=== PATIENT | male | born 1940 | race Caucasian/White ===

== ENCOUNTER 2017-03-11 12:57 | Inpatient (IN) | payer OTHER, MEDICARE ==
[~2017-03-11] VITALS: Ht 152.4 cm; Wt 77.6 kg
[~2017-03-11 12:57] MED LIST: ACET-2619 PO; AMLO-27 PO; AMLO10TA PO; ATOR20TA40 PO; BISA10SU27 PR; CALC1TAB75 PO; CIPR500T4 PO; CLON0.1T79 PO; FERR325E14 PO; FLUT0.057 NS; FLUT1DSK2 IH; GLU1I SUBQ; INSU100S22 SUBQ; LORA-476 PO; METO-460 PO; MIRABULK PO; MULT-1469 PO; ONDA4ODT1 PO; PANT40PD1 PO; POTA20TE62 PO; PRON INH; SERT50TA PO; SIME80CT70 PO; SLIDE SUBQ; SODI650T2 PO; SYN.1 PO; TRAM50TA94 PO; ZINC220C12 PO; [UNRECOGNIZED DRUG - CODE] PO; [UNRECOGNIZED DRUG - CODE] SUBQ
--- NOTE | 2017-03-11 12:57 | NUR ---
PT BIBA TO BED 6.
[2017-03-11 13:01] VITALS: BP 143/71
--- NOTE | 2017-03-11 13:05 | NUR ---
77M BIBA FROM [facility] C/O INCREASED CONFUSION FROM CHRONIC UTI; PT A&OX1 AT THIS TIME, VERBALLY RESPONSIVE; PERRLA; BL LUNG SOUNDS CLEAR, RR EVEN/UNLABORED AT THIS TIME; PT DENIES PAIN, N/V/D AT THIS TIME; PT NOTED W/ 16FR HORTON FROM [facility], SHUNT TO LEFT UPPER ARM, DIALYSIS SATURDAY, SATURDAY, SATURDAY; HX: UNSPECIFIED DEMENTIA, MAJOR DEPRESSION, ANXIETY DISORDER, HTN, GERD, OSTEOMYELITIS, ESRD, UTI, MRSA; PT NOTED W/ PRESSURE ULCER TO SACRAL REGION, PURPLE/RED DISCOLORATION TO LEFT ARM, RT HEEL DIABETIC ULCER; PT PLACED ON MONITOR, RESTING IN BED W/ HOB ELEVATED AND IN LOWEST POSITION; POSITIONED FOR COMFORT; ER MD MADE AWARE OF STATUS. WILL CONTINUE TO MONITOR.
--- NOTE | 2017-03-11 13:05 | NUR ---
Note undone in EDM - 03/11/17 at 1739 by MEDSS 77M ALINE FROM [facility] C/O INCREASED CONFUSION FROM CHRONIC UTI; PT A&OX1 AT THIS TIME, VERBALLY RESPONSIVE; PERRLA; BL LUNG SOUNDS CLEAR, RR EVEN/UNLABORED AT THIS TIME; PT DENIES PAIN, N/V/D AT THIS TIME; PT NOTED W/ 16FR HORTON FROM [facility], SHUNT TO LEFT UPPER ARM, DIALYSIS SATURDAY, SATURDAY, SATURDAY; HX: UNSPECIFIED DEMENTIA, MAJOR DEPRESSION, ANXIETY DISORDER, HTN, GERD, OSTEOMYELITIS, ESRD, UTI, MRSA; PT NOTED W/ PRESSURE ULCER TO SACRAL REGION (STAGE 4), PURPLE/RED DISCOLORATION TO LEFT ARM, RT HEEL DIABETIC ULCER; PT PLACED ON MONITOR, RESTING IN BED W/ HOB ELEVATED AND IN LOWEST POSITION; POSITIONED FOR COMFORT; ER MD MADE AWARE OF STATUS. WILL CONTINUE TO MONITOR.
[2017-03-11] MEDS ORDERED: NACL 0.9% 1,000 ML IV ONE (13:09)
[2017-03-11] MEDS ORDERED: [UNRECOGNIZED DRUG - CODE] IJ (13:24)
--- NOTE | 2017-03-11 13:45 | NUR ---
PT TAKEN TO CT VIA [facility]UR[facility]I ACCOMPANIED BY [facility] AT THIS TIME.
[2017-03-11 13:47] LABS: BASOPHILS # (AUTO) 0.1 K/uL (0.00-0.22); BASOPHILS % (AUTO) 1.2 % (0.0-2.0); EOSINOPHILS # (AUTO) 0.7 K/uL (0-0.4); EOSINOPHILS % (AUTO) 8.3 % (0.0-4.0); HEMATOCRIT 36.3 % (36-52); LYMPHOCYTES # (AUTO) 1.7 K/uL (2.0-11.5); LYMPHOCYTES % (AUTO) 21.1 % (20.5-51.1); MEAN CORPUSCULAR HEMOGLOBIN 33 pg (27-31); MEAN CORPUSCULAR HGB CONC 33 g/dL (33-37); MEAN CORPUSCULAR VOLUME 98 fL (80-94); MONOCYTES # (AUTO) 0.7 K/uL (0.8-1.0); MONOCYTES % (AUTO) 8.5 % (1.7-9.3); NEUTROPHILS % (AUTO) 60.9 % (42.2-75.2); PLATELET COUNT (AUTO) 259 K/uL (140-450); RED BLOOD CELL COUNT(AUTO) 3.69 MIL/uL (4.20-6.10); RED CELL DISTRIBUTION WIDTH 16.1 % (11.6-13.7); WHITE BLOOD COUNT (AUTO) 8.2 K/uL (4.8-10.8)
[2017-03-11 14:00] LABS: ANION GAP 11.9 (8-16); CALCIUM 8.9 mg/dL (8.5-10.1); CARBON DIOXIDE 31.3 mmol/L (21-32); CHLORIDE 108 mmol/L (98-107); CREATININE 3.5 mg/dL (0.6-1.3); GLUCOSE 91 mg/dL (74-106); POTASSIUM 3.2 mmol/L (3.5-5.1); SODIUM SERUM 148 mmol/L (136-145); UREA NITROGEN, BLOOD 44 mg/dL (7-18)
[2017-03-11 14:06] LABS: ALANINE AMINOTRANSFERASE 35 U/L (12-78); ALCOHOL, BLOOD < 3 mg/dL (<3); ALKALINE PHOSPHATASE 108 U/L (46-116); ASPARTATE AMINOTRANSFERASE 33 U/L (15-37); BILIRUBIN,DIRECT 0.1 mg/dL (0.0-0.3); TOTAL BILIRUBIN 0.5 mg/dL (0.0-1.0); TOTAL PROTEIN, SERUM 7.3 g/dL (6.4-8.2)
[2017-03-11 14:11] LABS: INR 1.1 (0.8-1.2); PARTIAL THROMBOPLASTIN TIME 27.9 secs (22-35.6); PROTHROMBIN TIME 10.7 secs (10.8-13.4)
[2017-03-11 14:24] LABS: LACTIC ACID 0.6 mmol/L (0.4-2.0)
--- NOTE | 2017-03-11 14:40 | NUR ---
PT APPEARS TO BE SLEEPING COMFORTABLY IN BED; RR EVEN/UNLABORED; NO ACUTE DISTRESS NOTED AT THIS TIME; WILL CONTINUE TO MONITOR.
[2017-03-11 15:26] LABS: APPEARANCE,URINE HAZY (CLEAR); BILIRUBIN,URINE NEGATIVE (NEGATIVE); BLOOD, URINE 3+ (NEGATIVE); COLOR,URINE YELLOW (YELLOW); LEUKOCYTE ESTERASE ,URINE 2+ (NEGATIVE); NITRITE, URINE NEGATIVE (NEGATIVE); PH,URINE 8.5 (5.0-9.0); PROTEIN,URINE 2+ (NEGATIVE); UGLUCOSE NEGATIVE (NEGATIVE); UROBILINOGEN,URINE 0.2 EU/dL (0.2 - 1)
[2017-03-11 15:35] LABS: AMPHETAMINE, URINE NEG. ng/ml (NEG <=1000); BARBITURATE, URINE NEG. ng/ml (NEG <=200); BENZODIAZEPINE, URINE NEG. ng/mL (NEG <=200); CANNABINOID, URINE NEG. ng/mL (NEG <=50); COCAINE, URINE NEG. ng/mL (NEG <=300); OPIATE, URINE NEG. ng/mL (NEG <=2000); PHENCYCLIDINE SCREEN,URINE NEG. ng/mL (NEG <=25)
[2017-03-11 16:00] LABS: BACTERIA,URINE 3+ /HPF (None Seen); RBC,URINE 11-20 (MOD) /HPF (0-5); SQUAMOUS EPITHELIAL CELL,UR 0-3 (FEW) /LPF (0-3 (FEW)); WBC,URINE 80-100 /HPF (0-5)
[2017-03-11] MEDS ORDERED: cefTRIAXone 2,000 MG in DEXTROSE 5% 100 ML IV ONE (16:45)
--- NOTE | 2017-03-11 16:45 | NUR ---
PT APPEARS TO BE RESTING COMFORTABLY IN BED; RR EVEN/UNLABORED; NO ACUTE DISTRESS NOTED AT THIS TIME; WILL CONTINUE TO MONITOR.
[2017-03-11] MEDS ORDERED: cefTRIAXone 2,000 MG VIAL ONE (16:53)
[2017-03-11] MEDS ORDERED: ALBUTEROL 0.083% 2.5 MG/3 ML NEBU INH PRN (17:05)
[2017-03-11] MEDS ORDERED: ONDANSETRON 4 MG ODT PO PRN (17:05)
[2017-03-11] MEDS ORDERED: GLUCAGON 1 MG VIAL SUBQ PRN (17:05)
[2017-03-11] MEDS ORDERED: BISACODYL 10 MG SUPP RC PRN (17:05)
[2017-03-11] MEDS ORDERED: LORazepam 2 MG/ML VIAL IVP PRN (17:15)
--- NOTE | 2017-03-11 17:43 | NUR ---
Gita jeffery in [facility] - 03/11/17 at 1743 by NALLELY REPORT GIVEN TO COSME CHAHAL.
--- NOTE | 2017-03-11 17:43 | NUR ---
REPORT GIVEN TO FELA RN; ASKED TO BRING PT TO FLOOR IN 15 MINUTES ROOM IS NOT READY; WILL CONTINUE TO MONITOR.
--- NOTE | 2017-03-11 18:07 | NUR ---
Patient will be admitted to care of DR. SOTO. Admited to TELEMETRY. Will go to room 114. Belongings list completed. Report to COSME CHAHAL.
--- NOTE | 2017-03-11 18:25 | NUR ---
PT BROUGHT IN FROM ER IN [facility], PT SLEEPING WITH EYES CLOSED, OPENS EYES TO VOICE, RESP EVEN UNLABORED ON ROOM AIR, 20G PIV TO RIGHT AC, SL'D, SUPRAPUBIC CATH IN PLACE, DRAINING CLOUDY, VITALS HR 86, BP 160/77, RR 18, O2SAT 97% ON ROOM AIR, CALL OBANDO WITHIN REACH, SIDE RAILS UP, BED LOCKED IN LOW POSITION, WILL CONTINUE TO MONITOR.
--- NOTE | 2017-03-11 19:11 | NUR ---
REPORT GIVEN TO TRAINING PROGRAM MANAGER NURSE, PT IN STABLE CONDITION.
--- NOTE | 2017-03-11 19:30 | NUR ---
RECEIVED REPORT FROM DAY RN AT BEDSIDE, PATIENT IS AAOX2 RESTING IN BED, PATIENT IS LETHARGIC, ON ROOM AIR, NO SOB OR SIGN OF DISTRESS, IV TO RIGHT AC PATENT AND INTACT, SKIN NON INTACT WITH SACRAL ULCERED, RIGHT HEEL ULCER AND BRUISING TO EXTREMITIES. NOTED SUPRAPUBIC CATHETER DRAINING TO GRAVITY, DISCUSSED PLAN OF CARE WITH PATIENT, PATIENT NEEDS REINFORCEMENT, SAFETY MEASURES CHECKED, CALL LIGHT WITHIN REACH, WILL CONTINUE TO MONITOR
[2017-03-11 20:00] VITALS: BP 160/72
--- NOTE | 2017-03-11 20:15 | NUR ---
FAMILY AT BEDSIDE, PATIENT STATED HE WAS HUNGRY, FAMILY FED PATIENT SANDWICH, PATIENT TOLERATED WELL.
[2017-03-11] MEDS: traMADol 50 MG TAB PO SCH (20:36)
[2017-03-11] MEDS: ATORVASTATIN 20 MG TAB PO SCH (20:36)
[2017-03-11] MEDS: BLOOD GLUCOSE MONITORING 1 DEV DEV FS SCH (20:36)
[2017-03-11] MEDS: FLUTICASONE NASAL 50 MCG/ACTUATION 16 GM BTL NS SCH (20:37)
--- NOTE | 2017-03-11 20:38 | NUR ---
PM MEDS ADMINISTERED, PATIENT TOLERATED WELL, CALL LIGHT WITHIN REACH. WILL CONTINUE TO MONITOR
[2017-03-11] MEDS ORDERED: NON-FORMULARY ITEM (Insulin Glargine,Hum.rec.anlog (Lantus Solostar) 10 UNIT) SUBQ SCH (21:00)
[2017-03-11] MEDS ORDERED: VITAMIN D3 PO SCH (21:00)
[2017-03-11] MEDS ORDERED: NON-FORMULARY ITEM (Clonidine Hydrochloride (Clonidine) 0.1 MG) PO SCH (21:00)
[2017-03-11] MEDS ORDERED: FERROUS SULFATE PO SCH (21:00)
[2017-03-11] MEDS ORDERED: CALCIUM CARBONATE PO SCH (21:00)
[2017-03-11] MEDS ORDERED: NON-FORMULARY ITEM (Fluticasone/Salmeterol* (Advair 250-50 Diskus*) 1 DSK) IH SCH (21:00)
--- NOTE | 2017-03-11 22:30 | NUR ---
PATIENT SLEEPING, NO SIGN OF DISTRESS, CALL LIGHT WITHIN REACH. WILL CONTINUE TO MONITOR.
[2017-03-12] VITALS: BP 160/72
--- NOTE | 2017-03-12 00:15 | NUR ---
VITAL SIGNS STABLE, NO SOB OR SIGN OF DISTRESS, CALL LIGHT WITHIN REACH. WILL CONTINUE TO MONITOR.
--- NOTE | 2017-03-12 02:30 | NUR ---
PATIENT SLEEPING, NO SIGN OF DISTRESS, CALL LIGHT WITHIN REACH. WILL CONTINUE TO MONITOR.
--- NOTE | 2017-03-12 04:00 | NUR ---
PATIENT SLEEPING, NO SIGN OF DISTRESS, CALL LIGHT WITHIN REACH, WILL CONTINUE TO MONITOR
[2017-03-12 06:13] LABS: BASOPHILS # (AUTO) 0.1 K/uL (0.00-0.22); BASOPHILS % (AUTO) 1.3 % (0.0-2.0); EOSINOPHILS # (AUTO) 0.8 K/uL (0-0.4); EOSINOPHILS % (AUTO) 9.4 % (0.0-4.0); HEMATOCRIT 35.4 % (36-52); HEMOGLOBIN 11.2 g/dL (12.0-18.0); LYMPHOCYTES # (AUTO) 1.7 K/uL (2.0-11.5); LYMPHOCYTES % (AUTO) 19.7 % (20.5-51.1); MEAN CORPUSCULAR HEMOGLOBIN 32 pg (27-31); MEAN CORPUSCULAR HGB CONC 32 g/dL (33-37); MEAN CORPUSCULAR VOLUME 100 fL (80-94); MONOCYTES # (AUTO) 0.8 K/uL (0.8-1.0); MONOCYTES % (AUTO) 9.6 % (1.7-9.3); NEUTROPHILS # (AUTO) 5.1 K/uL (1.8-7.7); PLATELET COUNT (AUTO) 260 K/uL (140-450); RED BLOOD CELL COUNT(AUTO) 3.56 MIL/uL (4.20-6.10); RED CELL DISTRIBUTION WIDTH 15.9 % (11.6-13.7); WHITE BLOOD COUNT (AUTO) 8.5 K/uL (4.8-10.8)
[2017-03-12 06:24] LABS: ANION GAP 15.1 (8-16); CALCIUM 8.5 mg/dL (8.5-10.1); CARBON DIOXIDE 26.7 mmol/L (21-32); CHLORIDE 109 mmol/L (98-107); GLUCOSE 89 mg/dL (74-106); SODIUM SERUM 148 mmol/L (136-145); UREA NITROGEN, BLOOD 48 mg/dL (7-18)
[2017-03-12 06:29] LABS: MAGNESIUM 1.9 mg/dL (1.8-2.4); PHOSPHORUS 3.1 mg/dL (2.5-4.9)
[2017-03-12 06:35] LABS: POTASSIUM 2.8 mmol/L (3.5-5.1)
--- NOTE | 2017-03-12 06:58 | NUR ---
RECEIVED CRITICAL K+ 2.8, PAGED Checo LOPEZ. RECEIVED ORDERS FOR K RIDER [id number], WILL FOLLOW UP WITH ORDERS.
[2017-03-12] MEDS: BLOOD GLUCOSE MONITORING 1 DEV DEV FS SCH ×4 (07:30→21:21)
--- NOTE | 2017-03-12 07:30 | NUR ---
RECEIVED PT REPORT AT BEDSIDE FROM NIGHT NURSE. PT IS SLEEPING AND SHOWS NO S/S OF DISTRESS NOTED ON ROOM AIR. NOTED IV ON THE RIGHT HAND INTACT AND PATENT. NOTED DRESSING ON THE RIGHT HEEL CLEAN DRY AND INTACT. PT HAS A SUPRAPUBIC CATHETER DRAINING CLOUDY STRAW URINE. PT BED IS LOWERED WITH HOB AT 45 DEGREES AND CALL LIGHT WITHIN REACH.
--- NOTE | 2017-03-12 07:30 | NUR ---
ENDORSED PATIENT TO DAY RN AT BEDSIDE, PATIENT IN STABLE CONDITION
[2017-03-12 08:00] VITALS: BP 172/89
[2017-03-12] MEDS ORDERED: KCL 20 MEQ/WATER INJ PREMIX 200 ML IV SCH (08:00)
--- NOTE | 2017-03-12 08:00 | NUR ---
PT BP 172/89. DR SOTO WAS PAGED TO NOTIFY NO BP MEDICATIONS LISTED FOR PT.
--- NOTE | 2017-03-12 08:15 | NUR ---
PT HAS BP MEDICATIONS ON EMAR WILL ADMINISTER SCHEDULED MEDICATIONS.
[2017-03-12] MEDS: FLUTICASONE NASAL 50 MCG/ACTUATION 16 GM BTL NS SCH ×2 (09:00→21:35)
--- NOTE | 2017-03-12 09:02 | NUR ---
PATIENT HAS BEEN SCREENED AND CATEGORIZED HIGH NUTRITION RISK. PATIENT WILL BE SEEN WITHIN 1-2 DAYS OF ADMISSION. 03/12/17-03/13/[address]
[2017-03-12] MEDS: FERROUS SULFATE 325 MG TABEC PO SCH ×2 (09:30→17:00)
[2017-03-12] MEDS: PANTOPRAZOLE 40 MG TABEC PO SCH (09:30)
[2017-03-12] MEDS: VIT-B COMP/VIT-C/FOLIC ACID 1 TAB PO SCH (09:30)
[2017-03-12] MEDS: ZINC SULF 220 MG CAP PO SCH (09:30)
[2017-03-12] MEDS: amLODIPine 5 MG TAB PO SCH (09:31)
--- NOTE | 2017-03-12 09:34 | NUR ---
ADMINISTERING SCHEDULED MEDICATIONS. PT IS AAOX1 AND SHOWS NO S/S OF DISTRESS NOTED ON ROOM AIR.
[2017-03-12] MEDS: cloNIDine 0.1 MG TAB PO SCH ×2 (09:36→21:36)
[2017-03-12] MEDS: CALCIUM CARB/VIT-D 500 MG/200 IU 1 TAB PO SCH ×2 (09:36→21:36)
[2017-03-12] MEDS: LEVOTHYROXINE 0.1 MG TAB PO SCH (09:37)
[2017-03-12] MEDS: POTASSIUM CHLORIDE 10 MEQ TABER PO SCH ×2 (09:37→17:00)
[2017-03-12] MEDS: ASCORBIC ACID 500 MG TAB PO SCH (09:37)
[2017-03-12] MEDS: SIMETHICONE 80 MG TAB.CHEW PO SCH ×3 (09:37→17:00)
[2017-03-12] MEDS: traMADol 50 MG TAB PO SCH ×2 (09:37→21:37)
--- NOTE | 2017-03-12 09:48 | NUR ---
PHARMACY MADE ME AWARE OF MEDICATIONS THAT NEED TO BE CLARIFIED BY DR. WILL NOTIFY DR SORENSON WHEN HE ARRIVES ON UNIT.
--- NOTE | 2017-03-12 10:26 | NUR ---
CALLED DR SORENSON TO CONFIRM HE WOULD COME IN TODAY TO SEE PT.
--- NOTE | 2017-03-12 10:30 | NUR ---
DR FRAGOSO CONFIRMED HE WOULD COME SEE PT LATER TODAY.
--- NOTE | 2017-03-12 11:30 | NUR ---
PT IS RESTING COMFORTABLY IN BED WITH AT BEDSIDE. PT SHOWS NO S/S OF DISTRESS NOTED ON ROOM AIR.
--- NOTE | 2017-03-12 11:45 | NUR ---
PT BEING SEEM BY DR FRAGOSO.
--- NOTE | 2017-03-12 12:00 | NUR ---
DR FRAGOSO WAS MADE AWARE OF CLARIFICATION OF MEDICATIONS FOR PT. PLACED IN ORDERS.
--- NOTE | 2017-03-12 12:30 | NUR ---
PT VOMITTED SOME OF HIS LUNCH. WILL ADMINISTER PRN MEDICATION FOR NAUSEA AND VOMITING.
[2017-03-12] MEDS: ONDANSETRON 4 MG/2 ML VIAL IVP PRN (13:23)
--- NOTE | 2017-03-12 13:50 | NUR ---
DR FRAGOSO NOTIFIED NURSE OF HD ORDERS. WILL CALL [facility] HD NURSE FOR HD LATER TODAY.
--- NOTE | 2017-03-12 14:00 | NUR ---
CALLED L[facility]ON LEE ABOUT PT ORDERS OF HD. LEVON LEE CONFIRMED NURSE WILL BE ON SITE AT 1600.
[2017-03-12 16:00] VITALS: BP 117/55
--- NOTE | 2017-03-12 16:00 | NUR ---
PT WAS CALLED FOR CONSENT FOR PT TO GET HD. CONSENT WAS VERIFIED BETWEEN TWO RNS (MARTHA RN AND VERNON RN). PT AGREED TO HD FOR PT. WILL CONTINUE WITH CARE.
--- NOTE | 2017-03-12 16:15 | NUR ---
PT HAD LARGE LOOSE BM. PT WAS GIVEN PERINEAL CARE, URINARY CATHETER CARE, CHANGED LINENS, AND REPOSITIONED. PT TOLERATED ACTIVITY WELL. PT STATES NO PAIN AT THIS TIME. PT HAS RHEUMATOLOGY NURSE SACRAL WOUND (PLEASE SEE WOUND ASSESSMENT). PT SHOWS NO S/S OF DISTRESS ON ROOM AIR. [facility] HD NURSE IS AT BEDSIDE. WILL CONTINUE TO MONITOR.
--- NOTE | 2017-03-12 16:26 | NUR ---
03/12/17 RD INITIAL ASSESSMENT COMPLETED PLEASE REFER TO NUTRITION ASSESSMENT UNDER CARE ACTIVITY FOR ESTIMATED NUTRITIONAL NEEDS. 1. CONTINUE 60 G CONSISTENT CARBOHYDRATE, CARDIAC DIET 2. ADD NOVASOURCE RENAL 1 CAN BID 3. CONTINUE NEPHRO-SHANTEL 1X/DAILY 4. CONTINUE ZINC 1X/DAILY 5. RD TO FOLLOW-UP 2-3 DAYS; HIGH RISK DICK TAPIA, RD
--- NOTE | 2017-03-12 17:30 | NUR ---
PT IS IN BED RESTING WHILE GETTING HD FROM [facility] NURSE. PT IS TOLERATING PROCEDURE WELL. PT SHOWS NO S/S OF DISTRESS ON ROOM AIR.
[2017-03-12] MEDS: INSULIN LISPRO SLIDING SCALE 100 UNITS/ML VIAL SUBQ PRN (17:42)
--- NOTE | 2017-03-12 19:30 | NUR ---
[facility] HD NURSE LET ME KNOW OF OUTPUT OF 2L AND BP STABLE AT 133/64. PT SHOWS NO S/S OF DISTRESS ON ROOM AIR. PT IN BED RESTING COMFORTABLY.
--- NOTE | 2017-03-12 20:00 | NUR ---
CANDLE MOLDER ALERT,VERBALLY RESPONSIVE. AFEBRILE, NOT IN ACUTE DISTRESS. NO PAIN OR DISCOMFORT NOTED. PT.HAD HEMODIALYSIS. WITH LEFT UPPER ARM AV SHUNT INTACT,(+) BRUIT. SUPRAPUBIC CATHETER DRAINING CLOUDY YELLOW URINE. VS STABLE, WILL CONTINUE TO MONITOR. NEEDS ATTENDED.
[2017-03-12] MEDS: INSULIN DETEMIR 100 UNITS/ML 10 ML VIAL SUBQ SCH (21:00)
--- NOTE | 2017-03-12 21:21 | NUR ---
ACCUCHECK=39. WILL GIVE D50 IVP.
[2017-03-12] MEDS: DEXTROSE 50% 50 ML SYR IVP PRN (21:25)
--- NOTE | 2017-03-12 21:25 | NUR ---
1 AMPULE D50 1 AMP GIVEN. WILL RECHECK BS.
--- NOTE | 2017-03-12 21:30 | NUR ---
DINNER GIVEN BY [employer] F[employer]ER.
[2017-03-12] MEDS: ATORVASTATIN 20 MG TAB PO SCH (21:36)
--- NOTE | 2017-03-12 21:36 | NUR ---
DUE MEDICATIONS GIVEN.
--- NOTE | 2017-03-12 23:03 | NUR ---
BS [id number].
[2017-03-13] VITALS: BP 121/56
--- NOTE | 2017-03-13 | NUR ---
ASLEEP,NOT IN ANY KIND OF DISTRESS. NO PAIN OR DISCOMFORT NOTED. SIDE RAILS UP,CALL LIGHT WITHIN REACH. KEPT WARM AND COMFORTABLE. VS REMAIN STABLE.
--- NOTE | 2017-03-13 04:00 | NUR ---
ASLEEP,NOT IN ANY KIND OF DISTRESS. NO PAIN OR DISCOMFORT NOTED. NO SIGNIFICANT CHANGE IN CONDITION. WILL CONTINUE TO MONITOR.
[2017-03-13] MEDS: BLOOD GLUCOSE MONITORING 1 DEV DEV FS SCH ×4 (06:03→20:54)
--- NOTE | 2017-03-13 06:03 | NUR ---
[id number]. NO INSULIN COVERAGE NEEDED.
[2017-03-13 06:17] LABS: BASOPHILS # (AUTO) 0.1 K/uL (0.00-0.22); BASOPHILS % (AUTO) 1.1 % (0.0-2.0); EOSINOPHILS # (AUTO) 0.6 K/uL (0-0.4); EOSINOPHILS % (AUTO) 8.8 % (0.0-4.0); HEMATOCRIT 32.8 % (36-52); HEMOGLOBIN 10.8 g/dL (12.0-18.0); LYMPHOCYTES # (AUTO) 1.9 K/uL (2.0-11.5); LYMPHOCYTES % (AUTO) 27.3 % (20.5-51.1); MEAN CORPUSCULAR HEMOGLOBIN 32 pg (27-31); MEAN CORPUSCULAR HGB CONC 33 g/dL (33-37); MEAN CORPUSCULAR VOLUME 98 fL (80-94); MONOCYTES # (AUTO) 0.7 K/uL (0.8-1.0); MONOCYTES % (AUTO) 9.6 % (1.7-9.3); NEUTROPHILS # (AUTO) 3.6 K/uL (1.8-7.7); NEUTROPHILS % (AUTO) 53.2 % (42.2-75.2); PLATELET COUNT (AUTO) 210 K/uL (140-450); RED BLOOD CELL COUNT(AUTO) 3.34 MIL/uL (4.20-6.10); RED CELL DISTRIBUTION WIDTH 15.6 % (11.6-13.7); WHITE BLOOD COUNT (AUTO) 6.9 K/uL (4.8-10.8)
[2017-03-13 06:39] LABS: ANION GAP 9.3 (8-16); CALCIUM 8.3 mg/dL (8.5-10.1); CARBON DIOXIDE 31.5 mmol/L (21-32); CHLORIDE 102 mmol/L (98-107); CREATININE 2.7 mg/dL (0.6-1.3); GLUCOSE 112 mg/dL (74-106); POTASSIUM 3.8 mmol/L (3.5-5.1); SODIUM SERUM 139 mmol/L (136-145); UREA NITROGEN, BLOOD 24 mg/dL (7-18)
[2017-03-13 06:55] LABS: MAGNESIUM 1.5 mg/dL (1.8-2.4); PHOSPHORUS 2.6 mg/dL (2.5-4.9)
--- NOTE | 2017-03-13 07:10 | NUR ---
ENDORSED CARE TO MARTHA AGUIAR.
--- NOTE | 2017-03-13 07:12 | NUR ---
RECEIVED REPORT FROM NIGHT NURSE AT BEDSIDE. PT IS SLEEPING COMFORTABLY IN BED AND SHOWS NO S/S OF DISTRESS NOTED. PT HAS NOTED DRESSING ON THE RIGHT HEEL. PT FEET ARE ELEVATED WITH PILLOWS. PT HAS SUPRAPUBIC CATHETER WITH MINIMAL CLOUDY YELLOW URINE. PT BED IS LOWERED WITH CALL LIGHT WITHIN REACH.
[2017-03-13 08:00] VITALS: BP 135/69
[2017-03-13] MEDS: FERROUS SULFATE 325 MG TABEC PO SCH ×2 (08:00→17:56)
[2017-03-13] MEDS ORDERED: [UNRECOGNIZED DRUG - OTHER] SCH (09:00)
[2017-03-13] MEDS ORDERED: DARBEPOETIN ALFA SCH (09:00)
--- NOTE | 2017-03-13 09:09 | NUR ---
RECEIVED CALL FROM LAB PT POSITIVE FROM MRSA OF [facility]. WILL NOTIFY
--- NOTE | 2017-03-13 09:15 | NUR ---
PAGED DR Checo SOTO WILL WAIT FOR CALL BACK.
[2017-03-13] MEDS: ASCORBIC ACID 500 MG TAB PO SCH (09:30)
[2017-03-13] MEDS: cloNIDine 0.1 MG TAB PO SCH ×2 (09:30→20:53)
[2017-03-13] MEDS: VIT-B COMP/VIT-C/FOLIC ACID 1 TAB PO SCH (09:30)
[2017-03-13] MEDS: traMADol 50 MG TAB PO SCH ×2 (09:30→20:53)
[2017-03-13] MEDS: CALCIUM CARB/VIT-D 500 MG/200 IU 1 TAB PO SCH ×2 (09:30→20:52)
[2017-03-13] MEDS: LEVOTHYROXINE 0.1 MG TAB PO SCH (09:30)
[2017-03-13] MEDS: SIMETHICONE 80 MG TAB.CHEW PO SCH ×3 (09:31→17:56)
[2017-03-13] MEDS: amLODIPine 5 MG TAB PO SCH (09:31)
[2017-03-13] MEDS: POTASSIUM CHLORIDE 10 MEQ TABER PO SCH ×2 (09:31→17:56)
[2017-03-13] MEDS: PANTOPRAZOLE 40 MG TABEC PO SCH (09:31)
[2017-03-13] MEDS: ZINC SULF 220 MG CAP PO SCH (09:31)
--- NOTE | 2017-03-13 09:46 | NUR ---
ADMINISTERED SCHEDULED MEDICATIONS. PT THEN STATED HE WANTED TO VOMIT. PROVIDED EMESIS BASIN. PT VOMITED 50CC. WILL NOTIFY
[2017-03-13] MEDS ORDERED: BACITRACIN OINT 15000 UNITS/30 GM TUBE TP SCH (10:00)
--- NOTE | 2017-03-13 11:25 | NUR ---
RECEIVED URINE CULTURE POSITIVE FOR ECOLI WILL NOTIFY
--- NOTE | 2017-03-13 12:30 | NUR ---
PT IS AT BEDSIDE AND STATED PT DOES NOT FEEL LIKE EATING. PT STATED HIS STOMACH DOES NOT FEEL WELL. WILL ADMINISTER SCHEDULED MEDICATION MYLICON 40MG.
[2017-03-13] MEDS: FLUTICASONE NASAL 50 MCG/ACTUATION 16 GM BTL NS SCH ×2 (12:34→20:52)
[2017-03-13] MEDS: MUPIROCIN 2% OINT 22 GM TUBE TP SCH (12:35)
[2017-03-13] MEDS: CHLORHEXADINE GLUC 2% CLOTH TP SCH (12:35)
[2017-03-13] MEDS: INSULIN LISPRO SLIDING SCALE 100 UNITS/ML VIAL SUBQ PRN (12:59)
--- NOTE | 2017-03-13 13:00 | NUR ---
PER GLOBAL PROCESS OWNER PT ATE A FEW BITES AND HALF WAY THROUGH VOMITED. VOMIT WAS YELLOW IN COLOR PER GLOBAL PROCESS OWNER.
--- NOTE | 2017-03-13 14:16 | NUR ---
RECEIVED CALL FROM LAB POSITIVE BLOOD CULTURE OF GRAM POSITIVE CLUSTER. WILL NOTIFY
--- NOTE | 2017-03-13 14:30 | NUR ---
DR FRAGOSO IS AWARE OF POSITIVE LAB RESULTS. WILL CONTINUE TO MONITOR.
--- NOTE | 2017-03-13 15:00 | NUR ---
DR FRAGOSO AWARE OF MAGNESIUM 1.5. ORDERS RECEIVED.
[2017-03-13] MEDS ORDERED: MAG SULF 2000 MG/WATER PREMIX 50 ML IV SCH (15:30)
[2017-03-13 16:00] VITALS: BP 142/74
--- NOTE | 2017-03-13 18:00 | NUR ---
ADMINISTERED SCHEDULED MEDICATION PT STATES HE DOES NOT FEEL NAUSEAS. PT SWALLOWED MEDICATIONS.
--- NOTE | 2017-03-13 18:05 | NUR ---
STOOD BY TO MAKE SURE PT DID NOT VOMIT AFTER. PT HAD VOMITING AFTER. WILL GIVE ZOFRAN AND CONTINUE TO MONITOR PT. PT IS NOW RESTING IN BED WITH NO S/S OF DISTRESS NOTED ON ROOM AIR. PT HAS CALL LIGHT WITHIN REACH. WILL DO FREQUENT ROUNDING.
--- NOTE | 2017-03-13 18:30 | NUR ---
NOTIFIED DR SOTO OF PT STATING HE DOES NOT FEEL NAUSEAS/VOMIT HOWEVER AFTER ADMINISTERING MEDICATIONS AND PROVIDING PT WITH FOOD PT THEN VOMITS CONTENTS. DR SOTO ORDERED FOR GI CONSULT DR SCALES.
--- NOTE | 2017-03-13 18:45 | NUR ---
DR SCALES [facility]. DR SCALES STATED HE WILL BE IN 03/14/17.
--- NOTE | 2017-03-13 19:20 | NUR ---
PT IN BED SLEEPING AND SHOWS NO S/S OF DISTRESS. GAVE REPORT TO NIGHT NURSE AT BEDSIDE. PT ENDORSED IN STABLE CONDITION.
--- NOTE | 2017-03-13 19:30 | NUR ---
RECEIVED REPORT FROM AM NURSE. PT RESTING IN BED, AOX2, ABLE TO VERBALIZE NEEDS. PT DENIES NAUSEA/VOMITING. PT DENIES CHEST PAIN, SOB OR S/S OF ACUTE DISTRESS. LEFT AV SHUNT NOTED, ASYMPTOMATIC, WILL FOLLOW LIMB PRECAUTIONS AND RESTRICTIONS. RIGHT HAND AND ARM EDEMA NOTED. MULTIPLE SKIN DISCOLORATIONS NOTED ON BUE. RIGHT HEEL DRESSING CLEAN DRY AND INTACT. SUPRAPUBIC CATH, DRAINING MINIMAL CLOUDY YELLOW URINE. IV ACCESS ASYMPTOMATIC, PATENT AND INTACT. SALINE LOCKED. DISCUSSED AND REVIEWED PLAN OF CARE WITH PT. WILL CONTINUE TO REINFORCE. SAFETY MEASURES ENSURED. CALL LIGHT WITHIN REACH. WILL CONTINUE TO MONITOR.
[2017-03-13] MEDS ORDERED: VANCOMYCIN PER PHARMACY MC PRN (19:35)
[2017-03-13 20:00] VITALS: BP 134/65
[2017-03-13] MEDS ORDERED: VANCOMYCIN 1GM/DEXT 5% PREMIX 200 ML IV SCH (20:00)
[2017-03-13] MEDS ORDERED: MEROPENEM 500 MG VIAL IV ONE (20:45)
[2017-03-13] MEDS: INSULIN DETEMIR 100 UNITS/ML 10 ML VIAL SUBQ SCH (20:51)
[2017-03-13] MEDS: ATORVASTATIN 20 MG TAB PO SCH (20:53)
[2017-03-13] MEDS: MEROPENEM 500 MG in NACL 0.9% 50 ML IV SCH (20:54)
--- NOTE | 2017-03-13 21:00 | NUR ---
MEDICATIONS ADMINISTERED WITH EDUCATION. PT VERBALIZES UNDERSTANDING AND TOLERATED MEDS WELL. ALL NEEDS MET. SAFETY MEASURES ENSURED. CALL LIGHT WITHIN REACH. WILL CONTINUE TO MONITOR.
[2017-03-13] MEDS ORDERED: VANCOMYCIN 1,000 MG VIAL ONE (21:04)
[2017-03-14] VITALS: BP 134/65
--- NOTE | 2017-03-14 | NUR ---
CONDITION STABLE. ALL NEEDS MET. SAFETY MEASURES ENSURED. CALL LIGHT WITHIN REACH.
[2017-03-14] MEDS: LORazepam 1 MG TAB PO PRN ×2 (03:25→20:28)
--- NOTE | 2017-03-14 03:25 | NUR ---
PT HEARD YELLING FROM HALLWAY. PT YELLING, PT STATING HE WANTS TO GET OUT. PT CONFUSED AND SLIGHTLY AGITATED. ADMINISTERED ATIVAN PO WITH EDUCATION. PT AGREED, PT TOLERATED MED WELL. SAFETY MEASURES ENSURED. CALL LIGHT WITHIN REACH. WILL CONTINUE TO MONITOR.
--- NOTE | 2017-03-14 06:15 | NUR ---
ATTEMPTED TO ADMINISTER D50, UNABLE TO PUSH THROUGH SMALL BORE IV CATH. PT ASYMPTOMATIC, CONDITION STABLE. WILL RECHECK BLOOD SUGAR. Addendum: 03/14/17 at 0755 by Kiel Hernandez RN WRONG TIME CORRECT TIME: 0645
--- NOTE | 2017-03-14 06:30 | NUR ---
BLOOD SUGAR 48, PT ASYMPTOMATIC, ABLE TO TALK AND VERBALIZE NEEDS. GAVE 2 CUPS OF JUICE. WILL RECHECK BLOOD SUGAR.
[2017-03-14] MEDS: BLOOD GLUCOSE MONITORING 1 DEV DEV FS SCH ×4 (06:38→20:19)
[2017-03-14] MEDS: DEXTROSE 50% 50 ML SYR IVP PRN (06:39)
--- NOTE | 2017-03-14 06:45 | NUR ---
ATTEMPTED TO ADMINISTER D50, UNABLE TO PUSH THROUGH SMALL BORE IV CATH. PT ASYMPTOMATIC, CONDITION STABLE. WILL RECHECK BLOOD SUGAR.
--- NOTE | 2017-03-14 07:00 | NUR ---
RECHECKED BLOOD SUGAR 92. PT ASYMPTOMATIC. CONDITION STABLE. SNACKS GIVEN. WILL ENDORSE TO AM NURSE.
--- NOTE | 2017-03-14 07:41 | NUR ---
CONDITION STABLE. ENDORSED PLAN OF CARE TO AM NURSE.
--- NOTE | 2017-03-14 07:42 | NUR ---
PT ALERT AND ORIENTED X2 WITH PERIODS OF CONFUSION, TELUGU SPEAKING. BREATHING EVENLY AND UNLABORED, NO SIGNS OF ACUTE DISTRESS. SKIN IS WARM AND DRY. OFFLOAD TO PRESSURE AREAS. NO SIGNS OF ANY BOWEL/BLADDER DISCOMFORT. SUPRAPUBIC CATHETER INTACT, NO OUTPUT NOTED AT THIS TIME. NOTED RIGHT ARM SWOLLEN, ELEVATED ON PILLOWS. LEFT ARM AV SHUNT WITH POSITIVE BRUIT AND THRILL. NO C/O ANY PAIN OR DISCOMFORT AT THIS TIME, ALL NEEDS ATTENDED, SAFETY PRECAUTIONS MAINTAINED. CALL LIGHT WITHIN REACH.
[2017-03-14 08:00] VITALS: BP 149/68
[2017-03-14] MEDS: POTASSIUM CHLORIDE 10 MEQ TABER PO SCH ×2 (08:00→16:40)
[2017-03-14] MEDS: PANTOPRAZOLE 40 MG TABEC PO SCH (08:00)
[2017-03-14] MEDS: FERROUS SULFATE 325 MG TABEC PO SCH ×2 (08:00→16:41)
[2017-03-14] MEDS: FLUTICASONE NASAL 50 MCG/ACTUATION 16 GM BTL NS SCH ×2 (09:00→20:22)
[2017-03-14] MEDS: SIMETHICONE 80 MG TAB.CHEW PO SCH ×3 (09:00→16:40)
[2017-03-14] MEDS: cloNIDine 0.1 MG TAB PO SCH ×2 (09:00→20:23)
[2017-03-14] MEDS: ZINC SULF 220 MG CAP PO SCH (09:00)
[2017-03-14] MEDS: amLODIPine 5 MG TAB PO SCH (09:00)
[2017-03-14] MEDS: LEVOTHYROXINE 0.1 MG TAB PO SCH (09:00)
[2017-03-14] MEDS: CALCIUM CARB/VIT-D 500 MG/200 IU 1 TAB PO SCH ×2 (09:00→20:22)
[2017-03-14] MEDS: traMADol 50 MG TAB PO SCH ×2 (09:00→20:22)
[2017-03-14] MEDS: VIT-B COMP/VIT-C/FOLIC ACID 1 TAB PO SCH (09:00)
[2017-03-14] MEDS: MEROPENEM 500 MG in NACL 0.9% 50 ML IV SCH ×2 (09:00→20:21)
[2017-03-14] MEDS: ASCORBIC ACID 500 MG TAB PO SCH (09:00)
--- NOTE | 2017-03-14 09:15 | NUR ---
SPOKE WITH [facility], AWARE OF HD APPOINTMENT TODAY.
--- NOTE | 2017-03-14 10:19 | NUR ---
WAS SEEN BY DR. BAIRD, RECEIVED NEW PR ORDER FOR RIGHT HEEL WOUND. NOTED AND CARRIED OUT.
[2017-03-14] MEDS: CHLORHEXADINE GLUC 2% CLOTH TP SCH (11:33)
[2017-03-14] MEDS: MUPIROCIN 2% OINT 22 GM TUBE TP SCH (11:34)
--- NOTE | 2017-03-14 13:00 | NUR ---
HD NURSE MARILY ON FLOOR. REPORT GIVEN, WILL DO HD TODAY. CONTINUE TO MONITOR.
--- NOTE | 2017-03-14 13:14 | NUR ---
SPOKE WITH VIET VALDES, CONSENT OBTAINED FOR RIGHT HEEL TRI PHASE BONE SCAN. SPOKE WITH [facility]. UNABLE TO PERFORM BONE SCAN AT THIS TIME D/T HD TODAY. WILL DO PROCEDURE TOMORROW.
--- NOTE | 2017-03-14 13:57 | NUR ---
NEW LAB ORDERS RECEIVED FROM Jesus PETE NOTED AND CARRIED OUT.
[2017-03-14] MEDS: INSULIN LISPRO SLIDING SCALE 100 UNITS/ML VIAL SUBQ PRN ×2 (15:35→20:28)
[2017-03-14 16:00] VITALS: BP 97/56
--- NOTE | 2017-03-14 16:10 | NUR ---
PT FINISHED HD PER REPORT BY MARILY FROM DIALYSIS. OUTPUT IS 2.1L. CONTINUE TO MONITOR.
[2017-03-14] MEDS ORDERED: THERAHONEY GEL 42.5 GM TP PRN (18:20)
[2017-03-14] MEDS ORDERED: GAUZE TP PRN (18:20)
[2017-03-14] MEDS ORDERED: NACL 0.9% IRR 250 ML BOTTLE IR PRN (18:20)
[2017-03-14] MEDS ORDERED: COMPOSITE DRESSING TP PRN (18:20)
--- NOTE | 2017-03-14 18:21 | NUR ---
PT AWAKE AND RESPONSIVE, RESTING WELL IN BED. WILL ENDORSE TO ONCOMING SHOW JUMPING INSTRUCTOR NURSE FOR CONTINUITY OF CARE.
--- NOTE | 2017-03-14 19:30 | NUR ---
RECEIVED REPORT FROM AM NURSE. PT RESTING IN BED, AOX2, ABLE TO VERBALIZE NEEDS. PT DENIES NAUSEA/VOMITING. PT DENIES CHEST PAIN, SOB OR S/S OF ACUTE DISTRESS. LEFT AV SHUNT NOTED, ASYMPTOMATIC, WILL FOLLOW LIMB PRECAUTIONS AND RESTRICTIONS. RIGHT HAND AND ARM EDEMA NOTED, ELEVATED WITH PILLOWS. MULTIPLE SKIN DISCOLORATIONS NOTED ON BUE. SACRAL WOUND, OPEN TO AIR WITH ZGUARD. RIGHT HEEL DRESSING CLEAN DRY AND INTACT. SUPRAPUBIC CATH, DRAINING MINIMAL CLOUDY YELLOW URINE. IV ACCESS ASYMPTOMATIC, PATENT AND INTACT. SALINE LOCKED. DISCUSSED AND REVIEWED PLAN OF CARE WITH PT. WILL CONTINUE TO REINFORCE. SAFETY MEASURES ENSURED. CALL LIGHT WITHIN REACH. WILL CONTINUE TO MONITOR.
[2017-03-14] MEDS: ATORVASTATIN 20 MG TAB PO SCH (20:22)
[2017-03-14] MEDS: INSULIN DETEMIR 100 UNITS/ML 10 ML VIAL SUBQ SCH (20:26)
--- NOTE | 2017-03-14 20:40 | NUR ---
ADMINISTERED MEDICATIONS WITH EDUCATION. WILL CONTINUE TO REINFORCE TEACHING. ALL NEEDS MET. SAFETY MEASURES ENSURED. CALL LIGHT WITHIN REACH.
--- NOTE | 2017-03-14 20:40 | NUR ---
PT HEARD YELLING FROM THE HALLWAY, SLIGHTLY AGITATED. PT STATING "HE WANTS TO GO TO THE HOSPITAL." PT REORIENTED TO TIME, PLACE AND SITUATION. ADMINISTERED ATIVAN PO, WILL CONTINUE TO MONITOR. ADMINISTERED MEDICATIONS WITH EDUCATION. WILL CONTINUE TO REINFORCE TEACHING. PT TOLERATED MEDS WELL.
--- NOTE | 2017-03-14 22:21 | NUR ---
PT STILL RESTLESS. ADMINISTERED ATIVAN IV. WILL CONTINUE TO MONITOR.
[2017-03-15] VITALS: BP 148/68
--- NOTE | 2017-03-15 | NUR ---
PT SLEEPING COMFORTABLY. CONDITION STABLE. ALL NEEDS MET. SAFETY MEASURES ENSURED. CALL LIGHT WITHIN REACH. WILL CONTINUE TO MONITOR.
--- NOTE | 2017-03-15 01:30 | NUR ---
WOUND CARE PERFORMED ORDERED. PT TOLERATED WELL. ALL NEEDS MET. CONDITION STABLE. SAFETY MEASURES ENSURED. CALL LIGHT WITHIN REACH.
[2017-03-15] MEDS: COMPOSITE DRESSING TP SCH ×2 (02:05→13:00)
[2017-03-15] MEDS: GAUZE TP SCH ×2 (02:05→13:00)
[2017-03-15] MEDS: NACL 0.9% IRR 250 ML BOTTLE IR SCH ×2 (02:05→13:00)
[2017-03-15] MEDS: Z-GUARD PASTE TP SCH ×2 (02:06→13:22)
[2017-03-15] MEDS: THERAHONEY GEL 42.5 GM TP SCH ×2 (02:06→13:00)
--- NOTE | 2017-03-15 04:00 | NUR ---
PT REPOSITIONED, OFFLOAD PRESSURE SITES. SLEEPING COMFORTABLY. CONDITION STABLE. ALL NEEDS MET. SAFETY MEASURES ENSURED. CALL LIGHT WITHIN REACH. WILL CONTINUE TO MONITOR.
[2017-03-15 06:40] LABS: BASOPHILS # (AUTO) 0.1 K/uL (0.00-0.22); BASOPHILS % (AUTO) 0.9 % (0.0-2.0); EOSINOPHILS # (AUTO) 0.6 K/uL (0-0.4); EOSINOPHILS % (AUTO) 6.4 % (0.0-4.0); HEMATOCRIT 33.6 % (36-52); HEMOGLOBIN 10.9 g/dL (12.0-18.0); LYMPHOCYTES # (AUTO) 1.7 K/uL (2.0-11.5); LYMPHOCYTES % (AUTO) 19.5 % (20.5-51.1); MEAN CORPUSCULAR HEMOGLOBIN 32 pg (27-31); MEAN CORPUSCULAR HGB CONC 32 g/dL (33-37); MEAN CORPUSCULAR VOLUME 99 fL (80-94); MONOCYTES # (AUTO) 0.9 K/uL (0.8-1.0); MONOCYTES % (AUTO) 10.7 % (1.7-9.3); NEUTROPHILS # (AUTO) 5.6 K/uL (1.8-7.7); NEUTROPHILS % (AUTO) 62.5 % (42.2-75.2); PLATELET COUNT (AUTO) 208 K/uL (140-450); RED BLOOD CELL COUNT(AUTO) 3.39 MIL/uL (4.20-6.10); RED CELL DISTRIBUTION WIDTH 15.2 % (11.6-13.7); WHITE BLOOD COUNT (AUTO) 8.9 K/uL (4.8-10.8)
[2017-03-15] MEDS: BLOOD GLUCOSE MONITORING 1 DEV DEV FS SCH ×3 (06:52→17:09)
[2017-03-15] MEDS: INSULIN LISPRO SLIDING SCALE 100 UNITS/ML VIAL SUBQ PRN (06:54)
[2017-03-15 06:59] LABS: ANION GAP 12.3 (8-16); CALCIUM 8.4 mg/dL (8.5-10.1); CHLORIDE 100 mmol/L (98-107); CREATININE 3.1 mg/dL (0.6-1.3); GLUCOSE 165 mg/dL (74-106); POTASSIUM 3.3 mmol/L (3.5-5.1); SODIUM SERUM 137 mmol/L (136-145); UREA NITROGEN, BLOOD 29 mg/dL (7-18)
[2017-03-15 07:03] LABS: MAGNESIUM 1.7 mg/dL (1.8-2.4); PHOSPHORUS 1.9 mg/dL (2.5-4.9)
--- NOTE | 2017-03-15 07:10 | NUR ---
RECEIVED PATIENT REPORT AT BEDSIDE. PATIENT AWAKE AND ALERT. NO S/S OF DISTRESS NOTED AT THIS TIME. PATIENT ON ROOM AIR. PATIENT DENIES PAIN. IV LINE NOTED TO THE RIGHT WRIST SALINE LOCKED. LEFT AV SHUNT CLEAN AND INTACT. DRESSING NOTED TO THE RIGHT HEEL CLEAN, DRY AND INTACT. SUPRA PUBIC CATHETER IN PLACE, DRAINING YELLOW URINE. BED LOWERED WITH CALL LIGHT WITHIN REACH. WILL CONTINUE TO MONITOR
--- NOTE | 2017-03-15 07:27 | NUR ---
ENDORSED PLAN OF CARE TO AM NURSE. CONDITION STABLE.
[2017-03-15 07:46] VITALS: BP 135/66
[2017-03-15] MEDS: cloNIDine 0.1 MG TAB PO SCH (08:14)
[2017-03-15] MEDS: VIT-B COMP/VIT-C/FOLIC ACID 1 TAB PO SCH (08:15)
[2017-03-15] MEDS: SIMETHICONE 80 MG TAB.CHEW PO SCH ×3 (08:15→17:11)
[2017-03-15] MEDS: ZINC SULF 220 MG CAP PO SCH (08:15)
[2017-03-15] MEDS: POTASSIUM CHLORIDE 10 MEQ TABER PO SCH ×2 (08:15→17:11)
[2017-03-15] MEDS: PANTOPRAZOLE 40 MG TABEC PO SCH (08:15)
[2017-03-15] MEDS: FERROUS SULFATE 325 MG TABEC PO SCH ×2 (08:16→17:11)
[2017-03-15] MEDS: ASCORBIC ACID 500 MG TAB PO SCH (08:16)
[2017-03-15] MEDS: amLODIPine 5 MG TAB PO SCH (08:16)
[2017-03-15] MEDS: LEVOTHYROXINE 0.1 MG TAB PO SCH (08:17)
[2017-03-15] MEDS: traMADol 50 MG TAB PO SCH (08:17)
[2017-03-15] MEDS: FLUTICASONE NASAL 50 MCG/ACTUATION 16 GM BTL NS SCH (08:17)
[2017-03-15] MEDS: CALCIUM CARB/VIT-D 500 MG/200 IU 1 TAB PO SCH (08:17)
[2017-03-15 09:42] LABS: HEPATITIS B CORE ANTIBODY Negative (Negative); HEPATITIS B CORE, IGM Negative (Negative); HEPATITIS B SURFACE ANTIBODY Non Reactive (.); HEPATITIS B SURFACE ANTIGEN Negative (Negative)
[2017-03-15] MEDS: MEROPENEM 500 MG in NACL 0.9% 50 ML IV SCH (10:17)
[2017-03-15] MEDS ORDERED: VANCOMYCIN 1GM/DEXT 5% PREMIX 200 ML IV SCH (10:36)
--- NOTE | 2017-03-15 11:48 | NUR ---
CHECKED PT'S BS, 91. PROVIDED PT WITH WATER AND BOOST. CALL LIGHT WITHIN REACH. WILL CONTINUE TO MONITOR.
--- NOTE | 2017-03-15 12:02 | NUR ---
FAXED INFORMATION TO ANNELIESE ORTIZ .
--- NOTE | 2017-03-15 12:12 | NUR ---
03/15/17 RD FOLLOW-UP ASSESSMENT COMPLETED PLEASE REFER TO NUTRITION ASSESSMENT UNDER CARE ACTIVITY FOR ESTIMATED NUTRITIONAL NEEDS. 1. CONTINUE RENAL DIET + NOVASOURCE BID 2. D/C VITAMIN C SUPPLEMENT 3. CONTINUE NEPHRO-SHANTEL + IRON SUPPLEMENT 4. CONTINUE ZINC SUPPLEMENT 5. RD TO FOLLOW-UP 2-3 DAYS; HIGH RISK DICK TAPIA, RD
--- NOTE | 2017-03-15 12:20 | NUR ---
PATIENT SEEN BY DR GUNTER. DR MADE AWARE OF PATIENT'S MG LEVEL OF 1.7. ORDERS RECEIVED
--- NOTE | 2017-03-15 12:30 | NUR ---
SPOKE TO Nino NGUYEN/A NURSE, INFORMED HER ABOUT 'S ORDER OF DIALYSIS FOR [facility].
[2017-03-15] MEDS: SODIUM PHOS / POTASSIUM PHOS 1 PKT PDR PO SCH ×2 (12:51→17:12)
[2017-03-15] MEDS: CHLORHEXADINE GLUC 2% CLOTH TP SCH (12:51)
[2017-03-15] MEDS: MUPIROCIN 2% OINT 22 GM TUBE TP SCH (12:51)
--- NOTE | 2017-03-15 12:55 | NUR ---
TRIED HELP PT WITH LUNCH. PT ATE SOME SOUP AND REFUSED TO EAT MORE. WILL CONTINUE TO MONITOR.
[2017-03-15] MEDS ORDERED: MAG SULF 2000 MG/WATER PREMIX 50 ML IV SCH (13:00)
--- NOTE | 2017-03-15 14:03 | NUR ---
SPOKE WITH MITCH FROM [facility]. SHE SAID WHEN THE PATIENT IS DISCHARGED, HE CAN GO BACK TO HIS OLD ROOM, ROOM 125B UNDER DR. SOTO. CHIO AGUIARHYBRID CORN BREEDER TC PAPPAS.
--- NOTE | 2017-03-15 14:30 | NUR ---
PT CAME BACK TO UNIT ON [facility] WITH 2 QUALITY ASSURANCE LEAD. VS STABLE. CALL LIGHT WITHIN REACH. WILL CONTINUE TO MONITOR.
[2017-03-15] MEDS: ONDANSETRON 4 MG/2 ML VIAL IVP PRN (14:59)
--- NOTE | 2017-03-15 15:30 | NUR ---
PT HAD A BM. CLEANED AND CHANGED PT. PT TOLERATED WELL, BUT WAS STILL NAUSEA FROM PROCEDURE, WILL GIVE ZOFRAN. WILL CONTINUE TO MONITOR.
[2017-03-15 16:00] VITALS: BP 130/68
--- NOTE | 2017-03-15 18:43 | NUR ---
CALLED RESULT OF BONE SCAN TO DR. Jesus SOTO AND HE SAID TO CALL DR. BAIRD. DR. BAIRD CALLED AND HE WANTS TO CONTINUE MERREM AND VANCOMYCIN FOR 6 WEEKS. SPOKE TO KASIE FROM [facility] AND MADE AWARE.
[2017-03-15 18:48] VITALS: BP 130/68
[2017-03-15] MEDS ORDERED: MER500I IV (18:54)
[2017-03-15] MEDS ORDERED: VANC1PDS14 IV (18:55)
--- NOTE | 2017-03-15 19:00 | NUR ---
RECEIVED D/C ORDER. WILL START D/C PROCESS. PT IN STABLE CONDITION.
--- NOTE | 2017-03-15 19:27 | NUR ---
ENDORSED CARE OF PT TO CUSTOMER SOLUTIONS ARCHITECT NURSE AT BEDSIDE. PT IN STABLE CONDITION.
--- NOTE | 2017-03-15 19:30 | NUR ---
RECEIVED REPORT FROM LYNNETTE AGUIAR AT BEDSIDE. PT IS ALERT AWAKE ORIENTED X2 WITH CONFUSION. INITIAL ASSESSMENT DONE. NO S/S OF RESPIRATORY DISTRESS OR SOB NOTED. NO C/O PAIN OR ANY DISCOMFORT AT THIS TIME. PT IS READY FOR DISCHARGE GOING BACK TO [facility] INTERMEDIATE ROOM 125B. CALLED REPORT ALREADY TO MITCH AGUIAR AT [facility]. DISCHARGE INSTRUCTION REVIEWED TO PT BUT UNABLE TO COMPREHEND. JUST WAITING FOR [facility] TO PICK HIM UP. CALLED HIS SON GRISELDA VALDES AND NOTIFIED THAT PT WILL BE DISCHARGE AND GOING BACK TO [facility] [address]. INTERMEDIATE AND VERBALIZED UNDERSTANDING. CALL LIGHT WITHIN REACH. WILL CONTINUE TO MONITOR.
--- NOTE | 2017-03-15 20:35 | NUR ---
[facility] CAME TO [facility] PT @ 1999 AND THEY LEFT THE UNIT AROUND 2034. PT IS STABLE DURING THE DISCHARGE.
== END 2017-03-15 20:35 | DRG 871 ==
LOC: MED 12:58 → MTU 17:17
PROVIDERS: ADMIT Preventive Medicine Preventive Medicine/Occupational Environmental Medicine; ATTEND Preventive Medicine Preventive Medicine/Occupational Environmental Medicine
PROC: 5A1D60Z (ICD-10-PCS; principal; 2017-03-12)
DX: A41.9 Sepsis, unspecified organism (principal); N18.6 End stage renal disease; L89.614 Pressure ulcer of right heel, stage 4; N39.0 Urinary tract infection, site not specified; E87.0 Hyperosmolality and hypernatremia; I12.0 Hypertensive chronic kidney disease with stage 5 chronic kidney disease or end stage renal disease; M86.9 Osteomyelitis, unspecified; J44.9 Chronic obstructive pulmonary disease, unspecified; I25.10 Atherosclerotic heart disease of native coronary artery without angina pectoris; F03.90 Unspecified dementia, unspecified severity, without behavioral disturbance, psychotic disturbance, mood disturbance, and anxiety; E11.21 Type 2 diabetes mellitus with diabetic nephropathy; K21.9 Gastro-esophageal reflux disease without esophagitis; E03.9 Hypothyroidism, unspecified; F32.9 Major depressive disorder, single episode, unspecified; L89.159 Pressure ulcer of sacral region, unspecified stage; E87.6 Hypokalemia; E11.22 Type 2 diabetes mellitus with diabetic chronic kidney disease; E11.65 Type 2 diabetes mellitus with hyperglycemia; E11.69 Type 2 diabetes mellitus with other specified complication; E78.5 Hyperlipidemia, unspecified; E83.39 Other disorders of phosphorus metabolism; E83.42 Hypomagnesemia; E83.52 Hypercalcemia; D63.1 Anemia in chronic kidney disease; Z16.12 Extended spectrum beta lactamase (ESBL) resistance; Z16.24 Resistance to multiple antibiotics; B96.20 Unspecified Escherichia coli [E. coli] as the cause of diseases classified elsewhere; B96.5 Pseudomonas (aeruginosa) (mallei) (pseudomallei) as the cause of diseases classified elsewhere; Z22.322 Carrier or suspected carrier of Methicillin resistant Staphylococcus aureus; Z90.49 Acquired absence of other specified parts of digestive tract; Z28.21 Immunization not carried out because of patient refusal; Z99.2 Dependence on renal dialysis; Z88.6 Allergy status to analgesic agent; Z88.5 Allergy status to narcotic agent; Z88.8 Allergy status to other drugs, medicaments and biological substances; Z79.899 Other long term (current) drug therapy; Z79.4 Long term (current) use of insulin; Z87.01 Personal history of pneumonia (recurrent); Z86.73 Personal history of transient ischemic attack (TIA), and cerebral infarction without residual deficits; Z82.49 Family history of ischemic heart disease and other diseases of the circulatory system; Z83.3 Family history of diabetes mellitus
CPT/HCPCS: 36415; 70450; 71010; 78315; 80048; 80053; 80076; 80202; 80305; 81001; 82948; 83605; 83735; 84100; 85025; 85610; 85651; 85730; 86140; 86704; 86706; 87040; 87070; 87081; 87086; 87186; 87340; 90935; 93005; 96361; 96365; 99285; A9503; G0482; J0696; J1815; J2060; J2185; J2405; J3370; J3475; J3480; J7030; J7060

== ENCOUNTER 2017-04-06 11:13 | Inpatient (IN) | payer OTHER, MEDICARE ==
[~2017-04-06] VITALS: Ht 177.8 cm; Wt 78.0 kg
[~2017-04-06 11:13] MED LIST changes: -ACET-2619 PO; -AMLO10TA PO; -CIPR500T4 PO; +MER500I IV; -METO-460 PO; -MIRABULK PO; -SERT50TA PO; -SODI650T2 PO; +[UNRECOGNIZED DRUG - CODE] IJ; -[UNRECOGNIZED DRUG - CODE] SUBQ
--- NOTE | 2017-04-06 11:13 | NUR ---
Patient was BIBA at this time.
--- NOTE | 2017-04-06 11:16 | NUR ---
Patient taken to bed 06 via gurney per EMS.
[2017-04-06 11:30] VITALS: BP 90/50
[2017-04-06] MEDS ORDERED: NACL 0.9% 1,000 ML IV ONE (11:30)
--- NOTE | 2017-04-06 11:35 | NUR ---
RECEIVED PT BY EMS FROM [facility], COMBATIVE GCS 13-- HX--DM, HTN, ESRD ON HEMODIALYSIS, MUSCLE WEAKNESS, MRSA WOUND, COPD, CAD, CVA, DEMENTIA, GERD, HYPOTHYROIDISM, OSTEOMYELITIS, DEPRESSION SACRALCOCCYX PRESSURE INJURY STAGE 4, DIABETIC INJURY RIGHT HEEL, OPEN ECCHYMOSIS LEFT HAND, SUPRAPUBIC HORTON DENIES N/V/D; SKIN IS PINK/WARM/DRY; AAOX4 WITH EVEN AND STEADY GAIT; LUNGS CLEAR BL; HR EVEN AND REGULAR; PT DENIES ANY FEVER, CP, SOB, OR COUGH AT THIS TIME; PATIENT STATES PAIN OF 0/10 AT THIS TIME; VSS; PATIENT POSITIONED FOR COMFORT; HOB ELEVATED; BEDRAILS UP X2; BED DOWN. ER MD MADE AWARE OF PT STATUS.
[2017-04-06] MEDS ORDERED: FLUT1DSK2 IH (11:52)
[2017-04-06] MEDS ORDERED: PANT40PK PO (11:52)
[2017-04-06] MEDS ORDERED: VITA1TAB44 PO (11:52)
[2017-04-06] MEDS ORDERED: BISA-213 RC (11:52)
[2017-04-06 12:36] LABS: BASOPHILS # (AUTO) 0.1 K/uL (0.00-0.22); BASOPHILS % (AUTO) 1.4 % (0.0-2.0); EOSINOPHILS # (AUTO) 0.4 K/uL (0-0.4); HEMATOCRIT 36.3 % (36-52); HEMOGLOBIN 11.9 g/dL (12.0-18.0); LYMPHOCYTES # (AUTO) 1.4 K/uL (2.0-11.5); LYMPHOCYTES % (AUTO) 15.7 % (20.5-51.1); MEAN CORPUSCULAR HEMOGLOBIN 32 pg (27-31); MEAN CORPUSCULAR HGB CONC 33 g/dL (33-37); MEAN CORPUSCULAR VOLUME 98 fL (80-94); MONOCYTES # (AUTO) 0.7 K/uL (0.8-1.0); MONOCYTES % (AUTO) 7.9 % (1.7-9.3); NEUTROPHILS # (AUTO) 6.5 K/uL (1.8-7.7); PLATELET COUNT (AUTO) 260 K/uL (140-450); RED BLOOD CELL COUNT(AUTO) 3.71 MIL/uL (4.20-6.10); RED CELL DISTRIBUTION WIDTH 13.9 % (11.6-13.7); WHITE BLOOD COUNT (AUTO) 9.1 K/uL (4.8-10.8)
[2017-04-06 12:43] LABS: APPEARANCE,URINE HAZY (CLEAR); BILIRUBIN,URINE NEGATIVE (NEGATIVE); BLOOD, URINE 2+ (NEGATIVE); COLOR,URINE YELLOW (YELLOW); LEUKOCYTE ESTERASE ,URINE 2+ (NEGATIVE); NITRITE, URINE NEGATIVE (NEGATIVE); PH,URINE 8.5 (5.0-9.0); PROTEIN,URINE 2+ (NEGATIVE); UGLUCOSE NEGATIVE (NEGATIVE); UROBILINOGEN,URINE 0.2 EU/dL (0.2 - 1)
[2017-04-06 12:50] LABS: LACTIC ACID 1.1 mmol/L (0.4-2.0)
[2017-04-06 12:57] LABS: BACTERIA,URINE 1+ /HPF (None Seen); RBC,URINE 0-5 (RARE) /HPF (0-5); SQUAMOUS EPITHELIAL CELL,UR 0-3 (FEW) /LPF (0-3 (FEW)); WBC,URINE 80-100 /HPF (0-5)
[2017-04-06 12:58] LABS: AMPHETAMINE, URINE NEG. ng/ml (NEG <=1000); BARBITURATE, URINE NEG. ng/ml (NEG <=200); BENZODIAZEPINE, URINE NEG. ng/mL (NEG <=200); CANNABINOID, URINE NEG. ng/mL (NEG <=50); COCAINE, URINE NEG. ng/mL (NEG <=300); OPIATE, URINE NEG. ng/mL (NEG <=2000); PHENCYCLIDINE SCREEN,URINE NEG. ng/mL (NEG <=25)
[2017-04-06 12:59] LABS: ALANINE AMINOTRANSFERASE 27 U/L (12-78); ALBUMIN 2.6 g/dL (3.4-5.0); ALCOHOL, BLOOD < 3 mg/dL (<3); ALKALINE PHOSPHATASE 103 U/L (46-116); ANION GAP 15.5 (8-16); ASPARTATE AMINOTRANSFERASE 37 U/L (15-37); BILIRUBIN,DIRECT 0.2 mg/dL (0.0-0.3); CALCIUM 8.6 mg/dL (8.5-10.1); CARBON DIOXIDE 29.4 mmol/L (21-32); CHLORIDE 105 mmol/L (98-107); CREATININE 3.7 mg/dL (0.6-1.3); GLUCOSE 118 mg/dL (74-106); POTASSIUM 3.9 mmol/L (3.5-5.1); SODIUM SERUM 146 mmol/L (136-145); TOTAL BILIRUBIN 0.6 mg/dL (0.0-1.0); TOTAL PROTEIN, SERUM 6.9 g/dL (6.4-8.2); UREA NITROGEN, BLOOD 45 mg/dL (7-18)
[2017-04-06 13:05] LABS: INR 1.1 (0.8-1.2); PARTIAL THROMBOPLASTIN TIME 30.5 secs (22-35.6); PROTHROMBIN TIME 10.8 secs (10.8-13.4)
--- NOTE | 2017-04-06 13:10 | NUR ---
PT TAKEN OFF THE UNIT FOR CT VIA GURNEY BY ZORAIDA REY
[2017-04-06] MEDS ORDERED: GLUCAGON 1 MG VIAL SUBQ PRN (14:30)
[2017-04-06] MEDS ORDERED: cefTRIAXone 2,000 MG in DEXTROSE 5% 100 ML IV ONE (14:30)
[2017-04-06] MEDS ORDERED: ONDANSETRON 4 MG ODT PO PRN (14:30)
[2017-04-06] MEDS ORDERED: BISACODYL 10 MG SUPP RC PRN (14:30)
[2017-04-06] MEDS ORDERED: DEXTROSE 50% 50 ML SYR IVP PRN (14:35)
[2017-04-06] MEDS ORDERED: ONDANSETRON 4 MG/2 ML VIAL IVP PRN (14:35)
--- NOTE | 2017-04-06 14:48 | NUR ---
Patient will be admitted to care of DR SOTO. Admited to TELE. Will go to room 121A. Belongings list completed. Report to COSME CHAHAL.
[2017-04-06] MEDS ORDERED: cefTRIAXone 2,000 MG VIAL ONE (15:12)
--- NOTE | 2017-04-06 15:40 | NUR ---
PT BROUGHT IN FROM ER IN [facility], PT AWAKE, CONFUSED, DOES NOT FOLLOW COMMANDS, MOVES ALL EXT X2, RESP EVEN UNLABORED ON ROOM AIR, SKIN WARM DRY COLOR WNL, PRESSURE ULCER HEALING? ON SACRUM, BRUISING TO LFT ARM, HEEL WOUND COVERED WITH DRESSING, PICTURES TAKEN IN ER. PT WITH SUPRAPUBIC HORTON DRAINING YELLOW URINE, LEFT UPPER ARM WITH DIALYSIS SHUNT, RIGHT AC IV, ANTIBIOTIC INFUSING, VSS, PT ORIENTED TO ROOM AND FLOOR, CALL OBANDO WITHIN REACH, SIDE RAILS UP, BED ALARM ON, WILL CONTINUE TO MONITOR.
[2017-04-06 15:45] VITALS: BP 154/71
[2017-04-06] MEDS: PANTOPRAZOLE 40 MG TABEC PO SCH (16:30)
[2017-04-06] MEDS: BLOOD GLUCOSE MONITORING 1 DEV DEV FS SCH ×2 (16:43→20:42)
[2017-04-06] MEDS: POTASSIUM CHLORIDE 10 MEQ TABER PO SCH (16:52)
[2017-04-06] MEDS: SIMETHICONE 80 MG TAB.CHEW PO SCH (16:52)
--- NOTE | 2017-04-06 16:56 | NUR ---
PT REFUSES TO TAKE ANY PO MEDS OR NOT EVEN WATER BY MOUTH AT THIS TIME.
--- NOTE | 2017-04-06 18:20 | NUR ---
DR SOTO PAGED TO NOTIFY THAT PT IS AGGITATED, GRABS NURSES ARMS OR ATTEMPTS TO HIT NURSES WITH CARE, DR SOTO MADE AWARE THAT PT NOT TAKING ANY PO LIQ OR MEDICATION, ATIVAN 1MG IVP Q4HR PRN TLELPHONE ORDERE RECEIVED AT THIS TIME.
[2017-04-06] MEDS: LORazepam 2 MG/ML VIAL IVP PRN (18:32)
--- NOTE | 2017-04-06 19:30 | NUR ---
REPORT GIVEN TO [employer] PROGRAMMER NURSE, PT IN STABLE CONDITION
--- NOTE | 2017-04-06 19:31 | NUR ---
RECEIVED REPORT FROM DAY RN FOR CONTINUITY OF CARE. PATIENT IS A&OX1, DROWSY BUT RESPONSIVE TO LIGHT PAIN, UNABLE TO VERBALIZE UNDERSTANDING OF CARE PLAN AT THIS TIME. SHIFT ASSESSMENT DONE,VS TAKEN, STABLE AT THIS TIME. NO S/S OF RESPIRATORY DISTRESS OR DISCOMFORT NOTED ON ROOM AIR. FLACC-0. RT AC IV PATENT AND FLUSHED. PATIENT HAS AV SHUNT TO LT UPPER ARM, RESTRICTED EXTREMITY WRISTBAND IN PLACE. SUPRAPUBIC CATHETER IN PLACE DRAINING CLEAR YELLOW URINE. PATIENT ON WOUND CARE BED WITH BILATERAL HEEL BOOTS IN PLACE. PATIENT HAS OLD HEALED SACRAL WOUND AND RT HEEL WOUND WITH DRESSING IN PLACE. SAFETY/FALL/CONTACT PRECAUTIONS ENFORCED. CALL LIGHT WITHIN REACH. WILL CONTINUE TO MONITOR.
[2017-04-06 20:00] VITALS: BP 136/73
[2017-04-06] MEDS ORDERED: NON-FORMULARY ITEM (Fluticasone/Salmeterol* (Advair 250-50 Diskus*) 1 DSK) IH SCH ×2 (21:00)
[2017-04-06] MEDS: INSULIN DETEMIR 100 UNITS/ML 10 ML VIAL SUBQ SCH (21:00)
[2017-04-06] MEDS: cloNIDine 0.1 MG TAB PO SCH (21:00)
[2017-04-06] MEDS: FERROUS SULFATE 325 MG TABEC PO SCH (21:00)
[2017-04-06] MEDS: CALCIUM CARB/VIT-D 500 MG/200 IU 1 TAB PO SCH (21:00)
[2017-04-06] MEDS: traMADol 50 MG TAB PO SCH (21:00)
[2017-04-06] MEDS: ATORVASTATIN 20 MG TAB PO SCH (21:00)
[2017-04-06] MEDS ORDERED: PANTOPRAZOLE 40 MG INJ VIAL IVP SCH (21:00)
[2017-04-06] MEDS ORDERED: MEROPENEM 500 MG VIAL IV SCH (21:00)
[2017-04-06] MEDS: FLUTICASONE NASAL 50 MCG/ACTUATION 16 GM BTL NS SCH (21:40)
[2017-04-06] MEDS: MEROPENEM 500 MG in NACL 0.9% 50 ML IV SCH (21:40)
--- NOTE | 2017-04-06 21:40 | NUR ---
IV ANTIBIOTICS ADMINISTERED AND NASAL SPRAY. PATIENT DROWSY AND UNABLE TO TAKE P.O. MEDICATIONS AT THIS TIME. TURNED AND CLEANED PATIENT. WILL CONTINUE TO MONITOR. CLOSELY.
--- NOTE | 2017-04-06 22:15 | NUR ---
TURNED AND REPOSITIONED PATIENT, PATIENT HAD MODERATE LIQUID BOWEL MOVEMENT. SAFETY MEASURES ENFORCED, WILL CONTINUE TO MONITOR.
[2017-04-07] VITALS: BP 144/61
--- NOTE | 2017-04-07 00:10 | NUR ---
PATIENT TURNED AND REPOSITIONED. VITAL SIGNS STABLE AT THIS TIME. PATIENT DROWSY BUT WITHDRAWALS TO PAIN. WILL CONTINUE TO MONITOR CLOSELY.
--- NOTE | 2017-04-07 02:06 | NUR ---
PATIENT SLEEPING AT THIS TIME. NO S/S OF DISTRESS OR DISCOMFORT NOTED. WILL CONTINUE TO MONITOR.
--- NOTE | 2017-04-07 03:54 | NUR ---
TURNED AND REPOSITIONED PATIENT. VITAL SIGNS STABLE AT THIS TIME. WILL CONTINUE TO MONITOR PATIENT CLOSELY.
[2017-04-07 04:00] VITALS: BP 145/67
--- NOTE | 2017-04-07 06:00 | NUR ---
BLOOD SUGAR TAKEN, NO COVERAGE NEEDED. PATIENT ASLEEP AT THIS TIME, WILL CONTINUE TO MONITOR.
[2017-04-07] MEDS: PANTOPRAZOLE 40 MG TABEC PO SCH ×2 (06:16→16:12)
[2017-04-07] MEDS: LEVOTHYROXINE 0.1 MG TAB PO SCH (06:16)
[2017-04-07] MEDS: BLOOD GLUCOSE MONITORING 1 DEV DEV FS SCH ×4 (06:16→20:25)
--- NOTE | 2017-04-07 07:20 | NUR ---
ENDORSED PATIENT TO DAY RN FOR CONTINUITY OF CARE, PATIENT IS IN STABLE CONDITION.
--- NOTE | 2017-04-07 07:25 | NUR ---
REPORT RECEIVED FROM POST SECONDARY PROFESSIONAL, PT RESTING WITH EYES CLOSED, OPENS EYES TO TOUCH, RETURNS BACK TO SLEEP IMMEDIATELY, RESP EVEN UNLABORED, SKIN WARM DRY COLOR WNL, PT APPEARS IN NO PAIN OR DISCOMFORT, PLAN REVIEWED, CALL OBANDO WITHIN REACH, SIDE RAILS UP, BED LOCKED IN LOW POSITION, WILL CONTINUE TO MONITOR.
[2017-04-07 07:26] LABS: ANION GAP 15.4 (8-16); CALCIUM 8.5 mg/dL (8.5-10.1); CARBON DIOXIDE 28.7 mmol/L (21-32); CHLORIDE 107 mmol/L (98-107); GLUCOSE 101 mg/dL (74-106); POTASSIUM 3.1 mmol/L (3.5-5.1); SODIUM SERUM 148 mmol/L (136-145); UREA NITROGEN, BLOOD 50 mg/dL (7-18)
[2017-04-07 07:28] LABS: BASOPHILS # (AUTO) 0.1 K/uL (0.00-0.22); BASOPHILS % (AUTO) 1.1 % (0.0-2.0); EOSINOPHILS # (AUTO) 0.6 K/uL (0-0.4); HEMATOCRIT 35.1 % (36-52); HEMOGLOBIN 11.5 g/dL (12.0-18.0); LYMPHOCYTES # (AUTO) 1.8 K/uL (2.0-11.5); MEAN CORPUSCULAR HEMOGLOBIN 32 pg (27-31); MEAN CORPUSCULAR HGB CONC 33 g/dL (33-37); MEAN CORPUSCULAR VOLUME 99 fL (80-94); MONOCYTES % (AUTO) 12.5 % (1.7-9.3); NEUTROPHILS # (AUTO) 4.8 K/uL (1.8-7.7); NEUTROPHILS % (AUTO) 58.4 % (42.2-75.2); PLATELET COUNT (AUTO) 238 K/uL (140-450); RED BLOOD CELL COUNT(AUTO) 3.55 MIL/uL (4.20-6.10); RED CELL DISTRIBUTION WIDTH 14.1 % (11.6-13.7); WHITE BLOOD COUNT (AUTO) 8.3 K/uL (4.8-10.8)
[2017-04-07 07:30] LABS: CREATININE 4.1 mg/dL (0.6-1.3)
[2017-04-07 07:35] LABS: MAGNESIUM 1.9 mg/dL (1.8-2.4); PHOSPHORUS 4.7 mg/dL (2.5-4.9)
--- NOTE | 2017-04-07 07:40 | NUR ---
CRITICAL LAB VALUE REPORTED TO DR SOTO, [place], K 3.1, BUN 50, BISQUE GRADER 4.1, K RIDER 40MEG IV X1 ORDER RECEIVED.
[2017-04-07] MEDS ORDERED: KCL 20 MEQ/WATER INJ PREMIX 200 ML IV ONE (07:45)
[2017-04-07 08:00] VITALS: BP 158/83
[2017-04-07] MEDS: POTASSIUM CHLORIDE 10 MEQ TABER PO SCH ×2 (08:00→16:13)
[2017-04-07] MEDS ORDERED: KCL 20 MEQ/WATER INJ PREMIX 200 ML IV SCH (08:13)
[2017-04-07] MEDS: MEROPENEM 500 MG in NACL 0.9% 50 ML IV SCH ×2 (08:34→20:21)
[2017-04-07] MEDS: amLODIPine 5 MG TAB PO SCH (08:54)
[2017-04-07] MEDS: cloNIDine 0.1 MG TAB PO SCH ×2 (08:54→10:24)
[2017-04-07] MEDS: FERROUS SULFATE 325 MG TABEC PO SCH (09:00)
[2017-04-07] MEDS ORDERED: VIT-B COMP/VIT-C/FOLIC ACID 1 TAB PO SCH (09:00)
[2017-04-07] MEDS: VIT-B COMP/VIT-C/FOLIC ACID 1 TAB PO SCH (09:00)
[2017-04-07] MEDS: traMADol 50 MG TAB PO SCH ×2 (09:12→20:22)
[2017-04-07] MEDS: ZINC SULF 220 MG CAP PO SCH (09:12)
[2017-04-07] MEDS: SIMETHICONE 80 MG TAB.CHEW PO SCH ×3 (09:12→16:12)
[2017-04-07] MEDS: ASCORBIC ACID 500 MG TAB PO SCH (09:13)
[2017-04-07] MEDS: CALCIUM CARB/VIT-D 500 MG/200 IU 1 TAB PO SCH (09:14)
[2017-04-07] MEDS: FLUTICASONE NASAL 50 MCG/ACTUATION 16 GM BTL NS SCH ×2 (09:15→20:21)
--- NOTE | 2017-04-07 09:15 | NUR ---
PT AROUSES EASILY BY VOICE, RESPONDS APPROPRIATELY TO QUESTIONS, PT CALM COOPERATIVE, NO AGRESSIVE BEHAVIOR NOTED, TOLERATED PO MEDS, SITTING UP EATING BREAKFAST WITH SOME ASSIST, PT DENIES PAIN OR DISCOMFORT, WILL CONTINUE TO MONITOR.
--- NOTE | 2017-04-07 10:00 | NUR ---
PERICARE DONE, BED BATH GIVEN, SUPRAPUBIC CATH REMAINS, DRAINING WELL, SITE CLEAR, WILL CONTINUE TO MONITOR.
--- NOTE | 2017-04-07 10:35 | NUR ---
DR RAMIREZ AT BEDSIDE FOR EVAL
[2017-04-07] MEDS: DEXTROSE 5% 500 ML IV SCH ×2 (11:20→20:21)
[2017-04-07 12:00] VITALS: BP 129/63
--- NOTE | 2017-04-07 13:41 | NUR ---
VOMITED X1, MOD AMOUNT, ZOFRAN GIVEN AT THIS TIME, WILL CONTINUE TO MONITOR.
--- NOTE | 2017-04-07 15:08 | NUR ---
PT RESTING QUIETLY WITH EYES CLOSED, AROUSES EASILY, CALM, COOPERATIVE, NO FURTHER VMITING NOTED, POSITION CHANGED.
[2017-04-07 16:00] VITALS: BP 131/65
[2017-04-07] MEDS ORDERED: VANCOMYCIN PER PHARMACY MC PRN (16:45)
[2017-04-07] MEDS ORDERED: VANCOMYCIN 1GM/DEXT 5% PREMIX 200 ML IV SCH (18:00)
--- NOTE | 2017-04-07 18:30 | NUR ---
PT RESTING WITH EYES CLOSED, AROUSES TO VOICE, STATES HE'S NOT HUNGRY, TOOK ICE CREAM ONLY OFF OF DINNER TRAY. PT DENIES NAUSEA, DENIES PAIN, PT REMAINS ON SAMPLE DISPLAY PREPARER, SUPRAPUBIC CATH IN PLACE, DRAINING WELL, PT APEARS COMFORTABLE, WILL CONTINUE TO MONITOR.
--- NOTE | 2017-04-07 19:13 | NUR ---
REPORT GIVEN TO SUPERVISOR LEAD BURNING NURSE, PT IN STABLE CONDITION.
--- NOTE | 2017-04-07 19:15 | NUR ---
RECEIVED REPORT FROM DAY RN FOR CONTINUITY OF CARE. PATIENT IS DROWSY BUT EASILY AWAKENS. SHIFT ASSESSMENT DONE,VS TAKEN, STABLE AT THIS TIME. NO S/S OF RESPIRATORY DISTRESS OR DISCOMFORT NOTED ON ROOM AIR, O2 SAT 95%. FLACC-0. RT AC IV PATENT AND INFUSING FLUIDS WELL. PATIENT HAS AV SHUNT TO LT UPPER ARM, RESTRICTED EXTREMITY WRISTBAND IN PLACE. SUPRAPUBIC CATHETER IN PLACE DRAINING CLEAR YELLOW URINE. PATIENT ON WOUND CARE BED WITH BILATERAL HEEL BOOTS IN PLACE, DRESSING TO RT HEEL AND LT HAND DRY AND INTACT. PATIENT HAS OLD HEALED SACRAL WOUND. SAFETY/FALL/CONTACT PRECAUTIONS ENFORCED. WILL CONTINUE TO MONITOR CLOSELY.
[2017-04-07 20:00] VITALS: BP 140/63
[2017-04-07] MEDS: ATORVASTATIN 20 MG TAB PO SCH (20:22)
--- NOTE | 2017-04-07 20:22 | NUR ---
DUE MEDICATIONS ADMINISTERED, TOLERATED WELL. TURNED AND REPOSITIONED PATIENT. WILL CONTINUE TO MONITOR.
[2017-04-07] MEDS: INSULIN DETEMIR 100 UNITS/ML 10 ML VIAL SUBQ SCH (20:32)
--- NOTE | 2017-04-07 20:55 | NUR ---
DR. BAIRD CALLED INQUIRING ABOUT PATIENT DIALYSIS ACCESS, INFORMED HIM OF LT UPPER ARM FISTULA. NO NEW ORDERS RECEIVED.
--- NOTE | 2017-04-07 23:35 | NUR ---
VITAL SIGNS STABLE AT THIS TIME. TURNED AND REPOSITIONED PATIENT, TOLERATED WELL. SUPRAPUBIC CATH DRAINING YELLOW URINE TO GRAVITY. IV PATENT AND FLUSHED. WILL CONTINUE TO MONITOR.
[2017-04-08] VITALS: BP 142/69
[2017-04-08] MEDS ORDERED: VANCOMYCIN 1,000 MG VIAL ONE (01:07)
--- NOTE | 2017-04-08 02:09 | NUR ---
PATIENT TURNED AND REPOSITIONED. IV TO RT AC PATENT. NO S/S OF DISTRESS NOTED ON ROOM AIR. WILL CONTINUE TO MONITOR.
[2017-04-08 04:00] VITALS: BP 138/65
--- NOTE | 2017-04-08 04:10 | NUR ---
VITAL SIGNS STABLE, TURNED AND REPOSITIONED PATIENT AND PROVIDED WOUND DRESSING CHANGE. WILL CONTINUE TO MONITOR.
[2017-04-08] MEDS: DEXTROSE 5% 500 ML IV SCH ×2 (04:57→16:35)
[2017-04-08] MEDS: LEVOTHYROXINE 0.1 MG TAB PO SCH (06:26)
[2017-04-08] MEDS: BLOOD GLUCOSE MONITORING 1 DEV DEV FS SCH ×4 (06:27→20:37)
[2017-04-08] MEDS: PANTOPRAZOLE 40 MG TABEC PO SCH ×2 (06:27→17:16)
--- NOTE | 2017-04-08 06:27 | NUR ---
DUE MEDICATIONS ADMINISTERED, TOLERATED WELL. BLOOD SUGAR TAKEN INITIALLY 40, PT ASYMPTOMATIC, GAVE PT 2 JUICES, NOW BLOOD SUGAR TAKEN AND 80. WILL CONTINUE TO MONITOR.
[2017-04-08 06:35] LABS: BASOPHILS # (AUTO) 0.1 K/uL (0.00-0.22); BASOPHILS % (AUTO) 1.7 % (0.0-2.0); EOSINOPHILS # (AUTO) 0.7 K/uL (0-0.4); EOSINOPHILS % (AUTO) 7.9 % (0.0-4.0); HEMATOCRIT 35.3 % (36-52); HEMOGLOBIN 11.6 g/dL (12.0-18.0); LYMPHOCYTES # (AUTO) 1.8 K/uL (2.0-11.5); LYMPHOCYTES % (AUTO) 21.5 % (20.5-51.1); MEAN CORPUSCULAR HEMOGLOBIN 32 pg (27-31); MEAN CORPUSCULAR HGB CONC 33 g/dL (33-37); MEAN CORPUSCULAR VOLUME 98 fL (80-94); MONOCYTES # (AUTO) 1.2 K/uL (0.8-1.0); MONOCYTES % (AUTO) 14.2 % (1.7-9.3); NEUTROPHILS # (AUTO) 4.7 K/uL (1.8-7.7); NEUTROPHILS % (AUTO) 54.7 % (42.2-75.2); PLATELET COUNT (AUTO) 247 K/uL (140-450); RED BLOOD CELL COUNT(AUTO) 3.58 MIL/uL (4.20-6.10); RED CELL DISTRIBUTION WIDTH 13.8 % (11.6-13.7); WHITE BLOOD COUNT (AUTO) 8.5 K/uL (4.8-10.8)
[2017-04-08 07:05] LABS: ANION GAP 16.7 (8-16); CALCIUM 8.5 mg/dL (8.5-10.1); CARBON DIOXIDE 26.4 mmol/L (21-32); CHLORIDE 105 mmol/L (98-107); POTASSIUM 3.1 mmol/L (3.5-5.1); SODIUM SERUM 145 mmol/L (136-145); UREA NITROGEN, BLOOD 56 mg/dL (7-18)
[2017-04-08 07:08] LABS: CREATININE 4.7 mg/dL (0.6-1.3); GLUCOSE 45 mg/dL (74-106)
--- NOTE | 2017-04-08 07:31 | NUR ---
ENDORSED PATIENT TO DAY RN FOR CONTINUITY OF CARE, PATIENT IS IN STABLE CONDITION.
--- NOTE | 2017-04-08 07:35 | NUR ---
Received patient from night rn at bedside, patient awake and alert, no signs of distress, denies any pain.
--- NOTE | 2017-04-08 07:39 | NUR ---
PAGED DR. JOVEL REGARDING CR 4.7, AWAITING CALL BACK.
--- NOTE | 2017-04-08 07:43 | NUR ---
SPOKE TO DR. JOVEL, PER HOLD OFF ON DIALYSIS UNTIL SATURDAY AND CONTINUE TO ADMINISTER SCHEDULES POTASSIUM SUPPLEMENT.
[2017-04-08 08:00] VITALS: BP 146/69
[2017-04-08] MEDS: POTASSIUM CHLORIDE 10 MEQ TABER PO SCH ×2 (08:51→17:16)
[2017-04-08] MEDS: ASCORBIC ACID 500 MG TAB PO SCH (08:51)
[2017-04-08] MEDS: amLODIPine 5 MG TAB PO SCH (08:51)
[2017-04-08] MEDS: ZINC SULF 220 MG CAP PO SCH (08:52)
[2017-04-08] MEDS: traMADol 50 MG TAB PO SCH ×2 (08:52→20:06)
[2017-04-08] MEDS: cloNIDine 0.1 MG TAB PO SCH ×2 (08:52→20:05)
[2017-04-08] MEDS: VIT-B COMP/VIT-C/FOLIC ACID 1 TAB PO SCH (08:53)
[2017-04-08] MEDS: MEROPENEM 500 MG in NACL 0.9% 50 ML IV SCH ×2 (08:53→20:06)
[2017-04-08] MEDS: SIMETHICONE 80 MG TAB.CHEW PO SCH ×3 (08:53→17:17)
[2017-04-08] MEDS: FLUTICASONE NASAL 50 MCG/ACTUATION 16 GM BTL NS SCH ×2 (08:54→20:11)
[2017-04-08] MEDS: ALBUTEROL 0.083% 2.5 MG/3 ML NEBU INH PRN ×2 (10:00→14:33)
--- NOTE | 2017-04-08 10:00 | NUR ---
ASSESSMENT DONE PATIENT PRESENTING WITH INCREASED SOB EDEMA CXR DATED 04/06/2017 REVIEWED HHN PRN THERAPY GIVEN AT THIS TIME
--- NOTE | 2017-04-08 10:31 | NUR ---
PATIENT HAS BEEN SCREENED AND CATEGORIZED HIGH NUTRITION RISK. PATIENT WILL BE SEEN WITHIN 1-2 DAYS OF ADMISSION. 04/07/17-04/08/[address]
[2017-04-08 12:00] VITALS: BP 130/69
[2017-04-08] MEDS ORDERED: POTASSIUM CHLORIDE 10 MEQ TABER PO SCH (12:00)
--- NOTE | 2017-04-08 12:30 | NUR ---
Patient refusing to eat lunch and states he ate good breakfast which he did (ate 100%). Also per at bedside patient routine, he will eat good breakfast and dinner but mostly don't like to eat lunch.
[2017-04-08 15:36] VITALS: BP 115/75
--- NOTE | 2017-04-08 15:36 | NUR ---
Patient too sleepy but arousable VS stable, BS 94.
--- NOTE | 2017-04-08 15:41 | NUR ---
04/08/17 RD INITIAL ASSESSMENT COMPLETED PLEASE REFER TO NUTRITION ASSESSMENT UNDER CARE ACTIVITY FOR ESTIMATED NUTRITIONAL NEEDS. 1. CONTINUE 60 G CONSISTENT CARBOHYDRATE, CARDIAC DIET 2. RECOMMEND D/C VITAMIN C SUPPLEMENT DUE TO RISK OF RENAL STONES 3. RECOMMEND FOLIC ACID AND VITAMIN B12 SUPPLEMENT 1/X DAILY 4. RD TO FOLLOW-UP 2-3 DAYS; HIGH RISK DICK TAPIA, RD
--- NOTE | 2017-04-08 18:23 | NUR ---
Patient now more awake and ate 75% of his dinner.
--- NOTE | 2017-04-08 19:22 | NUR ---
Endorsed plan of care to oil field roustabout, RN
[2017-04-08 20:00] VITALS: BP 129/63
[2017-04-08] MEDS: ATORVASTATIN 20 MG TAB PO SCH (20:06)
[2017-04-08] MEDS: INSULIN DETEMIR 100 UNITS/ML 10 ML VIAL SUBQ SCH (20:13)
--- NOTE | 2017-04-08 20:15 | NUR ---
BLOOD SUGAR CHECKED WITH 145 RESULT, PT DOESN'T WANT ANY BEDTIME SNACK AT THIS TIME, HOLD DUE LEVIMIR SEC TO EPISODE OF HYPOGLYCEMIA EARLIER, PO AND IV ANTIBIOTIC GIVEN, REPOSITION Q2H AND OFFLOAD PRESSURE AREAS, ALL NEEDS ATTENDED.
--- NOTE | 2017-04-08 20:52 | NUR ---
[facility] CALLED AND TALKED TO LEVON TO SCHEDULE PT FOR HEMODIALYSIS TOMORROW AT 04/09/17 0800, INFORMATION PROVIDED.
[2017-04-08] MEDS ORDERED: diphenhydrAMINE 50 MG CAP PO PRN (21:45)
[2017-04-08] MEDS: LORazepam 1 MG TAB PO PRN (22:48)
--- NOTE | 2017-04-08 22:50 | NUR ---
PT OCCASIONALLY YELLS, CONFUSED, HE THINKS HE IS IN A [place]OT[place], ORIENTED TO ROOM AND TIME, RESTLESS AT TIMES, MEDICATED PRN WITH ATIVAN PO, SIDE RAILS UP AND BED ALARM ON, MONITORED CLOSELY.
[2017-04-09] VITALS: BP 130/65
[2017-04-09] MEDS: DEXTROSE 5% 500 ML IV SCH ×2 (02:35→12:35)
--- NOTE | 2017-04-09 02:50 | NUR ---
PT AWAKE AND YELLING, CONFUSED THINKING HE IS IN [facility], ORIENTED TO ROOM AND TIME, WENT BACK TO SLEEP, MONITORED CLOSELY.
[2017-04-09 04:00] VITALS: BP 130/75
--- NOTE | 2017-04-09 04:00 | NUR ---
PT SLEEPING, EASILY AROUSABLE, VITAL SIGNS STABLE, NO SIGNS OF DISTRESS, MONITORED CLOSELY.
[2017-04-09 06:30] LABS: BASOPHILS # (AUTO) 0.1 K/uL (0.00-0.22); BASOPHILS % (AUTO) 1.3 % (0.0-2.0); EOSINOPHILS # (AUTO) 0.7 K/uL (0-0.4); EOSINOPHILS % (AUTO) 8.5 % (0.0-4.0); HEMATOCRIT 33.1 % (36-52); HEMOGLOBIN 10.9 g/dL (12.0-18.0); LYMPHOCYTES # (AUTO) 1.9 K/uL (2.0-11.5); LYMPHOCYTES % (AUTO) 23.5 % (20.5-51.1); MEAN CORPUSCULAR HEMOGLOBIN 32 pg (27-31); MEAN CORPUSCULAR HGB CONC 33 g/dL (33-37); MEAN CORPUSCULAR VOLUME 98 fL (80-94); MONOCYTES # (AUTO) 0.8 K/uL (0.8-1.0); NEUTROPHILS # (AUTO) 4.4 K/uL (1.8-7.7); NEUTROPHILS % (AUTO) 56.7 % (42.2-75.2); PLATELET COUNT (AUTO) 228 K/uL (140-450); RED BLOOD CELL COUNT(AUTO) 3.38 MIL/uL (4.20-6.10); RED CELL DISTRIBUTION WIDTH 14.1 % (11.6-13.7); WHITE BLOOD COUNT (AUTO) 7.9 K/uL (4.8-10.8)
[2017-04-09] MEDS: PANTOPRAZOLE 40 MG TABEC PO SCH ×2 (06:31→16:52)
[2017-04-09] MEDS: LEVOTHYROXINE 0.1 MG TAB PO SCH (06:31)
[2017-04-09] MEDS: BLOOD GLUCOSE MONITORING 1 DEV DEV FS SCH ×4 (06:36→20:50)
[2017-04-09] MEDS: INSULIN LISPRO SLIDING SCALE 100 UNITS/ML VIAL SUBQ PRN ×2 (06:36→17:02)
--- NOTE | 2017-04-09 06:40 | NUR ---
PT SLEEPING, DROWSY BUT EASILY AROUSABLE, BLOOD SUGAR CHECKED WITH 165 RESULT, RISS COVERAGE GIVEN, DUE PO MEDICATION TAKEN, TOLERATED WELL, DRESSING TO RT HEEL DRY AND INTACT, SUPRAPUBIC CATHETER DRAINING WELL, FOR HEMODIALYSIS TODAY, MONITORED CLOSELY.
--- NOTE | 2017-04-09 07:10 | NUR ---
RECEIVED REPORT FROM NIGHT NURSE. PT IS AAOX1 TO SELF, ON ROOM AIR, LEFT UPPER ARM AV SHUNT, IV TO RIGHT AC 20G SALINE LOCK, SUPRAPUBIC CATHETER DRAINING DARK YELLOW URINE. RIGHT HEEL WOUND, LEFT HAND SKIN TEAR , SACRAL SCAR. INITIAL ASSESSMENT COMPLETED, REVIEW PLAN OF CARE WITH PT, REINFORCEMENT NEEDED, ALL SAFETY PRECAUTIONS MET. CALL LIGHT WITHIN REACH. WILL CONTINUE TO MONITOR.
[2017-04-09 07:14] LABS: PHOSPHORUS 6.5 mg/dL (2.5-4.9)
[2017-04-09 07:15] LABS: GLUCOSE 153 mg/dL (74-106)
[2017-04-09 07:23] LABS: ANION GAP 17.4 (8-16); CARBON DIOXIDE 23.8 mmol/L (21-32); CHLORIDE 104 mmol/L (98-107); POTASSIUM 4.2 mmol/L (3.5-5.1); SODIUM SERUM 141 mmol/L (136-145)
[2017-04-09 07:24] LABS: CREATININE 5.3 mg/dL (0.6-1.3); UREA NITROGEN, BLOOD 64 mg/dL (7-18)
[2017-04-09 08:00] VITALS: BP 133/68
[2017-04-09] MEDS: amLODIPine 5 MG TAB PO SCH (09:00)
[2017-04-09] MEDS: cloNIDine 0.1 MG TAB PO SCH ×2 (09:00→20:47)
[2017-04-09] MEDS: SIMETHICONE 80 MG TAB.CHEW PO SCH ×3 (09:07→16:52)
[2017-04-09] MEDS: MEROPENEM 500 MG in NACL 0.9% 50 ML IV SCH ×2 (09:08→20:46)
[2017-04-09] MEDS: ASCORBIC ACID 500 MG TAB PO SCH (09:09)
[2017-04-09] MEDS: POTASSIUM CHLORIDE 10 MEQ TABER PO SCH ×2 (09:09→16:53)
[2017-04-09] MEDS: traMADol 50 MG TAB PO SCH ×2 (09:09→20:47)
[2017-04-09] MEDS: ZINC SULF 220 MG CAP PO SCH (09:10)
[2017-04-09] MEDS: VIT-B COMP/VIT-C/FOLIC ACID 1 TAB PO SCH (09:11)
[2017-04-09] MEDS: FLUTICASONE NASAL 50 MCG/ACTUATION 16 GM BTL NS SCH ×2 (09:12→20:50)
--- NOTE | 2017-04-09 09:15 | NUR ---
DUE MEDICATIONS GIVEN , BP MEDICATIONS NOT GIVEN PT CURRENTLY GETTING HEMODIALYSIS. ALL NEEDS MET. WILL CONTINUE MONITOR.
--- NOTE | 2017-04-09 11:30 | NUR ---
CHECKED IN ON PT. HD NURSE IN ROOM WITH PT. ALL NEEDS MET. WILL CONTINUE TO MONITOR.
[2017-04-09 12:00] VITALS: BP 123/68
--- NOTE | 2017-04-09 12:42 | NUR ---
DUE MEDICATIONS GIVEN. AT BEDSIDE. ALL NEEDS MET. WILL CONTINUE TO MONITOR.
--- NOTE | 2017-04-09 14:25 | NUR ---
CHECKED IN ON PT, AT BEDSIDE. NO S/S OF DISTRESS OR DISCOMFORT NOTED. ALL NEEDS MET.
[2017-04-09 16:00] VITALS: BP 138/68
--- NOTE | 2017-04-09 16:41 | NUR ---
DUE MEDICATIONS GIVEN. PT TOLERATED WELL. ALL NEEDS MET. WILL CONTINUE TO MONITOR.
--- NOTE | 2017-04-09 19:05 | NUR ---
ENDORSED PLAN OF CARE TO NIGHT NURSE, PT IN STABLE CONDITION
[2017-04-09 20:00] VITALS: BP 132/63
--- NOTE | 2017-04-09 20:45 | NUR ---
BLOOD SUGAR CHECKED WITH 49 RESULT, PT AWAKE, VERBALLY RESPONSIVE, D50 1 AMP GIVEN IVP, WILL RECHECKED BLOOD SUGAR, DUE IV ANTIBIOTIC AND PO MEDICATION TAKEN, REPOSITION Q2H AND OFFLOAD PRESSURE AREAS, ALL NEEDS ATTENDED.
[2017-04-09] MEDS: ATORVASTATIN 20 MG TAB PO SCH (20:47)
[2017-04-09] MEDS: INSULIN DETEMIR 100 UNITS/ML 10 ML VIAL SUBQ SCH (20:51)
--- NOTE | 2017-04-09 21:20 | NUR ---
BLOOD SUGAR RECHECKED WITH 127 RESULT, MONITORED CLOSELY.
[2017-04-09] MEDS: LORazepam 1 MG TAB PO PRN (22:14)
--- NOTE | 2017-04-09 22:16 | NUR ---
PT YELLING AND CONFUSED, SAID HE SAW A HORSE IN THE ROOM, REORIENTED TO ROOM AND TIME, MEDICATED PRN WITH ATIVAN PO, APPLE JUICE PROVIDED, TOLERATED WELL, MONITORED CLOSELY.
[2017-04-10] VITALS: BP 138/70
--- NOTE | 2017-04-10 | NUR ---
PT SLEEPING, EASILY AROUSABLE, VITAL SIGNS STABLE, NO SIGNS OF PAIN, CONTINUE TO MONITOR CLOSELY.
[2017-04-10 04:00] VITALS: BP 132/70
--- NOTE | 2017-04-10 04:00 | NUR ---
PT SLEEPING, EASILY AROUSABLE, VITAL SIGNS STABLE, DENIES ANY PAIN, DRESSING TO RT HEEL DRY AND INTACT, ISABELLE HEEL PROTECTOR IN PLACE, MONITORED CLOSELY.
--- NOTE | 2017-04-10 05:50 | NUR ---
AM LABS DRAWN, BLOOD SUGAR CHECKED WITH 109 RESULT.
[2017-04-10] MEDS: LEVOTHYROXINE 0.1 MG TAB PO SCH (06:29)
[2017-04-10] MEDS: PANTOPRAZOLE 40 MG TABEC PO SCH ×3 (06:31→16:50)
[2017-04-10] MEDS: BLOOD GLUCOSE MONITORING 1 DEV DEV FS SCH ×3 (06:32→16:41)
--- NOTE | 2017-04-10 07:10 | NUR ---
PT AWAKE, NO SIGNS OF DISTRESS, REPORT GIVEN TO COSME CHURCH FOR CONTINUITY OF CARE.
--- NOTE | 2017-04-10 07:15 | NUR ---
RECEIVED PATIENT REPORT AT BEDSIDE. PATIENT AWAKE BUT CONFUSED. NO S/S OF DISTRESS NOTED. PATIENT ON ROM AIR. NO SOB. LEFT UPPER ARM AV SHUNT NOTED. IV LINE TO THE RIGHT AC INTACT AND ASYMPTOMATIC. SUPRAPUBIC CATHETER IN PLACE, DRAINING CLEAR YELLOW URINE. PATIENT ON TELE MONITORING. BED LOWERED WITH CALL LIGHT WITHIN REACH. WILL CONTINUE TO MONITOR
[2017-04-10 08:00] VITALS: BP 153/72
[2017-04-10] MEDS: MEROPENEM 500 MG in NACL 0.9% 50 ML IV SCH (08:14)
[2017-04-10] MEDS: cloNIDine 0.1 MG TAB PO SCH (08:14)
[2017-04-10] MEDS: traMADol 50 MG TAB PO SCH (08:15)
[2017-04-10] MEDS: amLODIPine 5 MG TAB PO SCH (08:15)
[2017-04-10] MEDS: ZINC SULF 220 MG CAP PO SCH (08:15)
[2017-04-10] MEDS: POTASSIUM CHLORIDE 10 MEQ TABER PO SCH ×3 (08:15→17:00)
[2017-04-10] MEDS: VIT-B COMP/VIT-C/FOLIC ACID 1 TAB PO SCH (08:15)
[2017-04-10] MEDS: ASCORBIC ACID 500 MG TAB PO SCH (08:16)
[2017-04-10] MEDS: SIMETHICONE 80 MG TAB.CHEW PO SCH ×4 (08:16→17:00)
[2017-04-10] MEDS: FLUTICASONE NASAL 50 MCG/ACTUATION 16 GM BTL NS SCH (08:17)
[2017-04-10] MEDS ORDERED: DARBEPOETIN ALFA SCH (09:00)
[2017-04-10] MEDS ORDERED: [UNRECOGNIZED DRUG - OTHER] SCH (09:00)
--- NOTE | 2017-04-10 09:03 | NUR ---
Social Service Note: I called and spoke with patient's Annie Man . Annie Maldivian speaking. Per Annie, she would like patient to return to [facility] ([facility]) upon discharge. I faxed patient's medical information to [facility].
[2017-04-10] MEDS: LORazepam 2 MG/ML VIAL IVP PRN (10:02)
--- NOTE | 2017-04-10 11:50 | NUR ---
PATIENT SEEN BY DR FRAGOSO
[2017-04-10 12:00] VITALS: BP 118/81
--- NOTE | 2017-04-10 12:14 | NUR ---
ROB LEE A VOICE MESSAGE REGARDING HEMODIALYSIS ORDERED FOR THE PATIENT TOMORROW. WAITING FOR CALL BACK FOR CONFIRMATION
--- NOTE | 2017-04-10 12:17 | NUR ---
RECEIVED CALL FOR HEMODIALYSIS CONFIRMATION FROM LEVON LEE
--- NOTE | 2017-04-10 14:12 | NUR ---
Social Service Note: Per Jami from [facility] , patient may return to room 125b upon discharge, renal case manager Roopa borges. Addendum: 04/10/17 at 1417 by Jeanine Castro SS Per Jami from [facility] , patient may be transfer to their facility any time today, accepting physician is , renal case manager Roopa borges.
--- NOTE | 2017-04-10 14:53 | NUR ---
CM NOTE SPOKE WITH ATTENDING DR. Jesus SOTO AND HE SAID THE PATIENT IS STABLE TO BE DISCHARGED TO [facility] ([facility]) TODAY. SPOKE WITH JADA OF [facility] PH# [phone] TO SET UP PATIENT TRANSPORT RECORDS COORDINATOR TIME [address] [facility] RM 125 B, NUMBER TO CALL FOR REPORT [phone]. CHARGE NURSE CHIO AND NURSE LYNNETTE PAPPAS.
--- NOTE | 2017-04-10 15:15 | NUR ---
Social Service Note: I called and spoke with patient's Annie Man . Annie Northern Irish speaking. I informed her patient will be picked up at 5pm and transfer to [facility] today. She verbalized understanding.
[2017-04-10] MEDS ORDERED: QUET25TA46 PO (15:41)
[2017-04-10] MEDS ORDERED: BEN50 PO (15:41)
[2017-04-10] MEDS ORDERED: DONE10TA3 PO (15:41)
[2017-04-10] MEDS ORDERED: LINE600T PO (15:41)
[2017-04-10 16:00] VITALS: BP 132/54
--- NOTE | 2017-04-10 16:33 | NUR ---
PATIENT REPORT GIVEN TO UVALDO ORTIZ
--- NOTE | 2017-04-10 17:15 | NUR ---
PATIENT PICKED UP BY [facility] TO BE TRANSFERRED TO [facility]. IV LINE DISCONTINUED. TELE LEADS TAKEN OFF. SUPRAPUBIC CATHETER LEFT IN PLACE. PATIENT LEFT WITH ALL HIS DISCHARGE PAPERS AND BELONGINGS. WOUND PICTURES TAKEN AND FILED IN THE CHART. PATIENT LEFT IN STABLE CONDITION
[2017-04-10] MEDS ORDERED: QUEtiapine FUMARATE 25 MG TAB PO SCH (21:00)
[2017-04-10] MEDS ORDERED: DONEPEZIL 10 MG TAB PO SCH (21:00)
== END 2017-04-10 17:15 | DRG 871 ==
LOC: MED 11:14 → MTU 14:31
PROVIDERS: ADMIT Preventive Medicine Preventive Medicine/Occupational Environmental Medicine; ATTEND Preventive Medicine Preventive Medicine/Occupational Environmental Medicine
PROC: 5A1D00Z (ICD-10-PCS; principal; 2017-04-09)
DX: A41.9 Sepsis, unspecified organism (principal); N18.6 End stage renal disease; E87.1 Hypo-osmolality and hyponatremia; F05 Delirium due to known physiological condition; L97.419 Non-pressure chronic ulcer of right heel and midfoot with unspecified severity; N39.0 Urinary tract infection, site not specified; M86.8X8 Other osteomyelitis, other site; I13.11 Hypertensive heart and chronic kidney disease without heart failure, with stage 5 chronic kidney disease, or end stage renal disease; J44.9 Chronic obstructive pulmonary disease, unspecified; I25.10 Atherosclerotic heart disease of native coronary artery without angina pectoris; K21.9 Gastro-esophageal reflux disease without esophagitis; E78.5 Hyperlipidemia, unspecified; E11.69 Type 2 diabetes mellitus with other specified complication; D63.8 Anemia in other chronic diseases classified elsewhere; E03.9 Hypothyroidism, unspecified; F03.90 Unspecified dementia, unspecified severity, without behavioral disturbance, psychotic disturbance, mood disturbance, and anxiety; E87.6 Hypokalemia; L89.159 Pressure ulcer of sacral region, unspecified stage; F32.9 Major depressive disorder, single episode, unspecified; E11.22 Type 2 diabetes mellitus with diabetic chronic kidney disease; E11.621 Type 2 diabetes mellitus with foot ulcer; Z86.14 Personal history of Methicillin resistant Staphylococcus aureus infection; Z87.01 Personal history of pneumonia (recurrent); Z86.73 Personal history of transient ischemic attack (TIA), and cerebral infarction without residual deficits; Z99.2 Dependence on renal dialysis; Z88.6 Allergy status to analgesic agent; Z88.5 Allergy status to narcotic agent; Z90.49 Acquired absence of other specified parts of digestive tract; Z88.8 Allergy status to other drugs, medicaments and biological substances; Z79.899 Other long term (current) drug therapy; Z93.50 Unspecified cystostomy status; Z28.89 Immunization not carried out for other reason
CPT/HCPCS: 36415; 70450; 71010; 80048; 80053; 80076; 80202; 80305; 81001; 82140; 82948; 83605; 83735; 84100; 85025; 85610; 85651; 85730; 86140; 87040; 87081; 87086; 87186; 93005; 94640; 96360; 96361; 99285; G0482; J0696; J1610; J1815; J2060; J2185; J2405; J3370; J3480; J7030; J7060; J7613; Q0092

== ENCOUNTER 2017-04-13 21:42 | Inpatient (IN) | payer OTHER, MEDICARE ==
[~2017-04-13] VITALS: Ht 177.8 cm; Wt 73.9 kg
[~2017-04-13 21:42] MED LIST changes: +BEN50 PO; +BISA-213 RC; +DONE10TA3 PO; +LINE600T PO; +PANT40PK PO; +QUET25TA46 PO; +VITA1TAB44 PO
--- NOTE | 2017-04-13 21:43 | NUR ---
PT [facility] BLS. TAKEN TO BED 6
--- NOTE | 2017-04-13 21:50 | NUR ---
Patient noted to have existing wounds upon arrival to ER. Photos taken of wound and placed in chart. Wound covered with dressing. Physician informed.
--- NOTE | 2017-04-13 21:50 | NUR ---
[facility] FROM [facility]. PT REFUSING TO EAT OR TAKE HIS MEDS TODAY. HE REFUSED DIALYSIS TODAY. PT HAS DIALYSIS SHUNT ON LEFT ARM, BRUIE HEARD. PT ARRIVED WITH HORTON INTACT. URINE CULTURE SENT. NO N/V/D NOTED AT THIS TIME. PT HAS SCRATCHES ON HIS BODY FROM ITCHING HIMSELF. PT HAS OPEN WOUNDS ON HIS LEFT ARM AND HAND, HIS RT FOOT, HIS SACRUM. PICTURES WERE TAKEN. PT IS UNSTEADY AND UNABLE TO WALK ON HIS OWN. LUNGS CLEAR BL; HR EVEN AND REGULAR; PT DOES NOT HAVE FEVER, CP, SOB, OR COUGH AT THIS TIME; PAIN OF 0/10 AT THIS TIME; VSS; PATIENT POSITIONED FOR COMFORT; HOB ELEVATED; BEDRAILS UP X2; BED DOWN. ER MD MADE AWARE OF PT STATUS.
[2017-04-13 21:52] VITALS: BP 155/44
--- NOTE | 2017-04-13 22:05 | NUR ---
Dr. Valentine evaluating patient at bedside.
[2017-04-13] MEDS ORDERED: LINE600T PO (22:08)
[2017-04-13] MEDS ORDERED: DONE10TA3 PO (22:08)
[2017-04-13] MEDS ORDERED: QUET25TA PO (22:08)
[2017-04-13] MEDS ORDERED: NACL 0.9% 1,000 ML IV ONE (22:15)
[2017-04-13 23:19] LABS: BASOPHILS # (AUTO) 0.1 K/uL (0.00-0.22); BASOPHILS % (AUTO) 0.8 % (0.0-2.0); EOSINOPHILS # (AUTO) 0.2 K/uL (0-0.4); EOSINOPHILS % (AUTO) 1.7 % (0.0-4.0); HEMATOCRIT 36.5 % (36-52); LYMPHOCYTES # (AUTO) 1.7 K/uL (2.0-11.5); LYMPHOCYTES % (AUTO) 13.8 % (20.5-51.1); MEAN CORPUSCULAR HEMOGLOBIN 32 pg (27-31); MEAN CORPUSCULAR HGB CONC 33 g/dL (33-37); MEAN CORPUSCULAR VOLUME 98 fL (80-94); MONOCYTES # (AUTO) 0.5 K/uL (0.8-1.0); MONOCYTES % (AUTO) 3.7 % (1.7-9.3); NEUTROPHILS # (AUTO) 10.1 K/uL (1.8-7.7); PLATELET COUNT (AUTO) 254 K/uL (140-450); RED BLOOD CELL COUNT(AUTO) 3.73 MIL/uL (4.20-6.10); RED CELL DISTRIBUTION WIDTH 14.1 % (11.6-13.7); WHITE BLOOD COUNT (AUTO) 12.6 K/uL (4.8-10.8)
[2017-04-13 23:24] LABS: APPEARANCE,URINE HAZY (CLEAR); BILIRUBIN,URINE NEGATIVE (NEGATIVE); BLOOD, URINE 3+ (NEGATIVE); COLOR,URINE YELLOW (YELLOW); LEUKOCYTE ESTERASE ,URINE 3+ (NEGATIVE); NITRITE, URINE NEGATIVE (NEGATIVE); PH,URINE 8.5 (5.0-9.0); PROTEIN,URINE 2+ (NEGATIVE); UGLUCOSE NEGATIVE (NEGATIVE); UROBILINOGEN,URINE 0.2 EU/dL (0.2 - 1)
[2017-04-13] MEDS ORDERED: AMLO10TA PO (23:26)
[2017-04-13] MEDS ORDERED: POTA10TA10 PO (23:26)
[2017-04-13 23:28] LABS: ANION GAP 26.1 (8-16); CALCIUM 8.8 mg/dL (8.5-10.1); CARBON DIOXIDE 22.3 mmol/L (21-32); CHLORIDE 105 mmol/L (98-107); GLUCOSE 62 mg/dL (74-106); POTASSIUM 3.4 mmol/L (3.5-5.1); SODIUM SERUM 150 mmol/L (136-145); UREA NITROGEN, BLOOD 36 mg/dL (7-18)
[2017-04-13 23:32] LABS: CREATININE 4.3 mg/dL (0.7-1.3)
[2017-04-13 23:35] LABS: INR 1.1 (0.8-1.2); PARTIAL THROMBOPLASTIN TIME 28.7 secs (22-35.6); PROTHROMBIN TIME 11.2 secs (10.8-13.4)
[2017-04-13 23:37] LABS: RBC,URINE 3-10 (FEW) /HPF (0-5)
[2017-04-13 23:38] LABS: BACTERIA,URINE 2+ /HPF (None Seen); SQUAMOUS EPITHELIAL CELL,UR 0-3 (FEW) /LPF (0-3 (FEW)); WBC,URINE 80-100 /HPF (0-5)
[2017-04-13 23:39] LABS: YEAST,URINE Few /HPF (None Seen)
[2017-04-13 23:40] LABS: ALANINE AMINOTRANSFERASE 33 U/L (16-63); ALKALINE PHOSPHATASE 102 U/L (46-116); ASPARTATE AMINOTRANSFERASE 45 U/L (15-37); TOTAL BILIRUBIN 0.8 mg/dL (0.0-1.0)
[2017-04-13 23:41] LABS: ALBUMIN 2.8 g/dL (3.4-5.0); TOTAL PROTEIN, SERUM 7.3 g/dL (6.4-8.2)
[2017-04-13] MEDS ORDERED: LEVOFLOXACIN 500 MG/D5W PREMIX 100 ML IV ONE (23:45)
[2017-04-14] MEDS ORDERED: ONDANSETRON 4 MG ODT PO PRN (00:10)
[2017-04-14] MEDS ORDERED: LORazepam 1 MG TAB PO SCH (00:10)
[2017-04-14] MEDS ORDERED: BISACODYL 10 MG SUPP RC PRN ×2 (00:10)
[2017-04-14] MEDS ORDERED: ALBUTEROL 0.083% 2.5 MG/3 ML NEBU INH PRN (00:10)
[2017-04-14] MEDS ORDERED: GLUCAGON 1 MG VIAL SUBQ PRN (00:10)
[2017-04-14] MEDS ORDERED: diphenhydrAMINE 50 MG CAP PO PRN (00:10)
[2017-04-14] MEDS ORDERED: ONDANSETRON 4 MG/2 ML VIAL IVP PRN (00:20)
[2017-04-14] MEDS ORDERED: ACETAMINOPHEN 325 MG TAB PO PRN (00:20)
--- NOTE | 2017-04-14 00:59 | NUR ---
WOUND SWABS X2 SENT TO LAB
[2017-04-14 01:00] VITALS: BP 142/79
--- NOTE | 2017-04-14 01:02 | NUR ---
Patient will be admitted to care of SARAH. Admited to TELE. Will go to room 113. Belongings list completed. Report to
[2017-04-14 01:03] LABS: CREATINE KINASE MB 1.9 ng/mL (0-3.6)
--- NOTE | 2017-04-14 01:15 | NUR ---
ADMITTED A 77 YEAR OLD MALE TO TELE UNIT. PATIENT IS LETHARGIC, HARD TO AROUSE. OPEN EYES WHEN TAPPED HARD ON HIS SHOULDER. DIALYSIS ACCESS NOTED ON LT UPPER ARM, BRUIT AND THRILL. IV ON RT AC, INTACT AND PATENT, INFUSING FLUIDS WELL. HORTON CATHETER DRAINING CLOUDY, YELLOW URINE BY GRAVITY. UPON SKIN ASSESSMENT, SKIN TEARS NOTED ON LT ARM, REDNESS NOTED ON SACRAL AREA, PRESSURE ULCER NOTED ABOVE THE RT HEEL. SCRATCHES SCATTERED OVER THE CHEST AND BACK. CALL LIGHT WITHIN REACH, SAFETY MEASURE ENSURED, WILL CONTINUE TO MONITOR.
[2017-04-14 04:00] VITALS: BP 141/72
--- NOTE | 2017-04-14 04:00 | NUR ---
VITAL SIGNS TAKEN, STABLE, NO S/S OF ACUTE DISTRESS NOTED, RESPIRATION EVEN AND UNLABORED, CALL LIGHT WITHIN REACH, SAFETY MEASURE ENSURED, WILL CONTINUE TO MONITOR.
[2017-04-14] MEDS: BLOOD GLUCOSE MONITORING 1 DEV DEV FS SCH ×4 (07:30→20:23)
[2017-04-14] MEDS: DEXTROSE 50% 50 ML SYR IVP PRN (07:31)
--- NOTE | 2017-04-14 07:35 | NUR ---
BS 56, 1AMP D50 IVP GIVEN ORDERED, WILL ENDORSE DAY RN TO RECHECK BS 15MINS
--- NOTE | 2017-04-14 07:36 | NUR ---
RECEIVED CARE OF PT FROM LIQUOR RUNNER NURSE AT BEDSIDE. PT HAS SKIN TEAR ON LEFT ARM AND ULCER ON R HEEL. REDNESS ON SACRAL AREA. PT HAS BL HEEL PROTECTORS ON. PT IS A&OX1. DROWSY BUT AROUSABLE. CALL LIGHT WITHIN REACH. WILL CONTINUE TO MONITOR.
--- NOTE | 2017-04-14 07:50 | NUR ---
RECHECKED BS 153.
[2017-04-14 08:00] VITALS: BP 143/57
[2017-04-14] MEDS ORDERED: POTASSIUM CHLORIDE 10 MEQ TABER PO SCH (08:00)
--- NOTE | 2017-04-14 08:00 | NUR ---
PT FINISHED BREAKFAST 100%. TOLERATED WELL. CALL LIGHT WITHIN REACH. WILL CONTINUE TO MONITOR.
[2017-04-14] MEDS: PANTOPRAZOLE 40 MG INJ VIAL IVP SCH ×2 (08:38→20:24)
[2017-04-14] MEDS: SIMETHICONE 80 MG TAB.CHEW PO SCH ×3 (08:39→16:57)
[2017-04-14] MEDS: ZINC SULF 220 MG CAP PO SCH (08:39)
[2017-04-14 08:40] LABS: CREATINE KINASE MB 2.3 ng/mL (0-3.6)
[2017-04-14] MEDS: QUEtiapine FUMARATE 25 MG TAB PO SCH ×2 (08:40→20:27)
[2017-04-14] MEDS: VIT-B COMP/VIT-C/FOLIC ACID 1 TAB PO SCH (08:40)
[2017-04-14] MEDS: amLODIPine 5 MG TAB PO SCH (08:40)
[2017-04-14] MEDS: FERROUS SULFATE 325 MG TABEC PO SCH ×2 (08:40→20:27)
[2017-04-14] MEDS: traMADol 50 MG TAB PO SCH ×2 (08:40→20:28)
[2017-04-14] MEDS: ASCORBIC ACID 500 MG TAB PO SCH (08:40)
[2017-04-14] MEDS: LEVOTHYROXINE 0.1 MG TAB PO SCH (08:40)
[2017-04-14] MEDS: cloNIDine 0.1 MG TAB PO SCH ×2 (08:41→20:26)
[2017-04-14] MEDS: CALCIUM CARB/VIT-D 500 MG/200 IU 1 TAB PO SCH ×2 (08:42→20:27)
[2017-04-14] MEDS: LINEZOLID 600 MG TAB PO SCH ×2 (08:42→20:28)
[2017-04-14] MEDS ORDERED: FLUTICASONE NASAL 50 MCG/ACTUATION 16 GM BTL NS SCH (09:00)
[2017-04-14] MEDS ORDERED: NON-FORMULARY ITEM (Amlodipine Besylate (Amlodipine) 10 MG) PO SCH (09:00)
[2017-04-14] MEDS ORDERED: NON-FORMULARY ITEM (Fluticasone/Salmeterol* (Advair 250-50 Diskus*) 1 DSK) IH SCH ×2 (09:00)
[2017-04-14] MEDS ORDERED: NON-FORMULARY ITEM (Pantoprazole Sodium (Protonix) 40 MG) PO SCH (09:00)
[2017-04-14] MEDS ORDERED: VIT-B COMP/VIT-C/FOLIC ACID 1 TAB PO SCH (09:00)
[2017-04-14] MEDS ORDERED: MEROPENEM 500 MG VIAL IV SCH (09:00)
[2017-04-14] MEDS ORDERED: LINEZOLID 600 MG TAB PO SCH (09:00)
[2017-04-14] MEDS ORDERED: QUEtiapine FUMARATE 25 MG TAB PO SCH (09:00)
--- NOTE | 2017-04-14 09:15 | NUR ---
PATIENT HAS BEEN SCREENED AND CATEGORIZED HIGH NUTRITION RISK. PATIENT WILL BE SEEN WITHIN 1-2 DAYS OF ADMISSION. 04/14/17-04/15/[address]
[2017-04-14] MEDS: POTASSIUM CHLORIDE 10 MEQ TABER PO SCH ×2 (09:47→20:27)
[2017-04-14] MEDS: MEROPENEM 500 MG in NACL 0.9% 50 ML IV SCH ×2 (09:48→20:24)
[2017-04-14] MEDS ORDERED: POTASSIUM CHLORIDE 10 MEQ TABER PO ONE (09:49)
--- NOTE | 2017-04-14 10:00 | NUR ---
REINSERTED NEW IV ON PT'S R FOREARM 22 G. PT TOLERATED WELL. CALL LIGHT WITHIN REACH. WILL CONTINUE TO MONITOR.
[2017-04-14 10:11] LABS: ANION GAP 21.3 (8-16); CALCIUM 8.3 mg/dL (8.5-10.1); CARBON DIOXIDE 23.9 mmol/L (21-32); CHLORIDE 107 mmol/L (98-107); GLUCOSE 66 mg/dL (74-106); POTASSIUM 3.2 mmol/L (3.5-5.1); SODIUM SERUM 149 mmol/L (136-145); UREA NITROGEN, BLOOD 39 mg/dL (7-18)
[2017-04-14 10:30] LABS: CREATININE 4.5 mg/dL (0.7-1.3)
[2017-04-14 12:00] VITALS: BP 120/63
--- NOTE | 2017-04-14 12:00 | NUR ---
PT REFUSED LUNCH. NO DISTRESS NOTED. CALL LIGHT WITHIN REACH. WILL CONTINUE TO MONITOR.
--- NOTE | 2017-04-14 14:00 | NUR ---
PT IS SLEEPING IN BED. NO DISTRESS NOTED. CALL LIGHT WITHIN REACH. WILL CONTINUE TO MONITOR.
[2017-04-14 16:00] VITALS: BP 95/48
[2017-04-14 16:15] LABS: CREATINE KINASE MB 1.5 ng/mL (0-3.6)
--- NOTE | 2017-04-14 16:17 | NUR ---
04/14/17 RD INITIAL ASSESSMENT COMPLETED PLEASE REFER TO NUTRITION ASSESSMENT UNDER CARE ACTIVITY FOR ESTIMATED NUTRITIONAL NEEDS. RD RECOMMENDATIONS: 1. RECOMMEND CHANGING PT DIET TO RENAL + 60 GM CCHO D/T PT PMH OF DM AND ESRD ON HD. --NOTE PT ALSO WITH ELEVATED BUN AND CREATININE LEVELS. 2. RD WILL F/U 3-5 DAYS; MODERATE RISK. BROCK VALDEZ, RD
--- NOTE | 2017-04-14 16:30 | NUR ---
VS WNL. CALL LIGHT WITHIN REACH. WILL CONTINUE TO MONITOR.
--- NOTE | 2017-04-14 18:00 | NUR ---
PT REFUSED DINNER. NO DISTRESS NOTED. PT WENT BACK TO SLEEP. CALL LIGHT WITHIN REACH. WILL CONTINUE TO MONITOR.
--- NOTE | 2017-04-14 19:15 | NUR ---
ENDORSED CARE OF PT TO BEACH ATTENDANT NURSE AT BEDSIDE. CALL LIGHT WITHIN REACH. PT IN STABLE CONDITION.
--- NOTE | 2017-04-14 19:20 | NUR ---
RECEIVED REPORTS FROM DAY RN. PATIENT IS LETHARGIC, HARD TO AROUSE. OPEN EYES WHEN TAPPED HARD ON HIS SHOULDER. DIALYSIS ACCESS NOTED ON LT UPPER ARM, BRUIT AND THRILL. IV INTACT AND PATENT, INFUSING NORMAL SALINE 100ML/HR. SUPRAPUBIC CATHETER DRAINING CLOUDY, YELLOW URINE BY GRAVITY. UPON SKIN ASSESSMENT, SKIN TEARS NOTED ON LT ARM, REDNESS NOTED ON SACRAL AREA, PRESSURE ULCER NOTED ABOVE THE RT HEEL. SCRATCHES SCATTERED OVER THE CHEST AND BACK. CALL LIGHT WITHIN REACH, SAFETY MEASURE ENSURED, WILL CONTINUE TO MONITOR.
[2017-04-14 20:00] VITALS: BP 123/59
[2017-04-14] MEDS: ATORVASTATIN 20 MG TAB PO SCH (20:27)
[2017-04-14] MEDS: FLUTICASONE NASAL 50 MCG/ACTUATION 16 GM BTL NS SCH (20:58)
[2017-04-14] MEDS ORDERED: INSULIN DETEMIR 100 UNITS/ML 10 ML VIAL SUBQ SCH (21:00)
[2017-04-14] MEDS ORDERED: DONEPEZIL 10 MG TAB PO SCH (21:00)
[2017-04-14] MEDS: DONEPEZIL 10 MG TAB PO SCH (21:00)
--- NOTE | 2017-04-14 22:30 | NUR ---
PATIENT ASLEEP IN BED, RESPIRATION EVEN AND UNLABORED. NO S/S OF ACUTE DISTRESS NOTED, CALL LIGHT WITHIN REACH, SAFETY MEASURE ENSURED. WILL CONTINUE TO MONITOR.
[2017-04-14] MEDS ORDERED: VANCOMYCIN PER PHARMACY MC PRN (23:55)
[2017-04-15] VITALS: BP 105/58
--- NOTE | 2017-04-15 00:35 | NUR ---
PATIENT ASLEEP IN BED, VITAL SIGNS TAKEN, STABLE. NO S/S OF ACUTE DISTRESS NOTED, CALL LIGHT WITHIN REACH, SAFETY MEASURE ENSURED, WILL CONTINUE TO MONITOR.
[2017-04-15] MEDS ORDERED: VANCOMYCIN 1GM/DEXT 5% PREMIX 200 ML IV ONE (01:00)
[2017-04-15] MEDS ORDERED: VANCOMYCIN 1,000 MG VIAL ONE (01:05)
[2017-04-15 04:00] VITALS: BP 111/65
--- NOTE | 2017-04-15 04:10 | NUR ---
PATIENT ASLEEP IN BED, VITAL SIGNS TAKEN, STABLE. NO S/S OF ACUTE DISTRESS NOTED, RESPIRATION EVEN AND UNLABORED. EASY TO AROUSE. WILL CONTINUE TO MONITOR.
[2017-04-15 06:02] LABS: BASOPHILS # (AUTO) 0.1 K/uL (0.00-0.22); BASOPHILS % (AUTO) 0.8 % (0.0-2.0); EOSINOPHILS # (AUTO) 0.5 K/uL (0-0.4); HEMOGLOBIN 10.1 g/dL (12.0-18.0); LYMPHOCYTES # (AUTO) 2.4 K/uL (2.0-11.5); LYMPHOCYTES % (AUTO) 25.8 % (20.5-51.1); MEAN CORPUSCULAR HEMOGLOBIN 32 pg (27-31); MEAN CORPUSCULAR HGB CONC 33 g/dL (33-37); MEAN CORPUSCULAR VOLUME 98 fL (80-94); MONOCYTES # (AUTO) 0.9 K/uL (0.8-1.0); MONOCYTES % (AUTO) 9.7 % (1.7-9.3); NEUTROPHILS # (AUTO) 5.3 K/uL (1.8-7.7); NEUTROPHILS % (AUTO) 58.7 % (42.2-75.2); PLATELET COUNT (AUTO) 205 K/uL (140-450); RED BLOOD CELL COUNT(AUTO) 3.16 MIL/uL (4.20-6.10); RED CELL DISTRIBUTION WIDTH 13.5 % (11.6-13.7); WHITE BLOOD COUNT (AUTO) 9.2 K/uL (4.8-10.8)
[2017-04-15 06:28] LABS: ANION GAP 15.8 (8-16); CALCIUM 7.9 mg/dL (8.5-10.1); CARBON DIOXIDE 26.2 mmol/L (21-32); CHLORIDE 109 mmol/L (98-107); SODIUM SERUM 147 mmol/L (136-145); UREA NITROGEN, BLOOD 45 mg/dL (7-18)
[2017-04-15 06:29] LABS: MAGNESIUM 1.9 mg/dL (1.8-2.4); PHOSPHORUS 5.1 mg/dL (2.5-4.9)
[2017-04-15 06:38] LABS: GLUCOSE 43 mg/dL (74-106)
[2017-04-15] MEDS: BLOOD GLUCOSE MONITORING 1 DEV DEV FS SCH ×4 (06:43→21:21)
[2017-04-15] MEDS: DEXTROSE 50% 50 ML SYR IVP PRN (06:43)
--- NOTE | 2017-04-15 06:45 | NUR ---
BS 36, 50% DEXTROSE GIVEN ORDERED, PATIENT IS ASYMPTOMATIC, ABLE TO DRANK 2 BOXES OF CRANBERRY JUICE. WILL CHECK BS AFTER 15 MINUTES
--- NOTE | 2017-04-15 07:00 | NUR ---
BS 166. DR. Jesus SOTO, AWARE OF PATIENT'S LAB VALUES.
--- NOTE | 2017-04-15 07:18 | NUR ---
ENDORSED PLAN OF CARE TO DAY RN. PATIENT IS IN STABLE CONDITION.
--- NOTE | 2017-04-15 07:19 | NUR ---
RECEIVED REPORT OF PT FROM MECHANICAL SYSTEM TECHNICIAN NURSE AT BEDSIDE. PT IS AWAKE AND A&OX2. WILL RECHECK BS DUE TO LOW BS IN THE AM. PT IN STABLE CONDITION NOW. PT HAS AV SHUNT ON L U ARM AND IV ON R F/A 22 G RUNNING NS@100ML/HR. PT HAS BL HEEL PROTECTORS ON. PT HAS ULCER ON R HEEL AND SKIN TEAR ON L F/A. PT HAS SACRAL REDNESS. CALL LIGHT WITHIN REACH. WILL CONTINUE TO MONITOR.
[2017-04-15 08:00] VITALS: BP 131/65
[2017-04-15] MEDS: PANTOPRAZOLE 40 MG INJ VIAL IVP SCH ×2 (08:38→21:12)
[2017-04-15] MEDS: amLODIPine 5 MG TAB PO SCH (08:39)
[2017-04-15] MEDS: ASCORBIC ACID 500 MG TAB PO SCH (08:39)
[2017-04-15] MEDS: POTASSIUM CHLORIDE 10 MEQ TABER PO SCH ×2 (08:39→21:17)
[2017-04-15] MEDS: SIMETHICONE 80 MG TAB.CHEW PO SCH ×3 (08:40→16:42)
[2017-04-15] MEDS: ZINC SULF 220 MG CAP PO SCH (08:40)
[2017-04-15] MEDS: CALCIUM CARB/VIT-D 500 MG/200 IU 1 TAB PO SCH ×2 (08:41→21:16)
[2017-04-15] MEDS: LEVOTHYROXINE 0.1 MG TAB PO SCH (08:41)
[2017-04-15] MEDS: QUEtiapine FUMARATE 25 MG TAB PO SCH ×2 (08:41→21:16)
[2017-04-15] MEDS: traMADol 50 MG TAB PO SCH ×2 (08:41→21:17)
[2017-04-15] MEDS: VIT-B COMP/VIT-C/FOLIC ACID 1 TAB PO SCH (08:41)
[2017-04-15] MEDS: FERROUS SULFATE 325 MG TABEC PO SCH ×2 (08:41→21:16)
[2017-04-15] MEDS: MEROPENEM 500 MG in NACL 0.9% 50 ML IV SCH ×2 (08:42→21:12)
[2017-04-15] MEDS: FLUTICASONE NASAL 50 MCG/ACTUATION 16 GM BTL NS SCH ×2 (08:43→21:12)
[2017-04-15] MEDS: cloNIDine 0.1 MG TAB PO SCH ×2 (08:43→21:17)
--- NOTE | 2017-04-15 09:00 | NUR ---
PT TOLERATED MORNING MEDS WELL. NO COMPLAINTS AT THIS TIME. WENT BACK TO SLEEP. CALL LIGHT WITHIN REACH. WILL CONTINUE TO MONITOR.
--- NOTE | 2017-04-15 11:42 | NUR ---
CLEANED CHANGED AND REPOSITIONED PT. PT TOLERATED WELL. CALL LIGHT WITHIN REACH. WILL CONTINUE TO MONITOR.
[2017-04-15 12:00] VITALS: BP 113/58
--- NOTE | 2017-04-15 13:30 | NUR ---
SPOKE TO ON THE PHONE WITH RN TRANSLATION REGARDING PT'S CONDITION.
--- NOTE | 2017-04-15 13:50 | NUR ---
PT IS ITCHING AND SCRATCHING ARMS AND CHEST. APPLIED LOTION. NO MORE SCRATCHING AT THIS TIME. CALL LIGHT WITHIN REACH. WILL CONTINUE TO MONITOR.
--- NOTE | 2017-04-15 15:00 | NUR ---
PT RESTING IN BED. BADGER DISTILLER OPERATOR CAME TO VISIT. CALL LIGHT WITHIN REACH. WILL CONTINUE TO MONITOR.
[2017-04-15 16:00] VITALS: BP 113/58
[2017-04-15] MEDS: INSULIN LISPRO SLIDING SCALE 100 UNITS/ML VIAL SUBQ PRN (16:08)
--- NOTE | 2017-04-15 16:30 | NUR ---
PAGED NEPHRO DOCTOR ASSOCIATE FINANCIAL PLANNER REGARDING WHETHER PT SHOULD GET HD TMR.
--- NOTE | 2017-04-15 16:50 | NUR ---
HELD INSULIN DUE TO 2 EPISODES OF HYPOGLYCEMIA.
--- NOTE | 2017-04-15 17:12 | NUR ---
DR. SORENSON ORDERED HD FOR TOMORROW. DR ASKED NURSE TO PUT DOWN CALL DR SORENSON IN COMMENT. WILL COMPLETE ORDER LATER. HD NURSE LEVON NOTIFIED.
--- NOTE | 2017-04-15 19:23 | NUR ---
ENDORSED CARE OF PT TO PERSONAL CARE HOME ADMINISTRATOR NURSE AT BEDSIDE. PT IN STABLE CONDITION.
--- NOTE | 2017-04-15 19:24 | NUR ---
RECEIVED REPORT FROM DAY RN FOR CONTINUITY OF CARE. PATIENT IS A&OX2, UNABLE TO VERBALIZE UNDERSTANDING OF PLAN OF CARE. SHIFT ASSESSMENT DONE, VITAL SIGNS STABLE. NO S/S OF RESPIRATORY DISTRESS OR DISCOMFORT NOTED ON ROOM AIR. FLACC-0. IV TO RT FA PATENT AND FLUSHED. LT UPPER ARM AV SHUNT. BILATERAL HEEL BOOTS WITH RT HEEL ULCER, LT HAND SKIN TEAR AND SACRAL REDNESS/OLD WOUND. SUPRAPUBIC CATHETER IN PLACE DRAINING STRAW COLORED URINE TO GRAVITY. SAFETY/FALL/CONTACT PRECAUTIONS ENFORCED. WILL CONTINUE TO MONITOR.
[2017-04-15 20:00] VITALS: BP 131/68
[2017-04-15] MEDS: ATORVASTATIN 20 MG TAB PO SCH (21:16)
[2017-04-15] MEDS: DONEPEZIL 10 MG TAB PO SCH (21:16)
--- NOTE | 2017-04-15 21:16 | NUR ---
DUE MEDICATIONS ADMINISTERED, TOLERATED WELL. BLOOD SUGAR TAKEN 160, HELD INSULIN DUE TO PT HAVING DECREASED APPETITE AND EPISODES OF HYPOGLYCEMIA. SAFETY MEASURES ENFORCED, WILL CONTINUE TO MONITOR FREQUENTLY.
--- NOTE | 2017-04-15 23:55 | NUR ---
VITAL SIGNS STABLE. PATIENT NOW SLEEPING AT THIS TIME. WILL CONTINUE TO MONITOR FREQUENTLY.
[2017-04-16] VITALS: BP 115/59
--- NOTE | 2017-04-16 01:47 | NUR ---
PATIENT SLEEPING AT THIS TIME. NO S/S OF DISTRESS OR DISCOMFORT NOTED. SAFETY MEASURES ENFORCED, WILL CONTINUE TO MONITOR.
[2017-04-16 04:00] VITALS: BP 127/73
--- NOTE | 2017-04-16 04:07 | NUR ---
VITAL SIGNS STABLE AT THIS TIME. WOUND CARE PROVIDED. NO S/S OF DISTRESS OR DISCOMFORT NOTED. WILL CONTINUE TO MONITOR FREQUENTLY.
[2017-04-16] MEDS: BLOOD GLUCOSE MONITORING 1 DEV DEV FS SCH ×4 (05:57→20:17)
[2017-04-16] MEDS: INSULIN LISPRO SLIDING SCALE 100 UNITS/ML VIAL SUBQ PRN ×4 (06:20→22:22)
--- NOTE | 2017-04-16 06:20 | NUR ---
PATIENT MEDICATED FOR NAUSEA, BLOOD SUGAR TAKEN UP TO 166, ADMINISTERED INSULIN PER MD ORDER.
[2017-04-16 06:53] LABS: BASOPHILS # (AUTO) 0.2 K/uL (0.00-0.22); BASOPHILS % (AUTO) 1.7 % (0.0-2.0); EOSINOPHILS # (AUTO) 0.7 K/uL (0-0.4); HEMATOCRIT 32.4 % (36-52); HEMOGLOBIN 10.4 g/dL (12.0-18.0); LYMPHOCYTES % (AUTO) 21.9 % (20.5-51.1); MEAN CORPUSCULAR HEMOGLOBIN 32 pg (27-31); MEAN CORPUSCULAR HGB CONC 32 g/dL (33-37); MEAN CORPUSCULAR VOLUME 98 fL (80-94); MONOCYTES # (AUTO) 0.8 K/uL (0.8-1.0); NEUTROPHILS # (AUTO) 5.2 K/uL (1.8-7.7); NEUTROPHILS % (AUTO) 59.4 % (42.2-75.2); PLATELET COUNT (AUTO) 208 K/uL (140-450); RED BLOOD CELL COUNT(AUTO) 3.32 MIL/uL (4.20-6.10); RED CELL DISTRIBUTION WIDTH 13.9 % (11.6-13.7); WHITE BLOOD COUNT (AUTO) 8.9 K/uL (4.8-10.8)
[2017-04-16 06:55] LABS: ANION GAP 15.3 (8-16); CALCIUM 8.1 mg/dL (8.5-10.1); CARBON DIOXIDE 24.5 mmol/L (21-32); CHLORIDE 107 mmol/L (98-107); GLUCOSE 145 mg/dL (74-106); POTASSIUM 3.8 mmol/L (3.5-5.1); SODIUM SERUM 143 mmol/L (136-145); UREA NITROGEN, BLOOD 46 mg/dL (7-18)
[2017-04-16 06:57] LABS: CREATININE 5.3 mg/dL (0.7-1.3)
[2017-04-16 07:02] LABS: MAGNESIUM 1.8 mg/dL (1.8-2.4); PHOSPHORUS 5.1 mg/dL (2.5-4.9)
--- NOTE | 2017-04-16 07:21 | NUR ---
ENDORSED PATIENT TO DAY RN FOR CONTINUITY OF CARE, PATIENT IS IN STABLE CONDITION.
--- NOTE | 2017-04-16 07:22 | NUR ---
PT AWAKE ALERT AND ORIENTED X2, WITH PERIODS OF CONFUSION, INDONESIAN SPEAKING. BREATHING EVENLY AND UNLABORED. NO SIGNS OF ACUTE DISTRESS. NO SIGNS OF ANY BOWEL OR BLADDER DISCOMFORT. SKIN IS WARM AND DRY, DENIES OF ANY PAIN OR DISCOMFORT AT THIS TIME. ALL NEEDS ATTENDED, SAFETY PRECAUTIONS MAINTAINED. CALL LIGHT WITHIN REACH.
--- NOTE | 2017-04-16 07:27 | NUR ---
WAS SEEN BY NIKI FROM DIALYSIS. TO START HD TODAY. REPORT GIVEN. CONTINUE TO MONITOR.
[2017-04-16 08:00] VITALS: BP 119/65
--- NOTE | 2017-04-16 08:00 | NUR ---
PT STARTED ON HD, TOLERATING WELL. NO S/S OF ACUTE DISTRESS. CONTINUE TO MONITOR.
[2017-04-16] MEDS: cloNIDine 0.1 MG TAB PO SCH ×2 (08:21→20:21)
[2017-04-16] MEDS: PANTOPRAZOLE 40 MG INJ VIAL IVP SCH ×2 (08:21→20:14)
[2017-04-16] MEDS: MEROPENEM 500 MG in NACL 0.9% 50 ML IV SCH ×2 (08:21→20:14)
[2017-04-16] MEDS: FLUTICASONE NASAL 50 MCG/ACTUATION 16 GM BTL NS SCH ×2 (08:21→20:14)
[2017-04-16] MEDS: CALCIUM CARB/VIT-D 500 MG/200 IU 1 TAB PO SCH ×2 (08:22→20:21)
[2017-04-16] MEDS: FERROUS SULFATE 325 MG TABEC PO SCH ×2 (08:22→20:21)
[2017-04-16] MEDS: VIT-B COMP/VIT-C/FOLIC ACID 1 TAB PO SCH (08:22)
[2017-04-16] MEDS: traMADol 50 MG TAB PO SCH ×2 (08:22→20:21)
[2017-04-16] MEDS: ASCORBIC ACID 500 MG TAB PO SCH (08:22)
[2017-04-16] MEDS: POTASSIUM CHLORIDE 10 MEQ TABER PO SCH ×2 (08:22→20:21)
[2017-04-16] MEDS: QUEtiapine FUMARATE 25 MG TAB PO SCH ×2 (08:22→20:21)
[2017-04-16] MEDS: amLODIPine 5 MG TAB PO SCH (08:22)
[2017-04-16] MEDS: SIMETHICONE 80 MG TAB.CHEW PO SCH ×3 (08:22→16:06)
[2017-04-16] MEDS: LEVOTHYROXINE 0.1 MG TAB PO SCH (08:22)
[2017-04-16] MEDS: ZINC SULF 220 MG CAP PO SCH (08:22)
[2017-04-16] MEDS ORDERED: ALBUMIN HUMAN 25% 100 ML IV SCH (10:18)
--- NOTE | 2017-04-16 10:30 | NUR ---
WAS SEEN BY Jesus PETE NEW LAB ORDERS RECEIVED. NOTED AND CARRIED OUT.
--- NOTE | 2017-04-16 11:47 | NUR ---
PT FINISHED HD, TOLERATED WELL. NO SIGNS OF ACUTE DISTRESS. PER REPORT BY NIKI HD NURSE. PT OUTPUT IS 2.1L. CONTINUE TO MONITOR.
[2017-04-16 12:00] VITALS: BP 125/70
[2017-04-16 16:00] VITALS: BP 126/64
--- NOTE | 2017-04-16 18:02 | NUR ---
PT RESTING WELL IN BED, AWAKE AND RESPONSIVE, NO SIGNS OF ACUTE DISTRESS. WILL ENDORSE TO ONCOMING IMPLEMENTATION PROJECT COORDINATOR NURSE FOR CONTINUITY OF CARE.
--- NOTE | 2017-04-16 19:20 | NUR ---
RECEIVED REPORT FROM DAY RN FOR CONTINUITY OF CARE. PATIENT IS A&OX2, AWAKE AT THIS TIME AND ABLE TO FOLLOW COMMANDS. SHIFT ASSESSMENT DONE, VITAL SIGNS STABLE. NO S/S OF RESPIRATORY DISTRESS OR DISCOMFORT NOTED ON ROOM AIR. IV TO RT FA PATENT AND FLUSHED. LT UPPER ARM AV SHUNT. BILATERAL HEEL BOOTS WITH RT HEEL ULCER ROBYN, LT HAND SKIN TEAR AND SACRAL REDNESS/OLD WOUND, DRESSING DRY AND INTACT. SUPRAPUBIC CATHETER IN PLACE DRAINING LIGHT LATONYA URINE TO GRAVITY. SAFETY/FALL/CONTACT PRECAUTIONS ENFORCED. WILL CONTINUE TO MONITOR.
[2017-04-16 20:00] VITALS: BP 130/65
[2017-04-16] MEDS: DONEPEZIL 10 MG TAB PO SCH (20:20)
[2017-04-16] MEDS: ATORVASTATIN 20 MG TAB PO SCH (20:21)
--- NOTE | 2017-04-16 20:25 | NUR ---
DUE MEDICATIONS ADMINISTERED, TOLERATED WELL. BLOOD SUGAR 231, WILL ADMINISTER INSULIN PER MD ORDER. SAFETY MEASURES ENFORCED, WILL CONTINUE TO MONITOR.
--- NOTE | 2017-04-16 22:00 | NUR ---
PT C/O PAIN WHEN IV FLUSHED, NEW IV LINE INSERTION TO RT AC 22 GAUGE PATENT AND FLUSHED. SAFETY PRECAUTIONS ENFORCED, WILL CONTINUE TO MONITOR.
[2017-04-17] VITALS: BP 110/59
--- NOTE | 2017-04-17 00:10 | NUR ---
VITAL SIGNS STABLE, PATIENT RESTING AT THIS TIME, NO S/S OF DISTRESS OR DISCOMFORT NOTED. WILL CONTINUE TO MONITOR.
--- NOTE | 2017-04-17 02:05 | NUR ---
PATIENT SLEEPING AT THIS TIME, NO S/S OF DISTRESS OR DISCOMFORT NOTED. WILL CONTINUE TO MONITOR.
[2017-04-17 04:00] VITALS: BP 123/62
--- NOTE | 2017-04-17 04:11 | NUR ---
VITAL SIGNS STABLE. PATIENT NOW SLEEPING AT THIS TIME, NO S/S OF DISTRESS OR DISCOMFORT NOTED.
[2017-04-17] MEDS: BLOOD GLUCOSE MONITORING 1 DEV DEV FS SCH ×4 (05:57→21:45)
--- NOTE | 2017-04-17 06:00 | NUR ---
BLOOD SUGAR TAKEN, 120 NO COVERAGE NEEDED AT THIS TIME. PATIENT RESTING AT THIS TIME, NO S/S OF DISTRESS OR DISCOMFORT NOTED.
[2017-04-17 06:18] LABS: BASOPHILS # (AUTO) 0.1 K/uL (0.00-0.22); BASOPHILS % (AUTO) 0.8 % (0.0-2.0); EOSINOPHILS # (AUTO) 0.5 K/uL (0-0.4); EOSINOPHILS % (AUTO) 5.5 % (0.0-4.0); HEMATOCRIT 32.9 % (36-52); LYMPHOCYTES # (AUTO) 2.2 K/uL (2.0-11.5); LYMPHOCYTES % (AUTO) 25.4 % (20.5-51.1); MEAN CORPUSCULAR HEMOGLOBIN 32 pg (27-31); MEAN CORPUSCULAR HGB CONC 33 g/dL (33-37); MEAN CORPUSCULAR VOLUME 97 fL (80-94); MONOCYTES # (AUTO) 0.6 K/uL (0.8-1.0); MONOCYTES % (AUTO) 7.2 % (1.7-9.3); NEUTROPHILS # (AUTO) 5.4 K/uL (1.8-7.7); NEUTROPHILS % (AUTO) 61.1 % (42.2-75.2); PLATELET COUNT (AUTO) 180 K/uL (140-450); RED CELL DISTRIBUTION WIDTH 13.7 % (11.6-13.7); WHITE BLOOD COUNT (AUTO) 8.8 K/uL (4.8-10.8)
[2017-04-17 06:28] LABS: ANION GAP 10.6 (8-16); CALCIUM 7.8 mg/dL (8.5-10.1); CARBON DIOXIDE 30.1 mmol/L (21-32); CHLORIDE 103 mmol/L (98-107); CREATININE 3.8 mg/dL (0.7-1.3); GLUCOSE 118 mg/dL (74-106); POTASSIUM 3.7 mmol/L (3.5-5.1); SODIUM SERUM 140 mmol/L (136-145); UREA NITROGEN, BLOOD 31 mg/dL (7-18)
[2017-04-17 06:33] LABS: MAGNESIUM 1.6 mg/dL (1.8-2.4); PHOSPHORUS 3.5 mg/dL (2.5-4.9)
--- NOTE | 2017-04-17 07:30 | NUR ---
ENDORSED PATIENT TO DAY RN FOR CONTINUITY OF CARE, PATIENT IS IN STABLE CONDITION.
--- NOTE | 2017-04-17 07:31 | NUR ---
PATIENT AWAKE AND ALERT WITH CONFUSION, NO SIGNS OF ACUTE DISTRESS. BOWEL SOUNDS ACTIVE IN ALL 4 QUADRANTS, LEFT HAND SKIN TEAR OTS, RIGHT HEEL ULCER ROBYN WITH BILATERAL HEEL PROTECTORS IN PLACE, HEALED SACRAL WOUND RECORDS ADMINISTRATOR. BEDBOUND. SUPRAPUBIC CATHETER IN PLACE, INCONTINENT TO BOWEL AND BLADDER. LEFT UPPER ARM AV SHUNT WITH RT AC 22G AND RT FA 22G PATENT AND ASYMPTOMATIC. ON TELE MONITOR DISPLAYING SINUS RHYTHM. RE-ORIENTED PT TO HOSPITAL AND UNIT, PT VERBALIZED UNDERSTANDING, HOWEVER NEEDS REINFORCEMENT. BED IN LOW POSITION WITH BILATERAL HALF SIDE RAILS UP, CALL LIGHT WITHIN REACH.
[2017-04-17 08:00] VITALS: BP 134/67
[2017-04-17] MEDS: ZINC SULF 220 MG CAP PO SCH (08:43)
[2017-04-17] MEDS: POTASSIUM CHLORIDE 10 MEQ TABER PO SCH ×2 (08:43→21:28)
[2017-04-17] MEDS: VIT-B COMP/VIT-C/FOLIC ACID 1 TAB PO SCH (08:43)
[2017-04-17] MEDS: traMADol 50 MG TAB PO SCH ×2 (08:43→21:28)
[2017-04-17] MEDS: FERROUS SULFATE 325 MG TABEC PO SCH ×2 (08:43→21:29)
[2017-04-17] MEDS: LEVOTHYROXINE 0.1 MG TAB PO SCH (08:43)
[2017-04-17] MEDS: SIMETHICONE 80 MG TAB.CHEW PO SCH ×3 (08:44→17:50)
[2017-04-17] MEDS: amLODIPine 5 MG TAB PO SCH (08:44)
[2017-04-17] MEDS: QUEtiapine FUMARATE 25 MG TAB PO SCH ×2 (08:44→21:28)
[2017-04-17] MEDS: ASCORBIC ACID 500 MG TAB PO SCH (08:45)
[2017-04-17] MEDS: cloNIDine 0.1 MG TAB PO SCH ×2 (08:45→21:36)
[2017-04-17] MEDS: CALCIUM CARB/VIT-D 500 MG/200 IU 1 TAB PO SCH ×2 (08:45→21:28)
[2017-04-17] MEDS: MEROPENEM 500 MG in NACL 0.9% 50 ML IV SCH ×2 (08:46→21:37)
[2017-04-17] MEDS: PANTOPRAZOLE 40 MG INJ VIAL IVP SCH ×2 (08:46→21:28)
[2017-04-17] MEDS: FLUTICASONE NASAL 50 MCG/ACTUATION 16 GM BTL NS SCH ×2 (08:51→21:00)
[2017-04-17] MEDS ORDERED: [UNRECOGNIZED DRUG - OTHER] SCH (09:00)
[2017-04-17] MEDS ORDERED: DARBEPOETIN ALFA SCH (09:00)
--- NOTE | 2017-04-17 09:10 | NUR ---
Social Service Note: Late entry for 04/16/17: I met with patient's Annie (Taiwanese speaking). Per Annie, she would like patient to return to [facility] upon discharge.
[2017-04-17] MEDS ORDERED: MAG SULF 2000 MG/WATER PREMIX 50 ML IV SCH (10:42)
[2017-04-17 12:00] VITALS: BP 107/59
[2017-04-17 16:00] VITALS: BP 120/64
[2017-04-17] MEDS: INSULIN LISPRO SLIDING SCALE 100 UNITS/ML VIAL SUBQ PRN ×2 (17:43→21:44)
--- NOTE | 2017-04-17 19:09 | NUR ---
PT AWAKE AND ALERT, NO SIGNS OF ACUTE DISTRESS. ENDORSED TO SALES ASSISTANTS AND SALESPERSONS NURSE FOR CONTINUITY OF CARE.
--- NOTE | 2017-04-17 19:10 | NUR ---
RECEIVED REPORT FROM COSME SMITH AT BEDSIDE. INITIAL ASSESSMENT COMPLETED. PT AAOX2; EPISODES OF CONFUSION AT TIMES. PT BEDBOUND. PT HAS AV SHUNT ON LEFT ARM. PT HAS RIGHT AC 22 G SL. PT HAS A SUPRAPUBIC CATHETER IN PLACE. PT HAS A LEFT HAND SKIN TEAR, RIGHT HEEL ULCER AND SACRAL REDNESS OPEN TO AIR. FALL/SAFETY MEASURES IN PLACE. WILL CONTINUE TO MONITOR PT. BED ALARM ON.
[2017-04-17 20:00] VITALS: BP 111/76
[2017-04-17] MEDS: DONEPEZIL 10 MG TAB PO SCH (21:28)
[2017-04-17] MEDS: ATORVASTATIN 20 MG TAB PO SCH (21:29)
--- NOTE | 2017-04-17 21:45 | NUR ---
PT TOLERATED 2100 MEDS WELL. VS STABLE, FLUTICASONE NOT ADMINISTERED. MED NOT AVAILABLE. TURFGRASS TECHNICIAN AWARE.
--- NOTE | 2017-04-17 23:15 | NUR ---
PT STABLE, PT DENIES PAIN. WILL CONTINUE TO MONITOR PT.
[2017-04-18] VITALS: BP 117/87
--- NOTE | 2017-04-18 02:55 | NUR ---
PT CONFUSED, SCREAMING, TRYING TO GET OUT OF BED. VS STABLE, WILL GIVE ATIVAN ORDERED.
[2017-04-18 04:00] VITALS: BP 128/85
--- NOTE | 2017-04-18 04:15 | NUR ---
PT SLEEPING AT THIS TIME. NO SIGNS OF DISTRESS NOTED. WILL CONTINUE TO MONITOR PT.
--- NOTE | 2017-04-18 05:22 | NUR ---
PT HAS BEEN REPOSITIONED FOR COMFORT Q2H. PT TOLERATED IT WELL. NO SIGNS OF DISTRESS NOTED. WILL CONTINUE TO MONITOR PT.
[2017-04-18 06:18] LABS: BASOPHILS # (AUTO) 0.2 K/uL (0.00-0.22); BASOPHILS % (AUTO) 1.8 % (0.0-2.0); EOSINOPHILS # (AUTO) 0.5 K/uL (0-0.4); EOSINOPHILS % (AUTO) 5.8 % (0.0-4.0); HEMOGLOBIN 10.4 g/dL (12.0-18.0); LYMPHOCYTES # (AUTO) 2.2 K/uL (2.0-11.5); LYMPHOCYTES % (AUTO) 25.7 % (20.5-51.1); MEAN CORPUSCULAR HEMOGLOBIN 32 pg (27-31); MEAN CORPUSCULAR HGB CONC 33 g/dL (33-37); MEAN CORPUSCULAR VOLUME 97 fL (80-94); MONOCYTES # (AUTO) 0.8 K/uL (0.8-1.0); MONOCYTES % (AUTO) 9.5 % (1.7-9.3); NEUTROPHILS # (AUTO) 4.8 K/uL (1.8-7.7); NEUTROPHILS % (AUTO) 57.2 % (42.2-75.2); PLATELET COUNT (AUTO) 185 K/uL (140-450); RED BLOOD CELL COUNT(AUTO) 3.28 MIL/uL (4.20-6.10); RED CELL DISTRIBUTION WIDTH 13.4 % (11.6-13.7); WHITE BLOOD COUNT (AUTO) 8.5 K/uL (4.8-10.8)
[2017-04-18] MEDS: BLOOD GLUCOSE MONITORING 1 DEV DEV FS SCH ×2 (06:41→11:26)
[2017-04-18 06:43] LABS: CALCIUM 7.9 mg/dL (8.5-10.1); CARBON DIOXIDE 25.8 mmol/L (21-32); CHLORIDE 104 mmol/L (98-107); GLUCOSE 148 mg/dL (74-106); POTASSIUM 3.8 mmol/L (3.5-5.1); SODIUM SERUM 140 mmol/L (136-145); UREA NITROGEN, BLOOD 45 mg/dL (7-18)
[2017-04-18 06:56] LABS: CREATININE 4.8 mg/dL (0.7-1.3); PHOSPHORUS 3.9 mg/dL (2.5-4.9)
--- NOTE | 2017-04-18 07:10 | NUR ---
ENDORSED PLAN OF CARE TO DAY SHIFT NURSE. PT IN STABLE CONDITION.
--- NOTE | 2017-04-18 07:11 | NUR ---
PT AWAKE AND ALERT WITH PERIODS OF CONFUSION. NO SIGNS OF ACUTE DISTRESS. BOWEL SOUNDS ACTIVE IN ALL 4 QUADRANTS. INCONTINENT TO BOWEL AND BLADDER WITH SUPRAPUBIC CATHETER IN PLACE. LEFT HAND SKIN TEAR, RT HEEL ULCER AND HEALED SACRAL WOUND ROBYN WITH HEEL PROTECTORS IN PLACE. BEDBOUND. IV PATENT AND ASYMPTOMATIC. PT VERBALIZED HE DOES NOT HAVE PAIN AT THIS TIME. PATIENT IS GRENADIAN SPEAKING. RE-ORIENTED TO UNIT AND TO HOSPITAL, PT VERBALIZED UNDERSTANDING HOWEVER NEEDS REINFORCEMENT. BED IN LOW POSITION WITH BILATERAL HALF SIDE RAILS UP AND CALL LIGHT WITHIN REACH.
[2017-04-18 07:54] VITALS: BP 124/63
--- NOTE | 2017-04-18 08:03 | NUR ---
NIKI AGUIAR, ARRIVED TO BEGIN HEMODIALYSIS.
[2017-04-18] MEDS: FLUTICASONE NASAL 50 MCG/ACTUATION 16 GM BTL NS SCH (08:35)
[2017-04-18] MEDS: PANTOPRAZOLE 40 MG INJ VIAL IVP SCH (08:35)
[2017-04-18] MEDS: MEROPENEM 500 MG in NACL 0.9% 50 ML IV SCH (08:35)
[2017-04-18] MEDS: cloNIDine 0.1 MG TAB PO SCH (08:35)
[2017-04-18] MEDS: CALCIUM CARB/VIT-D 500 MG/200 IU 1 TAB PO SCH (08:36)
[2017-04-18] MEDS: FERROUS SULFATE 325 MG TABEC PO SCH (08:36)
[2017-04-18] MEDS: SIMETHICONE 80 MG TAB.CHEW PO SCH ×2 (08:36→12:58)
[2017-04-18] MEDS: amLODIPine 5 MG TAB PO SCH (08:36)
[2017-04-18] MEDS: QUEtiapine FUMARATE 25 MG TAB PO SCH (08:36)
[2017-04-18] MEDS: POTASSIUM CHLORIDE 10 MEQ TABER PO SCH (08:36)
[2017-04-18] MEDS: VIT-B COMP/VIT-C/FOLIC ACID 1 TAB PO SCH (08:36)
[2017-04-18] MEDS: ZINC SULF 220 MG CAP PO SCH (08:37)
[2017-04-18] MEDS: traMADol 50 MG TAB PO SCH (08:37)
[2017-04-18] MEDS: LEVOTHYROXINE 0.1 MG TAB PO SCH (08:37)
[2017-04-18] MEDS: ASCORBIC ACID 500 MG TAB PO SCH (08:37)
--- NOTE | 2017-04-18 09:13 | NUR ---
RECEIVED NEW ORDER FROM KADE LOPEZ TO DISCHARGE. NOTED, WILL FOLLOW UP WITH CLINICAL EDUCATION MANAGER FOR PLACEMENT, PATIENT CAME FROM [facility].
[2017-04-18] MEDS ORDERED: LORazepam 1 MG TAB PO PRN (10:38)
[2017-04-18] MEDS: INSULIN LISPRO SLIDING SCALE 100 UNITS/ML VIAL SUBQ PRN (11:48)
[2017-04-18 12:00] VITALS: BP 131/68
--- NOTE | 2017-04-18 12:07 | NUR ---
HEMODIALYSIS FINISHED WITH NIKI AGUIAR. PROCEDURE WAS 3 HOURS AND 30 MINUTES LONG. 2.8L FLUID WAS REMOVED. BLOOD PRESSURE WAS 137/88 AND TEMPERATURE WAS 98.2.
--- NOTE | 2017-04-18 12:10 | NUR ---
LEFT A MESSAGE FOR CHENG TO LET HER KNOW THAT PATIENT FINISHED DIALYSIS SO SHE CAN DO HIS VANCOMYCIN DOSING.
--- NOTE | 2017-04-18 12:59 | NUR ---
SS NOTE: [facility] ([phone]), PT CAN GO TO ROOM 125B ANYTIME WITH DR. Jesus SOTO FOLLOWING PT AT THEIR FACILITY. ERIKA PAPPAS.
--- NOTE | 2017-04-18 13:11 | NUR ---
CM NOTE SPOKE WITH BHAVNA CARVAJAL [facility] TO SET UP PATIENT TRANSPORT INTERVENTIONAL TECHNOLOGIST TIME 1500 GOING TO [facility] RM 125 B, ACCEPTING DR. Jesus SOTO, NUMBER TO CALL FOR REPORT [phone]. CHARGE NURSE CHIO AND NURSE SARAH PAPPAS.
[2017-04-18] MEDS ORDERED: VANCOMYCIN 500 MG in DEXTROSE 5% 100 ML IV SCH (14:00)
--- NOTE | 2017-04-18 14:50 | NUR ---
CALLED [facility] AND GAVE REPORT TO NAKUL. PATIENT TO BE TRANSFERRED TO [facility] IN ROOM 125B.
--- NOTE | 2017-04-18 14:55 | NUR ---
PATIENT AWAKE AND ALERT, WITH CONFUSION. NO SIGNS OF ACUTE DISTRESS. GAVE REPORT TO EMT FOR TRANSFER TO SNF. CUT OFF WRIST BANDS AND D/C'D TELE MONITOR. EDUCATED PATIENT ON DISCHARGE INSTRUCTIONS INCLUDING THE PLACE HE IS TRANSFERRING TO AND PRESCRIPTIONS HE WILL BE TAKING. PATIENT VERBALIZED UNDERSTANDING, HOWEVER NEEDS REINFORCEMENT DUE TO CONFUSION. LEFT VIA [facility] FOR TRANSFER.
--- NOTE | 2017-04-18 17:28 | NUR ---
SPOKE WITH PATIENT'S VIET AT [phone] TO INFORM HER THAT PATIENT WAS TRANSFERRED TO [facility]. SHE TOLD ME THAT SHE WAS ALREADY MADE AWARE OF HIS TRANSFER.
== END 2017-04-18 14:55 | DRG 871 ==
LOC: MED 21:42 → MTU 04-14 00:17
PROVIDERS: ADMIT Preventive Medicine Preventive Medicine/Occupational Environmental Medicine; ATTEND Preventive Medicine Preventive Medicine/Occupational Environmental Medicine
PROC: 5A1D60Z (ICD-10-PCS; principal; 2017-04-16)
DX: A41.9 Sepsis, unspecified organism (principal); N18.6 End stage renal disease; G93.41 Metabolic encephalopathy; N39.0 Urinary tract infection, site not specified; I13.2 Hypertensive heart and chronic kidney disease with heart failure and with stage 5 chronic kidney disease, or end stage renal disease; K21.9 Gastro-esophageal reflux disease without esophagitis; E03.9 Hypothyroidism, unspecified; I25.10 Atherosclerotic heart disease of native coronary artery without angina pectoris; G30.9 Alzheimer's disease, unspecified; J44.9 Chronic obstructive pulmonary disease, unspecified; E11.22 Type 2 diabetes mellitus with diabetic chronic kidney disease; I50.9 Heart failure, unspecified; E11.21 Type 2 diabetes mellitus with diabetic nephropathy; R53.81 Other malaise; G89.29 Other chronic pain; D63.1 Anemia in chronic kidney disease; E78.5 Hyperlipidemia, unspecified; E83.42 Hypomagnesemia; E83.51 Hypocalcemia; F02.80 Dementia in other diseases classified elsewhere, unspecified severity, without behavioral disturbance, psychotic disturbance, mood disturbance, and anxiety; L89.619 Pressure ulcer of right heel, unspecified stage; Z99.2 Dependence on renal dialysis; Z86.73 Personal history of transient ischemic attack (TIA), and cerebral infarction without residual deficits; Z88.5 Allergy status to narcotic agent; Z88.8 Allergy status to other drugs, medicaments and biological substances; Z79.899 Other long term (current) drug therapy; Z28.21 Immunization not carried out because of patient refusal
CPT/HCPCS: 36415; 71010; 80048; 80053; 80202; 81001; 82550; 82553; 82948; 83605; 83735; 83880; 84100; 84443; 84484; 85025; 85610; 85651; 85730; 86140; 87040; 87081; 87086; 93005; 96361; 96365; 99285; C9113; J1815; J1956; J2185; J2405; J3370; J3475; J7030; J7060; J7613; P9046; Q0092

== ENCOUNTER 2017-06-30 20:48 | Inpatient (IN) | payer OTHER, MEDICARE ==
[~2017-06-30] VITALS: Ht 170.2 cm; Wt 63.5 kg
[~2017-06-30 20:48] MED LIST changes: +ADVAIR DISKUS 21 DSK IH; -AMLO-27 PO; +AMLODIPINE10 M1 PO; +ARANESP0.06 MG/0. IJ; +ARANESP0.5 MG/ML SUBQ; +ARICEPT10 MG PO; +ATIVAN1 MG PO; -ATOR20TA40 PO; +ATORVASTATIN CA20 MG PO; -BEN50 PO; +BENADRYL50 M1 PO; -BISA-213 RC; -BISA10SU27 PR; +BISACODYL10 MG PR; -CALC1TAB75 PO; +CALCIUM 600-D 61 TAB PO; +CATAPRES0.1 M1 PO; +CATAPRES0.1 MG PO; +CIPRO500 MG PO; -CLON0.1T79 PO; +CLONIDINE0.1 M1 PO; +CLONIDINE0.1 MG/24 TD; +COLACE250 MG PO; +DIGITEK0.125 M1 PO; -DONE10TA3 PO; +DULCOLAX10 M2 RC; +DULCOLAX10 MG RC; +DUONEB 3 MG/3 ML3 ML IH; -FERR325E14 PO; +FERROUS SULFAT324 M2 PO; +FERROUS SULFAT325 M3 PO; +FERROUS SULFAT325 MG PO; +FLONASE0.05 MG/Ac NS; -FLUT0.057 NS; -FLUT1DSK2 IH; +FOSAMAX70 MG PO; +GLARGINE INSULIN SUBQ; -GLU1I SUBQ; +GLUCAGEN1 MG SUBQ; +GLUCOSE PO; -INSU100S22 SUBQ; +INSULIN HUMA100 U/ML SUBQ; +K-DUR10 MEQ PO; +K-DUR20 MEQ PO; +LANTUS INS100 UNITS/ SUBQ; +LANTUS SOLOS100 U/ML SUBQ; -LINE600T PO; +LIPITOR20 MG PO; +LOPID600 M1 PO; +LOPRESSOR25 MG PO; -LORA-476 PO; +LYRICA50 MG PO; +MAXIPIME1 GM IV; -MER500I IV; +MERREM500 MG IV; +METOCLOPRAMIDE10 M3 PO; +MIRALAX17 GM/DOSE PO; -MULT-1469 PO; +MULTIVITAMIN PO; +MYLICON80 MG PO; +NEPHRO-VITE VIT1 TAB PO; +NEPHRO-VITE1 TA1 PO; +NORVASC10 MG PO; +NOVOLIN R100 UNITS/ SUBQ; +NOVOLOG100 U/ML SUBQ; +NPH INSULIN SUBQ; -ONDA4ODT1 PO; -PANT40PD1 PO; -PANT40PK PO; +PEPCID20 M1 PO; +PEPCID20 MG PO; +PHENERGAN25 MG IM; +PHENERGAN25 MG/ML IM; +PHOSLO PO; +POLYETHYLE17 GM/Dos1 PO; -POTA20TE62 PO; +PRILOSEC20 M1 PO; +PROCARDIA XL90 M1 PO; +PROCRIT20000 U/ML SUBQ; -PRON INH; +PROTONIX40 M1 PO; +PROTONIX40 MG PO; +PROTONIX40 MG/Pack PO; +PROVENTIL2.5 MG/3 M INH; -QUET25TA46 PO; +QUETIAPINE FUMA25 M1 PO; +REGLAN10 MG PO; +RENA-VITE RX1 TAB PO; +RESOURCE PO; +RITALIN5 M1 PO; +SENOKOT8.6 MG PO; +SEROQUEL25 MG PO; -SIME80CT70 PO; -SLIDE SUBQ; +SODIUM BICARBO650 M1 PO; -SYN.1 PO; +SYNTHROID0.1 M1 PO; +SYNTHROID0.1 MG PO; -TRAM50TA94 PO; +TUMS PO; +TUMS500 M1 PO; +TYLENOL325 M2 PO; +ULTRAM50 MG PO; +VANCOMYCIN HYDRO1 GM IV; -VITA1TAB44 PO; +VITAMIN C500 M8 PO; +ZINC SULFATE220 M1 PO; -ZINC220C12 PO; +ZOFRAN ODT4 MG PO; +ZOLOFT50 MG PO; +ZOSYN 2.252.25 GM/50 IV; +ZYVOX600 MG PO; -[UNRECOGNIZED DRUG - CODE] IJ; +[UNRECOGNIZED DRUG - CODE] PO; -[UNRECOGNIZED DRUG - CODE] PO; +[UNRECOGNIZED DRUG - OTHER] SUBQ
[2017-06-30 21:16] VITALS: BP 97/40
--- NOTE | 2017-06-30 21:17 | NUR ---
BIBA TO ER BED 6
--- NOTE | 2017-06-30 21:25 | NUR ---
77 Y/O Jaya MIRELES FROM [facility] [employer]: PT PULLED OUT SOL ARTIS AND BS IN THE FIELD 302. LABORED RESP NOTED, ALERT AND ORIENTED X 3, O2 SAT 79-82 % RA, ER NOTIFIED, ON MONITOR, ON NONREBREATHER MASK, PLACE BY RT. ER MD MADE AWARE.
[2017-06-30] MEDS ORDERED: NACL 0.9% 1,000 ML IV ONE (21:35)
--- NOTE | 2017-06-30 22:53 | NUR ---
POST ABG, FIO2 DECREASED TO 40% PER DR. CARRANZA
--- NOTE | 2017-06-30 22:54 | NUR ---
FISTULA TO THE LEFT UPPER ARM, NO IV & BP
--- NOTE | 2017-06-30 23:56 | NUR ---
took patient off bipap and placed him on 2lnc. pt sats 100%. no sob noted at this time. order from dr duggan to take pt off bipap
[2017-07-01] VITALS (7 sets, daily range): BP systolic 98–132; BP diastolic 46–61
--- NOTE | 2017-07-01 00:06 | NUR ---
PT O2 AT 75%-80% ON NRM. ER MD DR. THORNE NOTIFIED. CALLED RT TO PUT PT BACK ON BIPAP.
--- NOTE | 2017-07-01 00:13 | NUR ---
RT AT BEDSIDE.
--- NOTE | 2017-07-01 00:18 | NUR ---
0013 DR THORNE ORDERED PT BACK ON BIPAP. 09/18 RR12 100% DUE TO SOB AND DROPPING SATS
[2017-07-01] MEDS ORDERED: VANCOMYCIN 1,000 MG in DEXTROSE 5% 250 ML IV ONE (00:20)
[2017-07-01] MEDS ORDERED: PIPERACILLIN/TAZOBACTAM 3.375 GM in DEXTROSE 5% 50 ML IV ONE (00:20)
[2017-07-01] MEDS ORDERED: GLUCAGON 1 MG VIAL SUBQ PRN (00:25)
[2017-07-01] MEDS ORDERED: BISACODYL 10 MG SUPP RC PRN ×2 (00:25→05:15)
[2017-07-01] MEDS ORDERED: LORazepam 1 MG TAB PO SCH ×2 (00:25→06:00)
[2017-07-01] MEDS ORDERED: PIPERACILLIN/TAZOBACTAM 3.375 GM VIAL IV ONE (00:38)
--- NOTE | 2017-07-01 00:50 | NUR ---
PT REPORT GIVEN TO ALBERT. WILL GO TO TELE 113. TRANSFER OF CARE AT THIS TIME.
--- NOTE | 2017-07-01 01:05 | NUR ---
PT BROUGHT TO UNIT IN [facility] BY ER NURSE. PT IS AAOX1, ON BIPAP AT 40%. PT HAS A 18 GAUGE IV TO THE RIGHT FOREARM. PT HAS OPEN WOUND ON RIGHT HEEL, CRACKED SKIN ON LEFT FOOT WITH A HARD MASS, PT ALSO HAS AN OPEN WOUND ON THE SACRUM AREA AND A SUPRAPUBIC CATHETER DRAINING CLOUDY URINE WITH SEDIMENTS. PT IS STABLE, NO SIGNS OF DISTRESS NOTED. BED IN LOW POSITION, CALL LIGHT WITHIN REACH. WILL CONTINUE TO MONITOR.
--- NOTE | 2017-07-01 01:10 | NUR ---
PATIENT TRANSFERRED TO ROOM 113 WITH NO INCIDENT. PLACED BACK ON BIPAP / RATE 12 FIO2 40
--- NOTE | 2017-07-01 01:15 | NUR ---
PT STABLE, NO SIGNS OF DISTRESS NOTED. CLEANED AND REPOSITIONED PT. PT VITAL SIGNS WERE WITHIN NORMAL LIMITS. BED IN LOW POSITION, CALL LIGHT WITHIN REACH. WILL CONTINUE TO MONITOR. GOT STOOL SAMPLE FROM PT FOR C. DIFF TESTING AND TOOK TO LAB. Addendum: 07/02/17 at 0808 by Merlyn Valenzuela RN WRONG ENTRY
[2017-07-01] MEDS ORDERED: VANCOMYCIN 1,000 MG VIAL ONE (02:20)
--- NOTE | 2017-07-01 03:20 | NUR ---
PT REMOVED BIPAP MASK AND IV. IV CATHETER INTACT. Addendum: 07/01/17 at 0757 by Merlyn Valenzuela RN PT SATURATING AT 90 ON ROOM AIR. RT CAME AND TRIED A VENTURI MASK, BUT PT TAKES THAT OFF TOO.
--- NOTE | 2017-07-01 03:52 | NUR ---
PATIENT TOOK HIMSELF OFF BIPAP, I PLACED PATIENT ON 50% VENTURI MASK, SAO2 98%, HR 91 RR 22, NO SIGNS OF RESP. DISTRESS NOTED
--- NOTE | 2017-07-01 04:52 | NUR ---
CALLED DR Checo SOTO TO INFORM HIM PT MEETS CRITERIA FOR SEVERE SEPSIS AND TO ASK IF PT CAN RECEIVE PO MEDS BECAUSE HE PULLED OUT IV AND IS NOT LETTING ANYONE PUT ANOTHER ONE. SAID TO GIVE ATIVAN 1MG PO NOW AND THAT HE WOULD PUT IN ORDERS. PT IN STABLE CONDITION. NO SIGNS OF DISTRESS NOTED. BED IN LOW POSITION, CALL LIGHT WITHIN REACH. WILL CONTINUE TO MONITOR.
--- NOTE | 2017-07-01 05:45 | NUR ---
CALLED [facility] TO ASK THEM TO VERIFY ATIVAN ORDER.
--- NOTE | 2017-07-01 06:50 | NUR ---
PT IS SLEEPING NOW. PT IS STABLE, NO SIGNS OF DISTRESS NOTED. BED IN LOW POSITION, CALL LIGHT WITHIN REACH. WILL CONTINUE TO MONITOR.
[2017-07-01] MEDS: BLOOD GLUCOSE MONITORING 1 DEV DEV FS SCH ×4 (07:30→21:21)
[2017-07-01] MEDS ORDERED: LEVOTHYROXINE 0.1 MG TAB PO SCH (07:40)
--- NOTE | 2017-07-01 07:40 | NUR ---
ENDORSED PT TO DAY SHIFT RN FOR CONTINUITY OF CARE. PT IN STABLE CONDITION.
--- NOTE | 2017-07-01 07:41 | NUR ---
RECEIVED REPORT FROM HORTICULTURAL SPECIALTY GROWER NURSE AT BEDSIDE FOR CONTINUITY OF CARE.
[2017-07-01] MEDS ORDERED: PANTOPRAZOLE 40 MG TABEC PO SCH (07:56)
[2017-07-01] MEDS: SIMETHICONE 80 MG TAB.CHEW PO SCH ×3 (08:11→16:47)
[2017-07-01] MEDS: VIT-B COMP/VIT-C/FOLIC ACID 1 TAB PO SCH (08:11)
[2017-07-01] MEDS: ZINC SULF 220 MG CAP PO SCH (08:11)
[2017-07-01] MEDS: FERROUS SULFATE 325 MG TABEC PO SCH ×2 (08:12→21:22)
[2017-07-01] MEDS: CALCIUM CARB/VIT-D 500 MG/200 IU 1 TAB PO SCH ×2 (08:12→21:23)
[2017-07-01] MEDS: traMADol 50 MG TAB PO SCH ×2 (08:13→21:23)
[2017-07-01] MEDS: POTASSIUM CHLORIDE 10 MEQ TABER PO SCH ×2 (08:13→16:47)
[2017-07-01] MEDS: QUEtiapine FUMARATE 25 MG TAB PO SCH ×2 (08:14→21:23)
[2017-07-01] MEDS: cloNIDine 0.1 MG TAB PO SCH ×2 (08:15→21:34)
[2017-07-01] MEDS: amLODIPine 5 MG TAB PO SCH (08:16)
--- NOTE | 2017-07-01 08:50 | NUR ---
PT PULLED OUT IV FROM RIGHT FA. IV CATHETER TIP INTACT. APPLIED DRESSING TO SITE . PT WAS TRYING TO REMOVE ID BANDS. TALKED TO PT TO LEAVE ID BANDS ON. WILL CONTINUE TO MONITOR.
[2017-07-01] MEDS: FLUTICASONE NASAL 50 MCG/ACTUATION 16 GM BTL NS SCH ×2 (09:00→21:27)
[2017-07-01] MEDS ORDERED: PANTOPRAZOLE 40 MG INJ VIAL IVP SCH (09:00)
[2017-07-01] MEDS ORDERED: ASCORBIC ACID 500 MG TAB PO SCH (09:00)
[2017-07-01] MEDS ORDERED: VIT-B COMP/VIT-C/FOLIC ACID 1 TAB PO SCH (09:00)
[2017-07-01] MEDS ORDERED: MEROPENEM 500 MG VIAL IV SCH (09:00)
[2017-07-01] MEDS ORDERED: NON-FORMULARY ITEM (Fluticasone/Salmeterol* (Advair 250-50 Diskus*) 1 DSK) IH SCH ×2 (09:00)
[2017-07-01] MEDS ORDERED: POTASSIUM CHLORIDE 10 MEQ TABER PO SCH (09:00)
[2017-07-01] MEDS ORDERED: NON-FORMULARY ITEM (Amlodipine Besylate (Amlodipine) 10 MG) PO SCH (09:00)
--- NOTE | 2017-07-01 09:13 | NUR ---
PATIENT HAS BEEN SCREENED AND CATEGORIZED HIGH NUTRITION RISK. PATIENT WILL BE SEEN WITHIN 1-2 DAYS OF ADMISSION. 07/01/17-07/02/[address]
[2017-07-01] MEDS: PIPER/TAZO 2.25GM/D5W PREMIX 50 ML IV SCH ×2 (11:07→21:31)
--- NOTE | 2017-07-01 11:09 | NUR ---
NEW IV STARTED. IV NOW ON RIGHT WRIST 24G. SITE INTACT. PT WAS NOT TRYING TO PULL OUT LINES. STARTED ZOSYN IVPB. TOLERATING WELL. PT PULLED OFF VENTURI MASK. REAPPLIED AND CHECKED O2 SAT WAS 94%. PULLED PT UP IN BED AND HOB IS ELEVATED. NO SIGNS OF RESPIRATORY DISTRESS NOTED. WILL CONTINUE TO MONITOR PT.
--- NOTE | 2017-07-01 12:12 | NUR ---
CHECKED PT BS WAS 143. NO COVERAGE NEEDED. PT REMOVED VENTURI MASK. CHECKED O2 SAT WAS 93% ON ROOM AIR. CHANGED O2 DELIVERY TO NC 5L. PT'S O2 SAT IS NOW 97%. PT IS RESTING IN BED RIGHT NOW. WILL CONTINUE TO MONITOR.
--- NOTE | 2017-07-01 14:16 | NUR ---
07/01/17 RD INITIAL ASSESSMENT COMPLETED PLEASE REFER TO NUTRITION ASSESSMENT UNDER CARE ACTIVITY FOR ESTIMATED NUTRITIONAL NEEDS. 1. CONTINUE CARDIAC DIET 2. ADD ORAL NUTRITION SUPPLEMENT - NOVASOURCE 3X A DAY 3. CONTINUE NEPHROVITE 1X/DAILY 4. D/C VITAMIN C 5. RD TO FOLLOW UP WITHIN 2-3 DAYS; HIGH RISK DICK TAPIA, RD
[2017-07-01] MEDS: PANTOPRAZOLE 40 MG TABEC PO SCH (16:46)
--- NOTE | 2017-07-01 16:46 | NUR ---
ADMINISTERED SCHEDULED MEDS. PT TOLERATED WELL. BS WAS 198. 2 UNITS OF INSULIN NEEDED FOR COVERAGE. PT HAD A BM OF BROWN LIQUID STOOL. CLEANED PT AND TURNED TO LEFT SIDE AND REPOSITIONED IN BED. OPEN WOUND ON SACRAL AREA IS COVERED WITH GAUZE AND TAPE.
--- NOTE | 2017-07-01 17:30 | NUR ---
PT IS EATING DINNER RIGHT NOW WITH REGISTERED NURSE BONE MARROW TRANSPLANT ASSISTING WITH FEEDING. ASSISTED TO REPOSITION AND TURN PT TO RIGHT SIDE. PT HAD A SMALL BM OF BROWN LIQUID STOOL. DRESSING WAS SOILED AND REMOVED FROM SACRAL AREA. PT WAS CLEANED. PT PULLED OFF NC. REAPPLIED NC AND O2 SAT WAS 96%. PT HAS NO SIGNS OF RESPIRATORY DISTRESS AT THIS TIME. WILL CONTINUE TO MONITOR.
[2017-07-01] MEDS: INSULIN LISPRO SLIDING SCALE 100 UNITS/ML VIAL SUBQ PRN (18:12)
--- NOTE | 2017-07-01 18:50 | NUR ---
PT PULLED OFF NC. APPLIED VENTURI MASK. PT O2 SAT IS 98%. PT IS RESTING IN BED. WILL CONTINUE TO MONITOR.
--- NOTE | 2017-07-01 19:05 | NUR ---
ENDORSED PT TO ALARM INSTALLER NURSE AT BEDSIDE FOR CONTINUITY OF CARE. VENTURI MASK IS STILL ON PT. APPLIED DRESSING TO SACRAL WOUND. PT HAD A SMALL BM OF BROWN LIQUID STOOL. CLEANED PT AND REPOSITIONED IN BED. PT IS IN STABLE CONDITION
--- NOTE | 2017-07-01 19:10 | NUR ---
RECEIVED REPORT FROM DAY SHIFT NURSE AT BEDSIDE. PT IS AAOX1, ON A VENTURI MASK. PT HAS A 22 GAUGE IV ON THE RIGHT FA, ASYMPTOMATIC, SL. PT IS STABLE, NO SIGNS OF DISTRESS NOTED. HELPED DAY RN APPLY DRESSING TO SACRAL WOUND. DISCUSSED PLAN OF CARE WITH PT, PT NEEDS REINFORCEMENT. BED IN LOW POSITION, CALL LIGHT WITHIN REACH. WILL CONTINUE TO MONITOR.
[2017-07-01] MEDS ORDERED: DONEPEZIL 10 MG TAB PO SCH (21:00)
[2017-07-01] MEDS ORDERED: VANCOMYCIN PER PHARMACY MC PRN (21:10)
[2017-07-01] MEDS ORDERED: PERMETHRIN 5% 60 GM TUBE TP ONE (21:10)
[2017-07-01] MEDS: ATORVASTATIN 20 MG TAB PO SCH (21:22)
[2017-07-01] MEDS: DONEPEZIL 10 MG TAB PO SCH (21:23)
[2017-07-01] MEDS: INSULIN DETEMIR 100 UNITS/ML 10 ML VIAL SUBQ SCH (21:38)
--- NOTE | 2017-07-01 21:50 | NUR ---
SCHEDULED MEDICATIONS ADMINISTERED. PT TOLERATED WELL, SWALLOWED PILLS ONE BY ONE. PT STABLE, NO SIGNS OF DISTRESS NOTED. PT VITAL SIGNS WERE WITHIN NORMAL LIMITS. CLEANED AND REPOSITIONED PT. BED IN LOW POSITION, CALL LIGHT WITHIN REACH. WILL CONTINUE TO MONITOR
--- NOTE | 2017-07-01 21:55 | NUR ---
TRIED TO INSERT NEW 24G IV BECAUSE PT PULLED OUT HIS IV AGAIN. CATHETER INTACT, NO EXCESSIVE BLEEDING. PT STABLE, NO SIGNS OF DISTRESS NOTED. PT VITAL SIGNS WERE WITHIN NORMAL LIMITS. BED IN LOW POSITION, CALL LIGHT WITHIN REACH. WILL CONTINUE TO MONITOR.
--- NOTE | 2017-07-01 23:00 | NUR ---
CHARGE NURSE INSERTED NEW 22G IV TO RIGHT FOREARM. PT STABLE, NO SIGNS OF DISTRESS NOTED. BED IN LOW POSITION, CALL LIGHT WITHIN REACH. WILL CONTINUE TO MONITOR.
--- NOTE | 2017-07-02 01:15 | NUR ---
PT STABLE, NO SIGNS OF DISTRESS NOTED. CLEANED AND REPOSITIONED PT. PT VITAL SIGNS WERE WITHIN NORMAL LIMITS. BED IN LOW POSITION, CALL LIGHT WITHIN REACH. WILL CONTINUE TO MONITOR. GOT STOOL SAMPLE FROM PT FOR C. DIFF TESTING AND TOOK TO LAB.
--- NOTE | 2017-07-02 03:10 | NUR ---
PT C/O ITCHINESS, CALLED [facility] TO ASK THEM TO PLEASE VERIFY DR CABRERA FOR ELAMITE, PHARMACIST AGREED TO VERIFY BUT SAID THE MEDICATION WOULDN'T BE THERE TIL OUR PHARMACY OPENED. PT OTHERWISE STABLE, NO SIGNS OF DISTRESS NOTED. PT VITAL SIGNS WERE WITHIN NORMAL LIMITS. BED IN LOW POSITION, CALL LIGHT WITHIN REACH. WILL CONTINUE TO MONITOR.
[2017-07-02 04:00] VITALS: BP 102/83
[2017-07-02] MEDS: LORazepam 2 MG/ML VIAL IVP PRN (04:03)
--- NOTE | 2017-07-02 04:03 | NUR ---
PT VERY AGITATED, ADMINISTERED PRN ATIVAN. AND PUT MITTENS ON. PT IN STABLE CONDITION, NO SIGNS OF DISTRESS NOTED. PT VITAL SIGNS WERE WITHIN NORMAL LIMITS. BED IN LOW POSITION, CALL LIGHT WITHIN REACH. WILL CONTINUE TO MONITOR.
[2017-07-02] MEDS: PANTOPRAZOLE 40 MG TABEC PO SCH ×2 (06:42→17:51)
[2017-07-02] MEDS: LEVOTHYROXINE 0.1 MG TAB PO SCH (06:43)
--- NOTE | 2017-07-02 06:50 | NUR ---
PT BLOOD SUGAR IS 23 AND PT LETHARGIC, PUSHED 50ML OF DEXTROSE VIA IV. WILL REASSESS IN A FEW MINUTES.
--- NOTE | 2017-07-02 07:05 | NUR ---
PT BLOOD SUGAR NOW 77. PT STABLE, NO SIGNS OF DISTRESS NOTED. PT VITAL SIGNS WERE WITHIN NORMAL LIMITS. BED IN LOW POSITION, CALL LIGHT WITHIN REACH. WILL CONTINUE TO MONITOR.
--- NOTE | 2017-07-02 07:25 | NUR ---
ENDORSED PT AT BEDSIDE TO DAY SHIFT COSME THOMPSON FOR CONTINUITY OF CARE. PT IN STABLE CONDITION
--- NOTE | 2017-07-02 07:27 | NUR ---
RECEIVED PT IN BED. ASLEEP. AROUSABLE TO TOUCH. NO SOB NOTED ON O2 AT 5LPM NC. NO SIGNS AND SYMPTOMS OF ACUTE PAIN OR DISCOMFORT NOTED AT THIS TIME. ALERT ORIENTEDX1. ON BEDREST. SUPRAPUBIC CATHETER IN PLACE. DRAINING YELLO URINE. SAFETY PRECAUTION IN PLACE. CALL LIGHT WITHIN REACH.
[2017-07-02] MEDS: BLOOD GLUCOSE MONITORING 1 DEV DEV FS SCH ×4 (07:59→21:12)
[2017-07-02 08:00] VITALS: BP 112/49
[2017-07-02] MEDS: cloNIDine 0.1 MG TAB PO SCH ×2 (09:00→20:38)
[2017-07-02] MEDS: amLODIPine 5 MG TAB PO SCH (09:00)
--- NOTE | 2017-07-02 09:36 | NUR ---
CALLED DIALYSIS NURSE LEVON MADE AWARE OF PT DIALYSIS ORDER AND SCHEDULE.
--- NOTE | 2017-07-02 09:37 | NUR ---
PER DIALYSIS NURSES LEVON. SHE WILL SEND SOMEONE FOR DIALYSIS TODAY. MADE AWARE THAT WILL HOLE BP MEDS, BUT OK TO GIVE OTHER MEDS.
[2017-07-02] MEDS: FLUTICASONE NASAL 50 MCG/ACTUATION 16 GM BTL NS SCH ×2 (09:46→20:36)
[2017-07-02] MEDS: PIPER/TAZO 2.25GM/D5W PREMIX 50 ML IV SCH ×2 (09:47→20:36)
[2017-07-02] MEDS: POTASSIUM CHLORIDE 10 MEQ TABER PO SCH ×2 (09:47→17:52)
[2017-07-02] MEDS: traMADol 50 MG TAB PO SCH ×2 (09:47→20:37)
[2017-07-02] MEDS: SIMETHICONE 80 MG TAB.CHEW PO SCH ×3 (09:47→17:52)
[2017-07-02] MEDS: FERROUS SULFATE 325 MG TABEC PO SCH ×2 (09:48→20:38)
[2017-07-02] MEDS: QUEtiapine FUMARATE 25 MG TAB PO SCH ×2 (09:48→20:38)
[2017-07-02] MEDS: VIT-B COMP/VIT-C/FOLIC ACID 1 TAB PO SCH (09:48)
[2017-07-02] MEDS: CALCIUM CARB/VIT-D 500 MG/200 IU 1 TAB PO SCH ×2 (09:48→20:38)
[2017-07-02] MEDS: ZINC SULF 220 MG CAP PO SCH (09:48)
--- NOTE | 2017-07-02 10:25 | NUR ---
WOUND CARE EVALUATION NOTES: REASON FOR EVALUATION: MULTIPLE WOUNDS COMPLETE SKIN ASSESSMENT DONE ON THIS 77 Y/O MALE PATIENT FROM [facility] TO [facility], WITH INITIAL DIAGNOSIS OF FEVER AND PULL OUT SUPRAPUBIC CATH. PAST MEDICAL HISTORY INCLUDE COPD, CVA, DIABETES, HYPERTENSION AND ESRD. ALL ABOVE INFORMATION WAS OBTAINED FROM THE ADMISSION H&P. LABS ARE WBC 14.9, H/H 9.3/29.2, POC GLUCOSE 77, ALBUMIN 2.9. CURRENT MEDS INCLUDE PIPERACILLIN, QUETIAPINE, LEVOTHYROXINE, DONEPEZIL HCL, TRAMADOL AND ATIVAN. PATIENT IS AWAKE, ALERT, AND ABLE TO FOLLOW SIMPLE COMMANDS. SKIN WARM TO TOUCH WNL, THICKENED TOENAILS, NO EDEMA, NO HAIR GROWTH AND BILATERAL PEDAL PULSES PRESENT. RIGHT FOREARM PERIPHERAL IV PATENT AND INTACT. SUPRAPUBIC CATHETER PATENT AND INTACT TO LATONYA COLORED URINE IN SMALL AMOUNT. NEEDS ASSISTANCE IN TURNING. PLAN OF CARE AND PRESSURE PREVENTIVE MEASURES DISCUSSED WITH PT AND PRIMARY NURSE. PT UNABLE TO VERBALIZE UNDERSTANDING. WILL REINFORCE TEACHING. INTEGUMENTARY: TRUNK, BACK, UE AND LE: SKIN RASHES SUPRAPUBIC CYSTOSTOMY CLEAN WITH CATH #[address] COCCYX - ST III - 1 .5X 1 X 0.3CM - 10% YELLOW AND 90% PINK. PW MACERATED. RIGHT HEEL - DIABETIC ULCER - 8 X 6 X UTD - 80% YELLOW AND 20% PINK. PW RED. RIGHT ACHILLES TENDON - DIABETIC ULCER - 3X 2 X UTD - 100% YELLOW. PW RED. RECOMMENDATIONS: -PREVENTIVE MEASUREMENT: APPLY ELIMITE CR. FROM HEAD TO TOE AUTOMOTIVE HARDWARE ENGINEER FOR 24 HR AND SHOWER OFF NEXT DAY, MAY REPEAT SAME PROCEDURE IN 7 DAYS -CLEANSE RIGHT HEEL WITH NS, PAT DRY, APPLY THERAHONEY GEL, COVER WITH ADAPTIC, AND DRY DRESSING AND SALVADOR Q DAY AND PRN IF SOILING -CLEANSE COCCYX WITH NS AND GAUZE, PAT DRY, APPLY THERAHONEY GEL, APPLY Z GUARD TO PW, COVER WITH ADAPTIC AND DRY DRESSING SECURE WITH TAPE Q DAY AND PRN IF SOILING -TURN AND REPOSITION PATIENT Q2H TO LEFT AND RIGHT SIDE ONLY TO OFFLOAD SACRALCOCCYX -ASSESS AND MONITOR SKIN CONDITION DURING POSITION CHANGE, PLEASE PAY PARTICULAR TTENTION TO SACRALCOCCYX AND HEELS -OFFLOAD BILATERAL HEELS BY PLACING PILLOWS UNDER CALVES AT ALL TIMES, UNLESS OTHERWISE CONTRAINDICATED -READY MIX TRUCK DRIVER CONSULT AND DEBRIDEMENT OF RIGHT HEEL -PRESSURE REDISTRIBUTION SURFACE THERAPY -VENOUS AND ARTERIAL DOPPLER U/S -KEEP SKIN CLEAN AND DRY AT ALL TIMES. RECOMMENDATIONS DISCUSSED WITH PRIMARY RN AND MESSAGE LEFT TO PMD TO CALL BACK (SPOKE TO LACEY) WILL FOLLOW UP PATIENT Q 7 -10 DAYS AND PRN. PLEASE CONTACT WOUND CARE NURSE FOR ANY CONCERNS AND CHANGES IN WOUND CONDITION
--- NOTE | 2017-07-02 11:03 | NUR ---
CALLED VIET REGARDING CONSENT FOR DIALYSIS. VERBAL CONSENT RECEIVED FROM VIET SINCE PT CAN'T SIGN. SHE SAID SHE WILL COME TO SIGN CONSENT LATER.
--- NOTE | 2017-07-02 11:04 | NUR ---
CHARLA NURSE CAME TO DO DIALYSIS.
[2017-07-02] MEDS ORDERED: Z-GUARD PASTE TP PRN (11:15)
[2017-07-02] MEDS ORDERED: THERAHONEY GEL 42.5 GM TP PRN (11:15)
--- NOTE | 2017-07-02 11:44 | NUR ---
SPOKE WITH DR. eJsus SOTO, AND AGREED WITH FNS RECOMMENDATION ANTONIA ENG. ORDERS MADE AND CARRIED OUT TORB.
[2017-07-02 12:00] VITALS: BP 121/65
[2017-07-02] MEDS: CHLORHEXADINE GLUC 2% CLOTH TP SCH (12:00)
--- NOTE | 2017-07-02 12:00 | NUR ---
VIET CAME TO SEE PT AND SIGNED CONSENT FOR DIALYSIS. VERBALIZED UNDERSTANDING.
[2017-07-02] MEDS: Z-GUARD PASTE TP SCH (13:00)
--- NOTE | 2017-07-02 13:27 | NUR ---
DIALYSIS STILL ON GOING. WILL ADMINISTER ELIMITE CREAM ON BODY AND BACTROBAN ON NARES LATER AFTER DIALYSIS.
--- NOTE | 2017-07-02 13:28 | NUR ---
DR. WELSH NOTIFY NEWSPAPER SUBSCRIPTION SOLICITOR CONSULT LIZBET DIABETIC ULCER.
[2017-07-02] MEDS ORDERED: PERMETHRIN 5% 60 GM TUBE TP SCH (15:00)
--- NOTE | 2017-07-02 15:08 | NUR ---
DIALYSIS WAS DONE, WITH 2L OF OUTPUT. PT SLEEPING RIGHT NOW. VITALS STABLE.
[2017-07-02] MEDS: THERAHONEY GEL 42.5 GM TP SCH (15:41)
[2017-07-02] MEDS: MUPIROCIN 2% OINT 22 GM TUBE TP SCH (15:42)
--- NOTE | 2017-07-02 15:47 | NUR ---
ELIMITE CREAM APPLIED TO WHOLE BODY. WILL ENDORSE TO SHOWER TOMORROW AFTER 8-12 HRS.
[2017-07-02 16:00] VITALS: BP 88/61
--- NOTE | 2017-07-02 19:12 | NUR ---
PT KEPT CLEAN, DRY AND COMFORTABLE, NEEDS ATTENDED, WILL ENDORSE TO NEXT SHIFT ON STABLE CONDITION, FOR CONTINUITY OF CARE.
--- NOTE | 2017-07-02 19:30 | NUR ---
ENDORSED TO NEXT SHIFT THAT ELIMITE CREAM WAS APPLIED AND PT WILL NEED TO SHOWER AFTER 8-12 HRS.
--- NOTE | 2017-07-02 19:31 | NUR ---
RECEIVED REPORT FROM AM NURSE. PT IS AOX1, ASLEEP, BUT AROUSABLE TO TOUCH. ON O2 VIA NC AT 5 L, WELL TOLERATED BY PT. NO S/S OF DISTRESS NOTED. NOTED WITH A RIGHT HEEL OPEN WOUND, LEFT FOOT OPEN WOUND, AND A OPEN WOUND SACRUM DRY AND INTACT.NOTED WITH A LEFT UPPER ARM AV SHUNT, NOTED WITH THE BRUIT AND THRILL. WITH A SUPRAPUBIC CATHETER. INITIAL ASSESSMENT DONE. REORIENTED PT TO THE UNIT, NEEDS REINFORCEMENT. WILL CONTINUE TO MONITOR. ALL NEEDS ATTENDED. CALL LIGHT WITHIN REACH. SAFETY CHECKS IN PLACE.
[2017-07-02 19:59] VITALS: BP_SYST 90; BP_SYST 98; BP_DIAS 45
[2017-07-02] MEDS: ATORVASTATIN 20 MG TAB PO SCH (20:37)
[2017-07-02] MEDS: DONEPEZIL 10 MG TAB PO SCH (20:37)
--- NOTE | 2017-07-02 20:38 | NUR ---
DUE MEDS GIVEN TO PT, DID NOT GIVE CATAPRES DUE TO LOW BLOOD PRESSURE. WILL CONTINUE TO MONITOR FOR ANY CHANGES.
[2017-07-02] MEDS: INSULIN LISPRO SLIDING SCALE 100 UNITS/ML VIAL SUBQ PRN (21:13)
[2017-07-02] MEDS: INSULIN DETEMIR 100 UNITS/ML 10 ML VIAL SUBQ SCH (21:13)
[2017-07-03] VITALS: BP 99/63
--- NOTE | 2017-07-03 00:30 | NUR ---
VITALS STABLE. NO S/S OF DISTRESS. FLACC SCORE - 0. SAW THAT THE IV WAS REMOVED, REINSERTED AN IV TO THE RIGHT FOREARM, 20 G SL. WILL CONTINUE TO MONITOR FOR ANY CHANGES.
[2017-07-03 03:23] VITALS: BP 110/78
[2017-07-03] MEDS: LORazepam 2 MG/ML VIAL IVP PRN ×2 (03:25→23:32)
--- NOTE | 2017-07-03 03:25 | NUR ---
PT SEEN AGITATED, GIVEN PRN ATIVAN.
[2017-07-03] MEDS: DEXTROSE 50% 50 ML SYR IVP PRN (06:14)
--- NOTE | 2017-07-03 06:45 | NUR ---
GAVE DUE MEDS, PUT WOUND CARE MACHINE ON PT'S BED.
[2017-07-03] MEDS: LEVOTHYROXINE 0.1 MG TAB PO SCH (06:47)
[2017-07-03] MEDS: PANTOPRAZOLE 40 MG TABEC PO SCH ×2 (06:47→16:43)
[2017-07-03] MEDS: BLOOD GLUCOSE MONITORING 1 DEV DEV FS SCH ×4 (07:01→21:34)
--- NOTE | 2017-07-03 07:20 | NUR ---
ENDORSED TO AM SHIFT NURSE FOR CONTINUITY OF CARE, IN STABLE CONDITION.
--- NOTE | 2017-07-03 07:25 | NUR ---
RECEIVED PATIENT REPORT FROM NIGHT NURSE AT BEDSIDE. PATIENT IS AAOX1, FOLLOWS COMMANDS, AND SHOWS NO S/S OF ACUTE DISTRESS. PATIENT'S NASAL CANNULA WAS OFF OF PATIENT. O2 SAT ON ROOM AIR WAS 96%. PATIENT IS BURKINAN SPEAKER AND WAS ASKED IF HE HAD ANY SOB. PATIENT DENIES SOB, DYSPNEA, AND PAIN. NOTED ON THE R ARM IV SL. PATIENT HAS OFF LOADING BOOTS ON BLE. NOTED DRX ON THE RIGHT HEEL. SCD'S IN PLACE. PATIENT HAS A WOUND BE IN PLACE FOR PREVENTATIVE MEASURES. NOTED SUPRAPUBIC CATHETER WITH MINIMAL CLOUDY LATONYA DRAINAGE. PATIENT ON TELE MONITOR. PATIENT HAS A SACRAL WOUND DRX THAT IS SOILED. WILL CHANGE DRX. PATIENT HAS DIARRHEA. SKIN HAS MULTIPLE RASHES. PATIENT IS ON CONTACT PRECAUTION FOR SCABIES AND MRSA OF THE NARES. THE BED IS LOWERED WITH CALL LIGHT WITHIN REACH. PATIENT WAS EDUCATED ON POC HOWEVER PATIENT NEEDS CONSTANT REINFORCEMENT.
[2017-07-03 08:00] VITALS: BP 117/63
[2017-07-03] MEDS ORDERED: DARBEPOETIN ALFA SCH (09:00)
[2017-07-03] MEDS: amLODIPine 5 MG TAB PO SCH (09:00)
[2017-07-03] MEDS ORDERED: [UNRECOGNIZED DRUG - OTHER] SCH (09:00)
[2017-07-03] MEDS ORDERED: VANCOMYCIN 1GM/DEXT 5% PREMIX 200 ML IV SCH (09:00)
[2017-07-03] MEDS: cloNIDine 0.1 MG TAB PO SCH ×2 (09:00→21:00)
[2017-07-03] MEDS: POTASSIUM CHLORIDE 10 MEQ TABER PO SCH ×2 (09:03→16:44)
[2017-07-03] MEDS: PIPER/TAZO 2.25GM/D5W PREMIX 50 ML IV SCH ×2 (09:03→20:54)
[2017-07-03] MEDS: FLUTICASONE NASAL 50 MCG/ACTUATION 16 GM BTL NS SCH ×2 (09:04→20:54)
[2017-07-03] MEDS: FERROUS SULFATE 325 MG TABEC PO SCH ×2 (09:05→20:54)
[2017-07-03] MEDS: SIMETHICONE 80 MG TAB.CHEW PO SCH ×3 (09:06→16:43)
[2017-07-03] MEDS: CALCIUM CARB/VIT-D 500 MG/200 IU 1 TAB PO SCH ×2 (09:09→20:53)
[2017-07-03] MEDS: traMADol 50 MG TAB PO SCH ×2 (09:09→20:53)
[2017-07-03] MEDS: ZINC SULF 220 MG CAP PO SCH (09:09)
[2017-07-03] MEDS: VIT-B COMP/VIT-C/FOLIC ACID 1 TAB PO SCH (09:09)
[2017-07-03] MEDS: QUEtiapine FUMARATE 25 MG TAB PO SCH ×2 (09:09→20:53)
--- NOTE | 2017-07-03 09:10 | NUR ---
ADMINISTERED SCHEDULED MEDICATIONS. PATIENT TOLERATED ACTIVITY WELL. PATIENT HAD TWO TABLETS AT A TIME WITH SIPS OF WATER. THE BED IS IN LOW POSITION WITH CALL LIGHT WITHIN REACH.
--- NOTE | 2017-07-03 09:45 | NUR ---
IT HAS BEEN ABOUT 17 HRS SINCE APPLICATION OF ELIMITE LOTION. PATIENT WAS GIVEN BED BATH. PATIENT CRIES OUT " I AM ITCHY, PLEASE HELP ME." IN ESTONIAN. PATIENT IS REMINDED OF THE ADMINISTRATION OF ELIMITE LOTION. PLACE MITTENS ON PATIENT BC HE SCRATCHES HIMSELF. IV ABX IS STILL INFUSING WELL. PATIENT WAS GIVEN PERINEAL CARE AND ALSO DRX WAS CHANGED AT THE SACRUM. WOUND WAS CLEANSED WITH NS, APPLIED THERDESTINIONEY, Mary MCKEOND AND ADAPTIC DRX WITH OPTIFOAM DRX. PATIENT TOLERATED ACTIVITY WELL. NEW LINENS AND GOWN WERE GIVEN. PATIENT IS NOW RESTING COMFORTABLY IN BED AT LOW POSITION WITH CALL LIGHT WITHIN REACH.
--- NOTE | 2017-07-03 11:20 | NUR ---
PATIENT IS RESTING IN BED AND SHOWS NO S/S OF ACUTE DISTRESS ON RA.
[2017-07-03 12:00] VITALS: BP 103/64
[2017-07-03] MEDS: MUPIROCIN 2% OINT 22 GM TUBE TP SCH (12:45)
[2017-07-03] MEDS: CHLORHEXADINE GLUC 2% CLOTH TP SCH (12:45)
--- NOTE | 2017-07-03 12:45 | NUR ---
PATIENT IS SLEEPING AND SHOWS NO S/S OF ACUTE DISTRESS ON ROOM AIR. THE BED IS LOWERED WITH CALL LIGHT WITHIN REACH.
[2017-07-03] MEDS: THERAHONEY GEL 42.5 GM TP SCH (13:11)
[2017-07-03] MEDS: Z-GUARD PASTE TP SCH (13:11)
--- NOTE | 2017-07-03 13:24 | NUR ---
PAGED DR. Jesus SOTO REGARDING MAGNESIUM OF 1.7 AND UPDATE ON CRITICAL VALUES OF BUN-67, CREATINE 11.0, POTASSIUM 5.5. WILL AWAIT CALL BACK.
--- NOTE | 2017-07-03 13:45 | NUR ---
ADMINISTERED SCHEDULED MEDICATIONS. PATIENT TOLERATED ACTIVITY WELL. PATIENT WAS ALSO GIVEN WOUND CARE ON THE R HEEL. OLD DRX WAS TAKE OFF AND CLEANSED WOUND WITH NS, APPLIED ADAPTIC WITH MAYITOONEY TO WOUND COVER WITH GAUZE AND WRAPPED HEEL WITH KERLIX. PATIENT TOLERATED ACTIVITY WELL AND DENIES PAIN. THE BED IS LOWERED WITH CALL LIGHT WITHIN REACH.
--- NOTE | 2017-07-03 14:40 | NUR ---
PATIENT SHOWS NO S/S OF ACUTE DISTRESS ON ROOM AIR. PT'S AT BEDSIDE. BED IS IN LOW POSITION WITH CALL LIGHT WITHIN REACH.
--- NOTE | 2017-07-03 15:32 | NUR ---
07/03/17 RD FOLLOW-UP ASSESSMENT COMPLETED PLEASE REFER TO NUTRITION ASSESSMENT UNDER CARE ACTIVITY FOR ESTIMATED NUTRITIONAL NEEDS. 1. CONTINUE CARDIAC, 60G CONSISTENT CARBOHYDRATE DIET + NOVASOURCE RENAL TID 2. CONTINUE NEPHR-SHANTEL 1X/DAILY 3. RD TO FOLLOW-UP 3-5 DAYS, MODERATE RISK DICK TAPIA, RD
[2017-07-03 16:00] VITALS: BP 123/57
--- NOTE | 2017-07-03 16:00 | NUR ---
PATIENT ON ROOM AIR O2 SAT WAS 88-90%. ADMINISTERED O2@ 2L NC. O2 SAT IS 93%-95%.
--- NOTE | 2017-07-03 16:50 | NUR ---
ADMINISTERED SCHEDULED MEDICATIONS. PATIENT WAS ALSO GIVEN PERINEAL CARE. PATIENT HAD SMALL LOOSE BM. SACRAL DRX WAS CHANGED. WOUND WAS CLEANSED WITH NS, THERAHONEY APPLIED TO ADAPTIC AND ADMINISTER ONTO SACRUM WITH ISLAND DREX TO SECURE. PATIENT DENIES PAIN AND TOLERATED ACTIVITY WELL. PATIENT WAS REPOSITIONED, BED IN LOW POSITION WITH CALL LIGHT WITHIN REACH.
[2017-07-03] MEDS ORDERED: MAG SULF 2000 MG/WATER PREMIX 50 ML IV ONE (18:30)
--- NOTE | 2017-07-03 18:30 | NUR ---
DR Constantino SOTO NOTIFIED OF PT MAGNESIUM OF 1.7.
--- NOTE | 2017-07-03 19:15 | NUR ---
PATIENT IS AAOX1 AND SHOWS NO S/S OF ACUTE DISTRESS. GAVE PATIENT REPORT AT BEDSIDE TO NIGHT NURSE. PATIENT ENDORSED IN STABLE CONDITION.
--- NOTE | 2017-07-03 19:16 | NUR ---
RECEIVED REPORT FROM DAY RN FOR CONTINUITY OF CARE. PATIENT IS ALERT AND ORIENTED X1. SHIFT ASSESSMENT DONE, VITAL SIGNS STABLE. NO S/S OF PAIN. IV TO RT WRIST PATENT AND INFUSING FLUIDS. PATIENT HAS LEFT ARM AV FISTULA NOTED. RT HEEL WOUND AND SACRAL WOUND NOTED. SUPRAPUBIC CATHETER IN PLACE WITH DARK LATONYA URINE. PATIENT CURRENTLY ON NASAL CANNULA AT 3L. SAFETY PRECAUTIONS ENFORCED, BED IN LOWEST POSITION. CONTACT PRECAUTIONS IN PLACE. WILL CONTINUE TO MONITOR FREQUENTLY.
[2017-07-03] MEDS: diphenhydrAMINE 50 MG CAP PO PRN (19:44)
[2017-07-03 20:00] VITALS: BP 84/41
[2017-07-03] MEDS: ATORVASTATIN 20 MG TAB PO SCH (20:54)
[2017-07-03] MEDS: DONEPEZIL 10 MG TAB PO SCH (20:54)
--- NOTE | 2017-07-03 21:00 | NUR ---
SPOKE TO DR. SORENSON REGARDING DIALYSIS ORDER.
--- NOTE | 2017-07-03 21:20 | NUR ---
PATIENT REMOVED IV, CANNULA INTACT. NEW IV INSERTION TO RT AC.
--- NOTE | 2017-07-03 21:43 | NUR ---
SPOKE TO DIALYSIS NURSE REGARDING ORDER FOR AM.
[2017-07-03] MEDS: INSULIN DETEMIR 100 UNITS/ML 10 ML VIAL SUBQ SCH (22:32)
--- NOTE | 2017-07-03 23:32 | NUR ---
PATIENT AGITATED, YELLING AND HITTING AT STAFF, ADMINISTERED ATIVAN PER MD ORDER, VITAL SIGNS STABLE. WILL CONTINUE TO MONITOR.
[2017-07-04] VITALS: BP 96/45
--- NOTE | 2017-07-04 01:59 | NUR ---
PATIENT ASLEEP AT THIS TIME, NO DISTRESS NOTED, WILL CONTINUE TO MONITOR.
[2017-07-04 04:00] VITALS: BP 101/54
--- NOTE | 2017-07-04 04:10 | NUR ---
VITAL SIGNS STABLE, PATIENT RESTING IN BED. SAFETY PRECAUTIONS ENFORCED, WILL CONTINUE TO MONITOR.
[2017-07-04] MEDS: LEVOTHYROXINE 0.1 MG TAB PO SCH (06:16)
[2017-07-04] MEDS: BLOOD GLUCOSE MONITORING 1 DEV DEV FS SCH ×4 (06:16→20:59)
[2017-07-04] MEDS: PANTOPRAZOLE 40 MG TABEC PO SCH ×2 (06:25→17:23)
--- NOTE | 2017-07-04 07:30 | NUR ---
ENDORSED PATIENT TO DAY RN FOR CONTINUITY OF CARE, PATIENT IS IN STABLE CONDITION.
--- NOTE | 2017-07-04 07:30 | NUR ---
RECEIVED REPORT FROM PM NURSE FOR CONTINUITY OF CARE. PT SLEEPING, AWAKENS EASILY. RESP EVEN AND UNLABORED. INITIAL ASSESSMENT DONE. IV INTACT, NO SWELLING OR REDNESS NOTED. SKIN WARM AND DRY. LEFT ARM AV FISTULA NOTED. RIGHT HEEL, L FOOT, AND SACRAL WOUND NOTED. SUPRAPUBIC CATHETER IN PLACED, DRAINING DARK LATONYA URINE. NO S/S OF DISTRESS. PT DENIES PAIN OR DISCOMFORT. PLAN OF CARE DISCUSSED WITH PT, VERBALIZED UNDERSTANDING. SAFETY MEASURES IN PLACED. SIDE RAILS UP, BED LOCKED ON LOW POSITION, CALL LIGHT WITHIN REACH. WILL CONTINUE TO MONITOR.
[2017-07-04 08:00] VITALS: BP 120/64
[2017-07-04] MEDS: POTASSIUM CHLORIDE 10 MEQ TABER PO SCH ×2 (08:00→17:23)
--- NOTE | 2017-07-04 08:00 | NUR ---
DIALYSIS NURSE AT BEDSIDE
--- NOTE | 2017-07-04 08:10 | NUR ---
FOUND PT'S IV DC'ED. BLEEDING UNDER CONTROL. CATH IV INTACT. WILL CONTINUE TO MONITOR.
[2017-07-04] MEDS: VIT-B COMP/VIT-C/FOLIC ACID 1 TAB PO SCH (09:00)
[2017-07-04] MEDS: PIPER/TAZO 2.25GM/D5W PREMIX 50 ML IV SCH ×4 (09:00→21:24)
[2017-07-04] MEDS: amLODIPine 5 MG TAB PO SCH (09:00)
[2017-07-04] MEDS: QUEtiapine FUMARATE 25 MG TAB PO SCH ×2 (09:00→21:00)
[2017-07-04] MEDS: SIMETHICONE 80 MG TAB.CHEW PO SCH ×3 (09:00→17:23)
[2017-07-04] MEDS: FLUTICASONE NASAL 50 MCG/ACTUATION 16 GM BTL NS SCH ×2 (09:00→20:59)
[2017-07-04] MEDS: CALCIUM CARB/VIT-D 500 MG/200 IU 1 TAB PO SCH ×2 (09:00→21:00)
[2017-07-04] MEDS: ZINC SULF 220 MG CAP PO SCH (09:00)
[2017-07-04] MEDS: MAGNESIUM OXIDE 400 MG TAB PO SCH (09:00)
[2017-07-04] MEDS: traMADol 50 MG TAB PO SCH ×2 (09:00→21:00)
[2017-07-04] MEDS: hydrOXYzine HCL 10 MG TAB PO SCH ×3 (09:00→17:23)
[2017-07-04] MEDS: cloNIDine 0.1 MG TAB PO SCH ×2 (09:00→21:00)
[2017-07-04] MEDS: FERROUS SULFATE 325 MG TABEC PO SCH ×2 (09:00→21:00)
[2017-07-04] MEDS: LORazepam 2 MG/ML VIAL IVP PRN (10:39)
--- NOTE | 2017-07-04 10:57 | NUR ---
DIALYSIS STILL ON GOING.
[2017-07-04 12:00] VITALS: BP 127/72
[2017-07-04] MEDS: CHLORHEXADINE GLUC 2% CLOTH TP SCH (12:00)
[2017-07-04] MEDS: MUPIROCIN 2% OINT 22 GM TUBE TP SCH (12:00)
--- NOTE | 2017-07-04 12:06 | NUR ---
Social Service Note: I faxed patient's clinical information to [facility] .
--- NOTE | 2017-07-04 12:29 | NUR ---
DIALYSIS DONE, 2L OF OUTPUT. PT RESTING QUIETLY. NO S/S OF DISTRESS, RESTLESSNESS, SOB. RESP EVEN AND UNLABORED. WILL CONTINUE TO MONITOR.
[2017-07-04] MEDS: Z-GUARD PASTE TP SCH (13:00)
[2017-07-04] MEDS: THERAHONEY GEL 42.5 GM TP SCH (13:00)
--- NOTE | 2017-07-04 13:10 | NUR ---
PERFORMED WOUND DRESSING CHANGED PER ORDER. ELIMITE CREAM APPLIED TO WHOLE BODY. WILL ENDORSE TO SHOWER TOMORROW AFTER 8-12 HOURS. WILL CONTINUE TO MONITOR.
--- NOTE | 2017-07-04 14:07 | NUR ---
Social Service Note: Parker Wilson from [facility] , patient may go to room 125B upon discharge, accepting physician is .
[2017-07-04] MEDS: INSULIN LISPRO SLIDING SCALE 100 UNITS/ML VIAL SUBQ PRN ×2 (14:46→18:20)
--- NOTE | 2017-07-04 15:52 | NUR ---
PT RESTING IN BED. NO S/S OF DISTRESS, SOB, RESTLESSNESS. SAFETY MEASURES IN PLACED. WILL CONTINUE TO MONITOR.
[2017-07-04 16:00] VITALS: BP 100/62
[2017-07-04] MEDS: ALBUTEROL 0.083% 2.5 MG/3 ML NEBU INH PRN (17:18)
--- NOTE | 2017-07-04 17:19 | NUR ---
PT WAS AWAKE AND ALERT. NOT ON NC. COMPLAINED OF SOB. HHN PRN GIVEN. STRONG MOIST NON PRODUCTIVE COUGH. POST THERAPY PT BACK ON NC AT 2LPM
--- NOTE | 2017-07-04 18:30 | NUR ---
PT RESTING QUIETLY IN BED. NO S/S OF DISTRESS, OR RESTLESSNESS. DENIES PAIN OR FURTHER NEEDS AT THIS TIME. SAFETY MEASURES IN PLACE. WILL CONTINUE TO MONITOR.
--- NOTE | 2017-07-04 19:23 | NUR ---
ENDORSED CARE TO PM NURSE FOR CONTINUITY OF CARE. PT IS STABLE CONDITION.
--- NOTE | 2017-07-04 19:24 | NUR ---
RECEIVED REPORT FROM AM SHIFT NURSE. PT IS ASLEEP, BUT IS EASILY AROUSED. IS ON O2 VIA NC AT 3 L, WELL TOLERATED BY PT. HAS NO IV ACCESS NOTED. LEFT ARM AV FISTULA, HAS THE BRUIT AND THRILL. WITH WOUNDS ON THE RIGHT HEEL, LEFT FOOT, AND SACRAL WOUND NOTED. SUPRAPUBIC CATHETER IN PLACE, DRAINING TO DARK URINE. REORIENTED PT TO THE UNIT, NEEDS REINFORCEMENT. WILL CONTINUE TO MONITOR. ALL NEEDS ATTENDED. CALL LIGHT WITHIN REACH, SAFETY CHECKS IN PLACE.
[2017-07-04] MEDS: DONEPEZIL 10 MG TAB PO SCH (20:59)
[2017-07-04] MEDS: ATORVASTATIN 20 MG TAB PO SCH (21:00)
[2017-07-04] MEDS: INSULIN DETEMIR 100 UNITS/ML 10 ML VIAL SUBQ SCH (21:00)
--- NOTE | 2017-07-04 21:00 | NUR ---
DUE MEDS GIVEN, SUGAR CHECK OF 145, GAVE NO INSULIN COVERAGE. WILL CONTINUE TO MONITOR FOR ANY CHANGES.
--- NOTE | 2017-07-04 21:30 | NUR ---
TRIED TO INSERT IV TO THE RIGHT FOREARM WITH NO SUCCESS. WILL CALL ER IN REGARDS TO IV INSERTION.
--- NOTE | 2017-07-04 21:35 | NUR ---
CALLED ER FOR INSERTION OF IV, AWAITING FOR THEM TO COME TO THE UNIT.
--- NOTE | 2017-07-04 21:55 | NUR ---
INFORMED DR. BAIRD ABOUT THE MULTIPLE INSERTS OF THE IV ACCESS AND ASKED ABOUT CHANGING THE IV ANTIBIOTIC TO A PO, SAID THAT THE PATIENT NEEDS THE IV ACCESS DUE TO MULTIPLE DRUG RESISTANCE.
--- NOTE | 2017-07-04 22:05 | NUR ---
PAGED DR. FRANCISCO GAONA FOR PT'S AGITATION, AWAITING CALL BACK
--- NOTE | 2017-07-04 22:25 | NUR ---
DR. FRANCISCO SOTO CALLED BACK, SAID PT CAN HAVE A PO ORDER OF ATIVAN 2 MG EVERY 4 HOURS FOR AGITATION. NOTED AND CARRIED OUT.
--- NOTE | 2017-07-04 22:35 | NUR ---
CALLED ICU NURSE FOR INSERTION OF AN IV FOR PT, AWAITING FOR THEM TO COME BY.
[2017-07-04 22:45] VITALS: BP_SYST 124; BP_SYST 129; BP_DIAS 72
[2017-07-04] MEDS: LORazepam 1 MG TAB PO PRN (22:46)
--- NOTE | 2017-07-04 22:46 | NUR ---
PT SEEN AGITATED, ATIVAN 2 MG PO. WILL CONTINUE TO MONITOR FOR ANY CHANGES.
--- NOTE | 2017-07-04 23:00 | NUR ---
IV WAS REINSERTED BY ICU NURSE ON THE RIGHT FOREARM, 22 G, INTACT AND PATENT.
[2017-07-05] VITALS: BP 108/60
--- NOTE | 2017-07-05 | NUR ---
VITALS STABLE. NO S/S OF DISTRESS. NO COMPLAINTS OF PAIN. WILL CONTINUE TO MONITOR FOR ANY CHANGES.
--- NOTE | 2017-07-05 02:05 | NUR ---
MADE ROUNDS. PT ASLEEP. NO S/S OF DISTRESS. WILL CONTINUE TO MONITOR FOR ANY CHANGES. CALL LIGHT WITHIN REACH.
--- NOTE | 2017-07-05 03:10 | NUR ---
FOUND PT'S IV REMOVED. CALLED ER TO SEE IF ANY RN IS AVAILABLE TO INSERT AN IV TO THE PATIENT. SAID NORY, RN IS COMING TO INSERT IV ON PT.
[2017-07-05 03:45] VITALS: BP 126/72
[2017-07-05] MEDS: LORazepam 2 MG/ML VIAL IVP PRN ×2 (03:46→18:12)
--- NOTE | 2017-07-05 03:46 | NUR ---
ER NURSE NORY WAS ABLE TO INSERT AN IV TO THE RIGHT AC 18 G, INTACT AND PATENT. WILL CONTINUE TO MONITOR FOR ANY CHANGES.
[2017-07-05] MEDS: LEVOTHYROXINE 0.1 MG TAB PO SCH (06:32)
[2017-07-05] MEDS: PANTOPRAZOLE 40 MG TABEC PO SCH ×2 (06:32→16:58)
[2017-07-05] MEDS: BLOOD GLUCOSE MONITORING 1 DEV DEV FS SCH ×4 (06:35→21:34)
[2017-07-05] MEDS: INSULIN LISPRO SLIDING SCALE 100 UNITS/ML VIAL SUBQ PRN ×3 (06:36→17:05)
--- NOTE | 2017-07-05 07:24 | NUR ---
ENDORSED TO AM SHIFT NURSE FOR CONTINUITY OF CARE, IN STABLE CONDITION.
--- NOTE | 2017-07-05 07:25 | NUR ---
RECEIVED REPORT FROM ORACLE APEX DEVELOPER NURSE, PT IS SLEEPING IN BED, PT IS AWAKEN WHEN CALLED BY NAME, PT IS A/OX1, BEDBOUND, PT HAS IV ON THE RT AC, PATENT, INTACT, FLUSHING WELL, PT HAS A SACRAL WOUND, PT ALSO HAS WOUND ON HIS RIGHT HEEL, PT HAS SUPRAPUBIC CATHETER IN PLACE, AV SHUNT ON HIS LEFT UPPER CHEST, PT IS ON O2 2L NC, NO S/S OF RESPIRATORY DISTRESS OR DISCOMFORT NOTED, DISCUSSED PLAN OF CARE WITH PT, PT VERBALIZED UNDERSTANDING, SAFETY/FALL PRECAUTIONS ARE IN PLACE, CALL LIGHT IS WITHIN REACH, WILL CONTINUE TO MONITOR.
[2017-07-05 08:00] VITALS: BP 100/73
[2017-07-05] MEDS: POTASSIUM CHLORIDE 10 MEQ TABER PO SCH ×2 (08:00→17:00)
[2017-07-05] MEDS: amLODIPine 5 MG TAB PO SCH (09:00)
[2017-07-05] MEDS: cloNIDine 0.1 MG TAB PO SCH ×2 (09:00→21:00)
[2017-07-05] MEDS: MAGNESIUM OXIDE 400 MG TAB PO SCH (09:00)
[2017-07-05] MEDS: traMADol 50 MG TAB PO SCH ×2 (09:00→21:11)
[2017-07-05] MEDS ORDERED: VANCOMYCIN 1GM/DEXT 5% PREMIX 200 ML IV SCH (09:00)
[2017-07-05] MEDS: PIPER/TAZO 2.25GM/D5W PREMIX 50 ML IV SCH ×2 (09:13→21:30)
[2017-07-05] MEDS: FERROUS SULFATE 325 MG TABEC PO SCH ×2 (09:21→21:10)
[2017-07-05] MEDS: hydrOXYzine HCL 10 MG TAB PO SCH ×3 (09:21→16:59)
--- NOTE | 2017-07-05 09:21 | NUR ---
DUE MEDICATIONS GIVEN, PT TOLERATED WELL, CALL LIGHT WITHIN REACH, WILL CONTINUE TO MONITOR.
[2017-07-05] MEDS: SIMETHICONE 80 MG TAB.CHEW PO SCH ×3 (09:22→16:59)
[2017-07-05] MEDS: CALCIUM CARB/VIT-D 500 MG/200 IU 1 TAB PO SCH ×2 (09:22→21:10)
[2017-07-05] MEDS: QUEtiapine FUMARATE 25 MG TAB PO SCH ×2 (09:22→21:10)
[2017-07-05] MEDS: ZINC SULF 220 MG CAP PO SCH (09:22)
[2017-07-05] MEDS: VIT-B COMP/VIT-C/FOLIC ACID 1 TAB PO SCH (09:22)
[2017-07-05] MEDS: FLUTICASONE NASAL 50 MCG/ACTUATION 16 GM BTL NS SCH ×2 (09:48→21:10)
--- NOTE | 2017-07-05 11:45 | NUR ---
WOUND CARE DONE AT THIS TIME, PT TOLERATED WELL, PATIENT'S GOWN AND BED LINENS CHANGED, SPONGE BATH GIVEN, ALL PATIENT'S NEEDS ARE MET AT THIS TIME, CALL LIGHT WITHIN REACH, WILL CONTINUE TO MONITOR
[2017-07-05] MEDS: CHLORHEXADINE GLUC 2% CLOTH TP SCH (12:18)
[2017-07-05] MEDS: MUPIROCIN 2% OINT 22 GM TUBE TP SCH (12:18)
[2017-07-05] MEDS: THERAHONEY GEL 42.5 GM TP SCH (12:38)
[2017-07-05] MEDS: Z-GUARD PASTE TP SCH (12:38)
--- NOTE | 2017-07-05 12:50 | NUR ---
DR. SOTO IN TO SEE PT, ASKED DR. SOTO IF HE COULD PLEASE PUT IN AN ORDER FOR THE ANTIBIOTIC THE PATIENT WOULD BE DISCHARGED ON.
--- NOTE | 2017-07-05 15:05 | NUR ---
1130 CALLED PLACED TO [facility] [phone] LEFT MESSAGE FOR YAMILE IN ADMISSIONS OF DISCHARGE AND TRANSFER BACK TO [facility] TODAY. 1200 [facility] INFORMATION WITH UPDATED CLINICAL INFORMATION FAXED TO [phone]. 1300 NO RETURN CALL FROM [facility]. CALLED AND SPOKE WITH YAMILE TO VERIFY INFORMATION WAS RECEIVED. YAMILE STATED THAT DUE TO PT'S ISOLATION NEEDS WILL NEED TO CHECK BED AVAILABILITY. 1430 RECEIVED A CALL FROM GLORIA AT [facility] STATING THAT THEY DO NOT HAVE ANY ISOLATION BEDS BUT IF ONE BECOMES AVAILABLE OVER THE WEEKEND THEY WILL CONTACT NURSING UNIT.
--- NOTE | 2017-07-05 15:05 | NUR ---
PT SLEEPING IN BED, CALL LIGHT WITHIN REACH.
--- NOTE | 2017-07-05 15:54 | NUR ---
NOTIFIED DR CHARLES SINGH REGARDING NO ISOLATION BED IN [facility], NEW ORDER HOLD DISCHARGE UNTIL BED AVAILABLE.
[2017-07-05 16:00] VITALS: BP 112/53
--- NOTE | 2017-07-05 18:32 | NUR ---
SPOKE TO DIALYSIS NURSE LEVON. I LET HER KNOW PATIENT HAS DIALYSIS ORDERED FOR TOMORROW.
--- NOTE | 2017-07-05 19:15 | NUR ---
ENDORSED PT TO CONTROLS PROJECT ENGINEER NURSE FOR CONTINUITY OF CARE, PT STABLE AT THIS TIME.
--- NOTE | 2017-07-05 19:15 | NUR ---
PATIENT IS CURRENTLY SLEEPING HAS OXYGEN AT 3L VIA NASAL CANNULA CONTINUES TO WEAR BILATERAL MITTENS TO PREVENT HIM FROM PULLING IV LINE OUT.CURRENT IV ACCESS TO RT AC G#[address] AND WRAPPED TO PROTECT IV SITE. HE IS CURRENTLY RESTING IN A WOUND CARE MATTRESS PATIENT HAS BILATERAL HEEL PROTECTORS AND HAS A DRESSING TO HIS RIGHT FOOT CURRENTLY DRY AND INTACT PATIENT HAS SCDS TO BLE FOR DVT PROPHALAXIS. PATIENT HAS A SUPRAPUBIC CATHETER IN PLACE WITH SCANT AMOUNT OF DRAINAGE NOTED TO URINE BAG. PATIENT WILL BE TURNED AND REPOSITION FOR COMFORT.CALL LIGHT WITHIN REACH WILL CONTINUE TO MONITOR.
--- NOTE | 2017-07-05 19:20 | NUR ---
Patient's Plan of Care was discussed and reviewed with WORKFORCE MANAGEMENT ANALYST: DHEERAJ BARCENAS
[2017-07-05 20:00] VITALS: BP 105/55
--- NOTE | 2017-07-05 20:15 | NUR ---
HS SNACK AND APPLESAUCE GIVEN TO THE PATIENT.
[2017-07-05] MEDS: ATORVASTATIN 20 MG TAB PO SCH (21:10)
[2017-07-05] MEDS: DONEPEZIL 10 MG TAB PO SCH (21:11)
[2017-07-05] MEDS: INSULIN DETEMIR 100 UNITS/ML 10 ML VIAL SUBQ SCH (21:45)
--- NOTE | 2017-07-05 22:02 | NUR ---
I PAGED PALIWAL EXCHANGE ZOSYN IV ANTIBIOTIC HAS BEEN DISCONTINUED WILL ASK MD WHEN HE CALLS BACK IF HE WANTS TO RESUME ANTIBIOTIC.
[2017-07-05] MEDS: diphenhydrAMINE 50 MG CAP PO PRN (22:10)
[2017-07-05] MEDS: LORazepam 1 MG TAB PO PRN (22:11)
--- NOTE | 2017-07-05 22:45 | NUR ---
Checo PATTERSON RETURNED THE CALL AND HE SPOKE WITH COSME WELLS AND GAVE HER NEW ORDERS.
--- NOTE | 2017-07-05 23:45 | NUR ---
NEW IV SITE OBTAINED WITH THE HELP OF COSME WELLS AFTER SEVERAL ATTEMPTS MADE AND AFTER USING THE ACCUVEIN TO FIND A VEIN PATIENT TOLERATED PROCEDURE WELL.CALL LIGHT WITHIN REACH.WILL CONTINUE TO OBSERVE.
[2017-07-06] VITALS: BP 108/76
--- NOTE | 2017-07-06 | NUR ---
PATIENT IS CURRENTLY RESTING IN BED CONTINUES TO BE TURNED AND REPOSITIONED FOR COMFORT.YELLING AT TIMES.PATIENT CONTINUES TO BE MONITORED CLOSELY.
[2017-07-06] MEDS ORDERED: PIPER/TAZO 2.25GM/D5W PREMIX 50 ML IV SCH (00:20)
--- NOTE | 2017-07-06 03:30 | NUR ---
PATIENT IS CURRENTLY SLEEPING IN BED IN NO DISTRESS WILL CONTINUE TO MONITOR.WILL CONTINUE TO OBSERVE.
[2017-07-06 05:29] VITALS: BP 114/68
[2017-07-06] MEDS: diphenhydrAMINE 50 MG CAP PO PRN ×3 (05:31→21:03)
[2017-07-06] MEDS: LORazepam 1 MG TAB PO PRN ×3 (05:31→21:04)
--- NOTE | 2017-07-06 06:00 | NUR ---
PATIENT IS CURRENTLY STABLE AWAKE ON AND OFF AND CONTINUES TO BE KEPT CLEAN AND DRY TURNED AND REPOSITIONED.IV SL PATENT. NO COMPLAINS OF PAIN AT THIS TIME.CONTINUES TO HAVE DVT PROPHALAXIS.WILL CONTINUE TO MONITOR.
[2017-07-06] MEDS: BLOOD GLUCOSE MONITORING 1 DEV DEV FS SCH ×4 (06:06→21:06)
[2017-07-06] MEDS: LEVOTHYROXINE 0.1 MG TAB PO SCH (06:06)
[2017-07-06] MEDS: PANTOPRAZOLE 40 MG TABEC PO SCH ×2 (06:51→16:54)
--- NOTE | 2017-07-06 07:15 | NUR ---
PATIENT STABLE REPORT ENDORSED TO RN TERRY AT BEDSIDE SHE WILL RESUME CARE OF THE PATIENT.
--- NOTE | 2017-07-06 07:20 | NUR ---
RECEIVED REPORT FROM ADMINISTRATIVE OFFICER NURSE, PT IS SLEEPING IN BED, PT IS AWAKEN WHEN CALLED BY NAME, PT IS A/OX1, BEDBOUND, PT HAS IV ON THE RT AC, PATENT, INTACT, FLUSHING WELL, PT HAS A SACRAL WOUND, PT ALSO HAS WOUND ON HIS RIGHT HEEL, PT HAS SUPRAPUBIC CATHETER IN PLACE, AV SHUNT ON HIS LEFT UPPER CHEST, PT IS ON O2 3L NC, NO S/S OF RESPIRATORY DISTRESS OR DISCOMFORT NOTED, DISCUSSED PLAN OF CARE WITH PT, PT VERBALIZED UNDERSTANDING, SAFETY/FALL PRECAUTIONS ARE IN PLACE, CALL LIGHT IS WITHIN REACH, WILL CONTINUE TO MONITOR.
[2017-07-06] MEDS: POTASSIUM CHLORIDE 10 MEQ TABER PO SCH ×2 (08:00→17:00)
--- NOTE | 2017-07-06 08:15 | NUR ---
DIALYSIS NURSE (LEVON) IS AT PATIENT'S BEDSIDE AT THIS TIME.
[2017-07-06] MEDS: SIMETHICONE 80 MG TAB.CHEW PO SCH ×3 (09:00→17:00)
[2017-07-06] MEDS: FERROUS SULFATE 325 MG TABEC PO SCH ×2 (09:00→21:03)
[2017-07-06] MEDS: cloNIDine 0.1 MG TAB PO SCH ×2 (09:00→21:04)
[2017-07-06] MEDS: ZINC SULF 220 MG CAP PO SCH (09:00)
[2017-07-06] MEDS: PIPER/TAZO 2.25GM/D5W PREMIX 50 ML IV SCH ×2 (09:00→21:00)
[2017-07-06] MEDS: VIT-B COMP/VIT-C/FOLIC ACID 1 TAB PO SCH (09:00)
[2017-07-06] MEDS: QUEtiapine FUMARATE 25 MG TAB PO SCH ×2 (09:00→21:03)
[2017-07-06] MEDS: hydrOXYzine HCL 10 MG TAB PO SCH ×3 (09:00→16:54)
[2017-07-06] MEDS: traMADol 50 MG TAB PO SCH ×2 (09:00→21:03)
[2017-07-06] MEDS: amLODIPine 5 MG TAB PO SCH (09:00)
[2017-07-06] MEDS: CALCIUM CARB/VIT-D 500 MG/200 IU 1 TAB PO SCH ×2 (09:00→21:03)
[2017-07-06] MEDS: FLUTICASONE NASAL 50 MCG/ACTUATION 16 GM BTL NS SCH ×2 (09:00→21:06)
[2017-07-06] MEDS: MAGNESIUM OXIDE 400 MG TAB PO SCH (09:00)
--- NOTE | 2017-07-06 09:45 | NUR ---
PT REFUSED FLONASE MEDICATION THAT WAS DUE AT THIS TIME.
--- NOTE | 2017-07-06 10:42 | NUR ---
PT IS RESTING IN BED RECEIVING DIALYSIS, DIALYSIS NURSE (LEVON) IS AT BEDSIDE.
[2017-07-06] MEDS: CHLORHEXADINE GLUC 2% CLOTH TP SCH (12:14)
[2017-07-06] MEDS: MUPIROCIN 2% OINT 22 GM TUBE TP SCH (12:14)
[2017-07-06] MEDS: INSULIN LISPRO SLIDING SCALE 100 UNITS/ML VIAL SUBQ PRN ×3 (12:14→21:07)
--- NOTE | 2017-07-06 12:25 | NUR ---
DIALYSIS OUTPUT 2.8 LITERS. PATIENT TOLERATED DIALYSIS WELL, PATIENT'S IS AT BEDSIDE, CALL LIGHT WITHIN REACH.
[2017-07-06] MEDS: THERAHONEY GEL 42.5 GM TP SCH (13:25)
[2017-07-06] MEDS: Z-GUARD PASTE TP SCH (13:25)
[2017-07-06 16:00] VITALS: BP 140/57
--- NOTE | 2017-07-06 16:55 | NUR ---
PATIENT PULLED IV OUT, CATHETER TIP IS INTACT.
--- NOTE | 2017-07-06 17:04 | NUR ---
K DUR AND SIMETHICONE HELD PER PARAMETERS PT RECENT POTASSIUM LEVEL IS 4.6 AND PT IS NOT HAVING TROUBLE PASSING GAS.
--- NOTE | 2017-07-06 18:15 | NUR ---
NEW IV WAS ATTEMPTED TO BE STARTED BY CHARGE NURSE, WITH NO SUCCESS.
--- NOTE | 2017-07-06 19:10 | NUR ---
PAGED DR. SOTO TO LET HIM KNOW THE PATIENT HAD PULLED OUT HIS IV AND WE WERE NOT ABLE TO RESTART A NEW BECAUSE PATIENT IS A HARD STICK.
--- NOTE | 2017-07-06 19:15 | NUR ---
ENDORSED PT TO LEHR CUTTER NURSE FOR CONTINUITY OF CARE, PT STABLE AT THIS TIME.
--- NOTE | 2017-07-06 19:20 | NUR ---
RECEIVED PHONE CALL FROM DR. SOTO, I LET DR. SOTO KNOW THE PATIENT HAD PULLED OUT HIS IV AND MULTIPLE ATTEMPTS HAVE BEEN DONE TO RESTART AN IV WITH NO SUCCESS. PER DR. SOTO OKAY TO START A PICC LINE.
--- NOTE | 2017-07-06 19:22 | NUR ---
SPOKE TO MOLD MAKING PLASTICS SHEETS SUPERVISOR I LET HIM KNOW DR. SOTO HAS JUST ORDERED A PICC LINE FOR PT.
--- NOTE | 2017-07-06 19:23 | NUR ---
PATIENT IS CURRENTLY AWAKE WITH CONFUSION RESTING IN BED WITH OXYGEN AT 3L VIA NASAL CANNULA IN PLACE NO SOB NOTED.PATIENT CONTINUES TO BE TURNED AND REPOSITIONED FOR COMFORT DRESSING TO SACRAL AREA CURRENTLY DRY AND INTACT. DRESSING TO RT FOOT CURRENTLY DRY AND INTACT. PATIENT CONTINUES TO WEAR BILATERAL HEEL PROTECTORS AND ALSO SCD'S TO BLE FOR DVT PROPHALAXIS.PATIENT CONTINUES TO WEAR BILATERAL MITTENS TO PREVENT HIM FROM PULLING OUT HIS SUPRAPUBIC CATHETER. SUPRAPUBIC CATHETER CURRENTLY IN PLACE VERY MINIMAL SCANT AMOUNT OF DARK LATONYA COLOR URINE NOTED.CALL LIGHT WITHIN REACH WILL CONTINUE TO MONITOR. MD SOTO WAS INFORMED BY COSME STEWART THAT PATIENT DOESN'T HAVE AN IV LINE AND IS ALSO AWARE THAT HE PATIENT CAN'T RECEIVE ANTIBIOTICS FOR TONIGHT BECAUSE PATIENT HAS NO IV ACCESS. ORDERED FOR PICCLINE AND BILLBOARD POSTER HAS BEEN INFORMED BY COSME STEWART.
--- NOTE | 2017-07-06 19:30 | NUR ---
Patient's Plan of Care was discussed and reviewed with SHEET TAILER: DHEERAJ BARCENAS
[2017-07-06 20:00] VITALS: BP 140/80
--- NOTE | 2017-07-06 20:45 | NUR ---
PATIENT IS SEVERELY CONFUSED KEEPS REMOVING BILATERAL MITTENS AND ATTEMPTS TO PULL ON HIS PICC LINE.PATIENT I ATTEMPTED TO PUT THE MITTENS ON AND PATIENT ATTEMPTS TO HIT AND BITE PRODUCTION MAINTENANCE MECHANIC REYES CAME TO HELP AND PATIENT IS FIGHTING AND CURSING DOESN'T WANT THE MITTENS BUT IS UNABLE TO COMPREHEND OR FOLLOW COMMANDS NOT TO REMOVE LINES.WILL PAGE Checo PATTERSON AND WILL INFORM HIM.
[2017-07-06] MEDS: ATORVASTATIN 20 MG TAB PO SCH (21:03)
--- NOTE | 2017-07-06 21:03 | NUR ---
PATIENT WAS ABLE TO TAKE HIS MEDICATION WELL AND I GAVE PATIENT A APPLESAUCE. PATIENT HAS PERIODS OF RESTLESSNESS AND YELLLING AND SCRATCHING CONTINUES TO BE MEDICATED WITH BENADRYL ORDERED.WILL CONTINUE TO MONITOR.
[2017-07-06] MEDS: INSULIN DETEMIR 100 UNITS/ML 10 ML VIAL SUBQ SCH (21:06)
[2017-07-06] MEDS: DONEPEZIL 10 MG TAB PO SCH (21:06)
--- NOTE | 2017-07-06 23:43 | NUR ---
WALE PICDANEINE NURSE CALLED AND SAID TO ME THAT IF I CANNOT GET A CONSENT FOR LIZZY KEE THEN TO ENDORSE TO INCOMING SHIFT ONCE THE CONSENT IS SIGNED HE WANTS THE NURSE TO CALL HIM AT . I TOLD WALE I WILL ATTEMPT TO CALL THE FAMILY AGAIN TOMORROW MORNING.
--- NOTE | 2017-07-07 01:35 | NUR ---
PATIENT MOVING ABOUT IN BED SLEEPING ON AND OFF.PATIENT CURRENTLY STABLE WILL CONTINUE TO MONITOR.
--- NOTE | 2017-07-07 02:25 | NUR ---
PATIENT IS CURRENTLY SLEEPING COMFORTABLY IN BED AT THIS TIME IN NO DISTRESS WILL CONTINUE TO MONITOR.
--- NOTE | 2017-07-07 03:47 | NUR ---
PATIENT IS CURRENTLY SLEEPING IN BED RESTLESS AT TIMES.WILL CONTINUE TO MONITOR.
--- NOTE | 2017-07-07 04:52 | NUR ---
PATIENT CURRENTLY RESTING IN BED RESTLESS PATIENT WAS TURNED AND REPOSITIONED FOR COMFORT WITH THE ASSISTANCE OF VALENTINA BAILON AND [employer] CHAMBERS. CONTINUES TO HAVE SCD'S TO BLE IN PLACE AND HEEL PROTECTORS.SUPRAPUBIC CATHETER IN PLACE AND CONTINUES TO HAVE BILATERAL MITTENS.WILL CONTINUE TO MONITOR.
[2017-07-07] MEDS: diphenhydrAMINE 50 MG CAP PO PRN ×3 (04:54→21:19)
[2017-07-07] MEDS: LORazepam 1 MG TAB PO PRN ×2 (04:55→21:16)
[2017-07-07 05:00] VITALS: BP 132/62
[2017-07-07] MEDS: BLOOD GLUCOSE MONITORING 1 DEV DEV FS SCH ×4 (05:43→20:51)
[2017-07-07] MEDS: LEVOTHYROXINE 0.1 MG TAB PO SCH (05:56)
--- NOTE | 2017-07-07 06:11 | NUR ---
PATIENT IS CURRENTLY STABLE RESTING IN BED SLEEPING WITH HIS OXYGEN AT 3L VIA NASAL CANNULA.PATIENT IS CURRENTLY STABLE IN NO DISTRESS PATIENT WAS TURNED AND REPOSITIONED CONTINUES TO HAVE SUPRAPUBIC CATHETER IN PLACE AND SCD'S WILL CONTINUE TO MONITOR.
--- NOTE | 2017-07-07 06:38 | NUR ---
I WAS ABLE TO GET A TELEPHONE CONSENT FOR PICCLINE FROM [facility] PATIENT'S AND THEN I LEFT A MESSAGE FOR WALE PICCLINE LINE NURSE I LEFT A MESSAGE LETTING HIM KNOW THAT I ALREADY GOT THE CONSENT FOR PICCLINE.I WILL ENDORSE TO AM SHIFT NURSE TO FOLLOW UP.
--- NOTE | 2017-07-07 07:14 | NUR ---
BIPAP IS BEDSIDE BUT NOT INDICATED AT THIS TIME. PT IS NOT SOB NOT IN RESPIRATORY DISTRESS.
[2017-07-07] MEDS: PANTOPRAZOLE 40 MG TABEC PO SCH ×2 (07:32→17:03)
--- NOTE | 2017-07-07 07:32 | NUR ---
PATIENT STABLE REPORT ENDORSED TO COSME STEWART. INFORMED TO FOLLOW UP WITH PICCLINE CONSENT NEEDS FRANCISCO PATTERSON TO COME AND SIGN THE CONSENT THEN INFORM PICCLINE NURSE WALE.PATIENT STABLE NO DISTRESS CONTINUES TO ITCH RN TERRY AWARE HE HAS BEEN MEDICATED WITH ATIVAN AND BENADRYL.COSME STEWART WILL RESUME CARE OF THE PATIENT.
--- NOTE | 2017-07-07 07:36 | NUR ---
RECEIVED REPORT FROM ELECTRONIC INSTRUMENT TRADES WORKER NURSE, PT IS SLEEPING IN BED, PT IS AWAKEN WHEN CALLED BY NAME, PT IS A/OX1, BEDBOUND, PT HAS NO IV ACCESS AT THIS TIME, PT HAS A SACRAL WOUND, PT ALSO HAS WOUND ON HIS RIGHT HEEL, PT HAS SUPRAPUBIC CATHETER IN PLACE, AV SHUNT ON HIS LEFT UPPER ARM, PT IS ON O2 3L NC, NO S/S OF RESPIRATORY DISTRESS OR DISCOMFORT NOTED, DISCUSSED PLAN OF CARE WITH PT, PT VERBALIZED UNDERSTANDING, SAFETY/FALL PRECAUTIONS ARE IN PLACE, CALL LIGHT IS WITHIN REACH, WILL CONTINUE TO MONITOR.
[2017-07-07 08:00] VITALS: BP 111/62
[2017-07-07] MEDS: POTASSIUM CHLORIDE 10 MEQ TABER PO SCH ×2 (08:00→17:00)
[2017-07-07] MEDS: traMADol 50 MG TAB PO SCH ×2 (08:33→21:15)
[2017-07-07] MEDS: cloNIDine 0.1 MG TAB PO SCH ×2 (08:33→21:00)
[2017-07-07] MEDS: CALCIUM CARB/VIT-D 500 MG/200 IU 1 TAB PO SCH ×2 (08:33→21:16)
[2017-07-07] MEDS: ZINC SULF 220 MG CAP PO SCH (08:33)
[2017-07-07] MEDS: hydrOXYzine HCL 10 MG TAB PO SCH ×3 (08:34→17:03)
[2017-07-07] MEDS: FERROUS SULFATE 325 MG TABEC PO SCH ×2 (08:34→21:20)
[2017-07-07] MEDS: QUEtiapine FUMARATE 25 MG TAB PO SCH ×2 (08:34→21:19)
[2017-07-07] MEDS: SIMETHICONE 80 MG TAB.CHEW PO SCH ×3 (08:34→17:03)
[2017-07-07] MEDS: VIT-B COMP/VIT-C/FOLIC ACID 1 TAB PO SCH (08:34)
[2017-07-07] MEDS: FLUTICASONE NASAL 50 MCG/ACTUATION 16 GM BTL NS SCH ×2 (08:35→21:20)
[2017-07-07] MEDS: amLODIPine 5 MG TAB PO SCH (08:35)
[2017-07-07] MEDS: PIPER/TAZO 2.25GM/D5W PREMIX 50 ML IV SCH ×2 (09:00→20:39)
[2017-07-07] MEDS ORDERED: MAG SULF 2000 MG/WATER PREMIX 50 ML IV ONE (09:30)
[2017-07-07] MEDS ORDERED: POTASSIUM PHOSPHATE 15 MM in NACL 0.9% 250 ML IV ONE (09:30)
[2017-07-07] MEDS: MAGNESIUM OXIDE 400 MG TAB PO SCH (10:26)
--- NOTE | 2017-07-07 13:00 | NUR ---
PICC LINE INSERTED AT THIS TIME ON THE RIGHT UPPER EXTREMITY. IV POTASSIUM PHOS. STARTED AT THIS TIME 250ML AT A RATE OF 42.5ML. PT TOLERATED WELL, CALL LIGHT WITHIN REACH, WILL CONTINUE TO MONITOR.
[2017-07-07] MEDS: THERAHONEY GEL 42.5 GM TP SCH (13:33)
[2017-07-07] MEDS: Z-GUARD PASTE TP SCH (13:33)
--- NOTE | 2017-07-07 13:40 | NUR ---
PATIENT RESTING IN BED, PATIENT'S IS AT BEDSIDE, CALL LIGHT WITHIN REACH.
[2017-07-07] MEDS: LORazepam 2 MG/ML VIAL IVP PRN (15:09)
--- NOTE | 2017-07-07 15:30 | NUR ---
PT IS SLEEPING IN BED, NO S/S OF RESPIRATORY DISTRESS NOTED, CALL LIGHT WITHIN REACH.
--- NOTE | 2017-07-07 15:42 | NUR ---
07/07/17 RD FOLLOW UP COMPLETED. PLEASE REFER TO NUTRITION PROGRESS NOTES UNDER CARE ACTIVITY FOR ESTIMATED NUTRITIONAL NEEDS. RD RECOMMENDATIONS: 1. CONTINUE CARDIAC, 60G CONSISTENT CARBOHYDRATE DIET 2. CONTINUE ORAL SUPPLEMENT NOVASOURCE 3X A DAY 3. CONTINUE NEHPRO-SHANTEL 4. RD TO FOLLOW UP WITHIN 3-5 DAYS; MODERATE RISK ZACARIAS SCHMIDT MBA, RD
[2017-07-07 16:00] VITALS: BP 103/54
--- NOTE | 2017-07-07 17:10 | NUR ---
PATIENT REPOSITIONED FOR COMFORT.
[2017-07-07] MEDS: INSULIN LISPRO SLIDING SCALE 100 UNITS/ML VIAL SUBQ PRN (17:57)
--- NOTE | 2017-07-07 19:20 | NUR ---
ENDORSED PT TO CLINICAL RESEARCHER NURSE FOR CONTINUITY OF CARE, PT STABLE AT THIS TIME.
--- NOTE | 2017-07-07 19:21 | NUR ---
PATIENT IS CURRENTLY RESTING IN BED AT THIS TIME WITH OXYGEN AT 3L VIA NASAL CANNULA.PICCLINE CURRENTLY NOTED TO RT ARM AND IS CURRENTLY WRAPPED WITH SALVADOR GAUZE.PATIENT WAS TURNED AND REPOSITIONED AND DRESSING TO SACRAL AREA IS CURRENTLY DRY AND INTACT AND DRESSING TO RT FOOT IS ALSO CURRENTLY DRY AND INTACT. DRESSING TO RT FOOT CURRENTLY DRY AND INTACT AND PATIENT CONTINUES TO WEAR BILATERAL HEEL PROTECTORS AND CONTINUES TO HAVE SCD'S FOR DVT PROPHALAXIS. FREQUENT VISUAL CHECKS WILL BE DONE.PATIENT CONTINUES TO WEAR THE BILATERAL MITTENS TO PREVENT PATIENT FROM DISLODGING SUPRAPUBIC CATHETER AND PICCLINE.FREQUENT VISUAL CHECKS WILL BE DONE.WILL CONTINUE TO MONITOR.
--- NOTE | 2017-07-07 19:58 | NUR ---
NO DISTRESS NOTED RECEIVED ON SUPPLEMENTAL OXYGEN AT 3LPM VIA NC TOLERATING WELL WITHOUT INCIDENT BIPAP VISION IN ROOM
[2017-07-07 20:00] VITALS: BP 112/61
--- NOTE | 2017-07-07 20:50 | NUR ---
FRANCISCO PATTERSON CALLED BACK AND I INFORMED HIM THAT PATIENT CONTINUES TO REMOVE BILATERAL MITTENS AND HE ATTEMPTS TO PULL ON HIS PICCLINE WHICH WAS INSERTED TODAY AND I ALSO INFORMED MD THAT PATIENT IS FIGHTING AND ATTEMPTING TO BITE STAFF AND THE ATIVAN HELPS HIM A LITTLE BUT HE IS STILL RESTLESS ATTEMPTING TO REMOVE MITTENS.FRANCISCO PATTERSON GAVE NEW ORDERS WILL CARRY OUT THE ORDERS.WILL CONTINUE TO OBSERVE THE PATIENT.
--- NOTE | 2017-07-07 20:50 | NUR ---
I CALLED FRANCISCO PATTERSON AND WILL WAIT FOR HIS RETURN CALL.WILL CONTINUE TO MONITOR.
[2017-07-07] MEDS: ATORVASTATIN 20 MG TAB PO SCH (21:19)
[2017-07-07] MEDS: DONEPEZIL 10 MG TAB PO SCH (21:20)
--- NOTE | 2017-07-07 21:20 | NUR ---
PATIENT TOOK HIS ROUTINE MEDS WELL WITH APPLESAUCE WILL CONTINUE TO MONITOR.
[2017-07-07] MEDS: INSULIN DETEMIR 100 UNITS/ML 10 ML VIAL SUBQ SCH (21:25)
--- NOTE | 2017-07-07 22:00 | NUR ---
Patient's Plan of Care was discussed and reviewed with DIRECTOR OF DEMENTIA OPERATIONS: DHEERAJ BARCENAS
[2017-07-08] VITALS: BP 129/64
--- NOTE | 2017-07-08 00:35 | NUR ---
PATIENT SLEEPING ON AND OFF AND IS VERY RESTLESS AT TIMES AND YELLS.NO COMPLAINS OF PAIN OR DISCOMFORT NOTED.CONTINUES TO BE MONITORED.
--- NOTE | 2017-07-08 02:19 | NUR ---
PATIENT STABLE TURNED AND REPOSITIONED WITH THE ASSISTANCE OF [employer] CHAMBERS.PATIENT COMFORTABLE WILL CONTINUE TO MONITOR.
[2017-07-08] MEDS: LORazepam 1 MG TAB PO PRN (03:11)
[2017-07-08] MEDS: diphenhydrAMINE 50 MG CAP PO PRN ×2 (03:16→12:23)
--- NOTE | 2017-07-08 04:52 | NUR ---
PATIENT CONTINUES TO BE RESTLESS AND HOLLERING AND SCREAMING CAN BE HEARD IN THE HALLWAYS AND AROUND NURSES STATION.
[2017-07-08] MEDS: LEVOTHYROXINE 0.1 MG TAB PO SCH (05:43)
[2017-07-08] MEDS: BLOOD GLUCOSE MONITORING 1 DEV DEV FS SCH ×4 (05:51→21:00)
[2017-07-08] MEDS: PANTOPRAZOLE 40 MG TABEC PO SCH ×2 (06:50→18:00)
--- NOTE | 2017-07-08 07:03 | NUR ---
PATIENT SLEEPING IN BED STABLE NO DISTRESS WILL CONTINUE TO MONITOR.
--- NOTE | 2017-07-08 07:24 | NUR ---
REPORT ENDORSED AT BEDSIDE TO COSME AMES SHE WILL RESUME CARE OF THE PATIENT.
--- NOTE | 2017-07-08 07:25 | NUR ---
RECEIVED HANDOFF REPORT FROM PM RN. PATIENT SLEEPING. A&OX1 IV SITE PATENT AND INTACT. NO SIGNS OR SYMPTOMS OF ACUTE DISTRESS NOTED. CALL LIGHT WITHIN REACH. WILL CONTINUE TO MONITOR.
[2017-07-08 08:00] VITALS: BP 107/43
[2017-07-08] MEDS: cloNIDine 0.1 MG TAB PO SCH ×2 (09:00→22:50)
[2017-07-08] MEDS: traMADol 50 MG TAB PO SCH (09:07)
[2017-07-08] MEDS: amLODIPine 5 MG TAB PO SCH (09:07)
[2017-07-08] MEDS: CALCIUM CARB/VIT-D 500 MG/200 IU 1 TAB PO SCH ×2 (09:07→22:49)
[2017-07-08] MEDS: hydrOXYzine HCL 10 MG TAB PO SCH ×3 (09:07→18:00)
[2017-07-08] MEDS: MAGNESIUM OXIDE 400 MG TAB PO SCH (09:07)
[2017-07-08] MEDS: SIMETHICONE 80 MG TAB.CHEW PO SCH ×3 (09:08→18:01)
[2017-07-08] MEDS: FERROUS SULFATE 325 MG TABEC PO SCH ×2 (09:08→22:47)
[2017-07-08] MEDS: VIT-B COMP/VIT-C/FOLIC ACID 1 TAB PO SCH (09:08)
[2017-07-08] MEDS: ZINC SULF 220 MG CAP PO SCH (09:08)
[2017-07-08] MEDS: QUEtiapine FUMARATE 25 MG TAB PO SCH ×2 (09:08→22:49)
[2017-07-08] MEDS: POTASSIUM CHLORIDE 10 MEQ TABER PO SCH ×2 (09:08→18:00)
[2017-07-08] MEDS: PIPER/TAZO 2.25GM/D5W PREMIX 50 ML IV SCH ×2 (09:09→22:47)
[2017-07-08] MEDS: FLUTICASONE NASAL 50 MCG/ACTUATION 16 GM BTL NS SCH ×2 (09:09→21:00)
--- NOTE | 2017-07-08 09:10 | NUR ---
AM MEDS GIVEN WITH EDUCATION. REINFORCEMENT NEEDED. NO SIGNS OR SYMPTOMS OF ACUTE DISTRESS NOTED. FLACC 0. CALL LIGHT WITHIN REACH. WILL CONTINUE TO MONITOR.
--- NOTE | 2017-07-08 10:30 | NUR ---
WOUND CARE FOLLOW UP RE-EVALUATION INTEGUMENTARY: TRUNK, BACK, UE AND LE: SKIN RASHES IMPROVEMENT NOTICE, NO NEW RASHES NOTICE. SUPRAPUBIC CYSTOSTOMY CLEAN WITH CATH #16 [address] COCCYX - ST III - 1 .8X 1.6 X 0.3CM - 100% GRANULATING TISSUE. PW MACERATED. RIGHT HEEL - DIABETIC ULCER - 8.5 X 6 X UTD - 60% YELLOW AND 40% PINK. PW RED. RIGHT ACHILLES TENDON - DIABETIC ULCER - 3X 2 X UTD - 100% YELLOW. PW RED. RECOMMENDATIONS: -CLEANSE RIGHT HEEL AND RIGHT ACHILLES WITH NS, PAT DRY, APPLY THERAHONEY GEL, COVER WITH ADAPTIC, AND DRY DRESSING AND SALVADOR Q DAY AND PRN IF SOILING -CLEANSE COCCYX WITH NS AND GAUZE, PAT DRY, APPLY THERAHONEY GEL, PACK WITH ALGINATE AND APPLY Z GUARD TO PW, COVER WITH ADAPTIC AND DRY DRESSING SECURE WITH TAPE BIDWC AND PRN IF SOILING -TURN AND REPOSITION PATIENT Q2H TO LEFT AND RIGHT SIDE ONLY TO OFFLOAD SACRALCOCCYX -ASSESS AND MONITOR SKIN CONDITION DURING POSITION CHANGE, PLEASE PAY PARTICULAR ATTENTION TO SACRALCOCCYX AND HEELS -OFFLOAD BILATERAL HEELS BY PLACING PILLOWS UNDER CALVES AT ALL TIMES, UNLESS OTHERWISE CONTRAINDICATED -TAX EXPERT CONSULT AND DEBRIDEMENT OF RIGHT HEEL -PRESSURE REDISTRIBUTION SURFACE THERAPY -KEEP SKIN CLEAN AND DRY AT ALL TIMES. APPLY SACRAL FORM DRESSING FOR PREVENTING MOISTURE RELATED DERMATITIS COMORBIDITIES RELATED TO SKIN BREAKDOWN: DM, CHRONIC BOWEL INCONTINENCE, DECREASE MOBILITY, REFUSALOD SOME ASPECTS OF CARE AND TREATMENT, HX OF PRESSURE ULCER. RECOMMENDATIONS DISCUSSED WITH PRIMARY RN WILL FOLLOW UP PATIENT Q 7 -10 DAYS AND PRN. PLEASE CONTACT WOUND CARE NURSE FOR ANY CONCERNS AND CHANGES IN WOUND CONDITION
--- NOTE | 2017-07-08 11:37 | NUR ---
1120 CALL PLACED TO YAMILE IN ADMISSIONS AT [facility] REGARDING BED AVAILABILITY. LEFT VM MESSAGE.
[2017-07-08] MEDS: THERAHONEY GEL 42.5 GM TP SCH (12:07)
[2017-07-08] MEDS: Z-GUARD PASTE TP SCH (12:07)
[2017-07-08] MEDS ORDERED: ALGINATE ROPE TP PRN (12:25)
[2017-07-08] MEDS: INSULIN LISPRO SLIDING SCALE 100 UNITS/ML VIAL SUBQ PRN (12:30)
--- NOTE | 2017-07-08 12:48 | NUR ---
AFTERNOON MEDS GIVEN WITH EDUCATION. REINFORCEMENT NEEDED. NO SIGNS OR SYMPTOMS OF ACUTE DISTRESS NOTED. FLACC 0. CALL LIGHT WITHIN REACH. WILL CONTINUE TO MONITOR.
[2017-07-08] MEDS ORDERED: ALGINATE ROPE TP SCH (13:00)
--- NOTE | 2017-07-08 15:46 | NUR ---
PATIENT MOVED TO WOUND CARE MATTRESS. PATIENT TOLERATED WELL. FLACC 0. NO SIGNS OR SYMPTOMS OF ACUTE DISTRESS NOTED. CALL LIGHT WITHIN REACH. WILL CONTINUE TO MONITOR.
[2017-07-08 16:00] VITALS: BP 141/64
--- NOTE | 2017-07-08 19:30 | NUR ---
RECEIVED HANDOFF REPORT FROM DAY NURSE, A&OX1, PICC LINE SITE PATENT AND INTACT, LT UPPER ARM AV SHUNT, SUPRAPUBIC CATHETER PATENT AND INTACT, PT ON 3 VIA NC, INITIAL ASSESSMENT COMPLETED, NO SIGNS OR SYMPTOMS OF ACUTE DISTRESS NOTED. CALL LIGHT WITHIN REACH. WILL CONTINUE TO MONITOR.
--- NOTE | 2017-07-08 19:31 | NUR ---
PT RESTING COMFORTABLY IN BED, PT IS DRY, NO S/S OF DISTRESS NOTED. ALL SAFETY PRECAUTIONS MET, CALL LIGHT WITHIN REACH, WILL CONTINEU TO MONITOR,
--- NOTE | 2017-07-08 21:03 | NUR ---
PT RESTING COMFORTABLY IN BED, PT IS DRY, NO S/S OF DISTRESS NOTED. ALL SAFETY PRECAUTIONS MET, CALL LIGHT WITHIN REACH, WILL CONTINEU TO MONITOR,
[2017-07-08] MEDS: INSULIN DETEMIR 100 UNITS/ML 10 ML VIAL SUBQ SCH (22:45)
[2017-07-08] MEDS: ATORVASTATIN 20 MG TAB PO SCH (22:47)
[2017-07-08] MEDS: DONEPEZIL 10 MG TAB PO SCH (22:49)
--- NOTE | 2017-07-08 22:50 | NUR ---
ALL DUE MEDICATIONS GIVEN, PT TOLERATED WELL, NO S/S OF DISTRESS NOTED. ALL SAFETY PRECAUTIONS MET, CALL LIGHT WITHIN REACH
[2017-07-09] VITALS: BP 100/51
--- NOTE | 2017-07-09 00:30 | NUR ---
PT RESTING COMFORTABLY IN BED, PT IS DRY, NO S/S OF DISTRESS NOTED. ALL SAFETY PRECAUTIONS MET, CALL LIGHT WITHIN REACH, WILL CONTINUE TO MONITOR,
--- NOTE | 2017-07-09 02:00 | NUR ---
PT HAD BM, PT CHANGED, LINEN CHANGED. PT IS CLEAN AND DRY, NO S/S OF DISTRESS NOTED. CALL LIGHT WITHIN REACH
--- NOTE | 2017-07-09 04:00 | NUR ---
PT RESTING COMFORTABLY IN BED, PT IS DRY AND CLEAN, NO S/S OF DISTRESS NOTED. CALL LIGHT WITHIN REACH
[2017-07-09] MEDS: LEVOTHYROXINE 0.1 MG TAB PO SCH (05:52)
--- NOTE | 2017-07-09 06:03 | NUR ---
PTS BLOOD SUGAR CHECKED, BS WAS 30 50% DEXTROSE INJECTION GIVEN IV PUSH Addendum: 07/09/17 at 0650 by Carley Taylor RN PT AWAKE AND ALERT
[2017-07-09] MEDS: DEXTROSE 50% 50 ML SYR IVP PRN (06:04)
[2017-07-09] MEDS: BLOOD GLUCOSE MONITORING 1 DEV DEV FS SCH ×4 (06:08→21:00)
--- NOTE | 2017-07-09 06:53 | NUR ---
PTS BS RECHECKED. BS IS 80 PT IS AWAKE AND ALERT
--- NOTE | 2017-07-09 07:22 | NUR ---
ENDORSED PLAN OF CARE TO AM NURSE, PT IN STABLE CONDITION. NO S/S OF DISTRESS NOTED. CALL LIGHT IS WITHIN REACH
--- NOTE | 2017-07-09 07:23 | NUR ---
RECEIVED HANDOFF REPORT FROM PM RN. PATIENT A&OX1. PICC LINE PATENT AND INTACT. FLACC 0. PATIENT ON 3L O2 VIA NASAL CANNULA. NO SIGNS OR SYMPTOMS OF ACUTE DISTRESS NOTED. CALL LIGHT WITHIN REACH. WILL CONTINUE TO MONITOR.
[2017-07-09 08:00] VITALS: BP 102/43
[2017-07-09] MEDS: ZINC SULF 220 MG CAP PO SCH (08:05)
[2017-07-09] MEDS: MAGNESIUM OXIDE 400 MG TAB PO SCH (08:05)
[2017-07-09] MEDS: CALCIUM CARB/VIT-D 500 MG/200 IU 1 TAB PO SCH ×2 (08:05→22:14)
[2017-07-09] MEDS: POTASSIUM CHLORIDE 10 MEQ TABER PO SCH ×2 (08:05→18:27)
[2017-07-09] MEDS: VIT-B COMP/VIT-C/FOLIC ACID 1 TAB PO SCH (08:06)
[2017-07-09] MEDS: FERROUS SULFATE 325 MG TABEC PO SCH (08:06)
[2017-07-09] MEDS: QUEtiapine FUMARATE 25 MG TAB PO SCH ×2 (08:06→22:13)
[2017-07-09] MEDS: hydrOXYzine HCL 10 MG TAB PO SCH ×3 (08:06→18:26)
[2017-07-09] MEDS: SIMETHICONE 80 MG TAB.CHEW PO SCH ×3 (08:07→18:26)
[2017-07-09] MEDS: cloNIDine 0.1 MG TAB PO SCH ×2 (08:08→22:15)
[2017-07-09] MEDS: amLODIPine 5 MG TAB PO SCH (08:09)
[2017-07-09] MEDS: PIPER/TAZO 2.25GM/D5W PREMIX 50 ML IV SCH ×2 (08:21→22:13)
[2017-07-09] MEDS: FLUTICASONE NASAL 50 MCG/ACTUATION 16 GM BTL NS SCH ×2 (08:21→22:15)
[2017-07-09] MEDS: PANTOPRAZOLE 40 MG TABEC PO SCH (08:30)
[2017-07-09] MEDS: ONDANSETRON 4 MG ODT PO PRN (08:31)
--- NOTE | 2017-07-09 08:33 | NUR ---
AM MEDICATIONS GIVEN WITH EDUCATION. PT TOLERATED WELL. PT STATES HE FEELS NAUSEOUS. ZOFRAN GIVEN. WIDE AREA NETWORK ENGINEER AT BEDSIDE. WILL CONTINUE TO MONITOR.
--- NOTE | 2017-07-09 13:00 | NUR ---
DIALYSIS IN TO SEE PATIENT 1.6 LITERS REMOVED. PATIENT REMAINS STABLE. FLACC 0. NO SIGNS OR SYMPTOMS OF ACUTE DISTRESS NOTED. CALL LIGHT WITHIN REACH. WILL CONTINUE TO MONITOR.
[2017-07-09] MEDS: THERAHONEY GEL 42.5 GM TP SCH (13:38)
[2017-07-09] MEDS: ALGINATE ROPE TP SCH (13:44)
[2017-07-09] MEDS: Z-GUARD PASTE TP SCH (13:44)
[2017-07-09] MEDS ORDERED: EPOETIN ALFA IV SCH (14:54)
[2017-07-09] MEDS ORDERED: VANCOMYCIN 500 MG in DEXTROSE 5% 100 ML IV SCH (15:00)
[2017-07-09 16:00] VITALS: BP 113/47
--- NOTE | 2017-07-09 16:01 | NUR ---
PATIENT SLEEPING. FLACC 0. NO SIGNS OR SYMPTOMS OF ACUTE DISTRESS NOTED. CALL LIGHT WITHIN REACH. WILL CONTINUE TO MONITOR.
[2017-07-09] MEDS: INSULIN LISPRO SLIDING SCALE 100 UNITS/ML VIAL SUBQ PRN ×2 (18:32→22:14)
--- NOTE | 2017-07-09 19:32 | NUR ---
ENDORSED PLAN OF CARE TO PM RN. PATIENT IN STABLE CONDITION. NO SIGNS OR SYMPTOMS OF ACUTE DISTRESS NOTED.
--- NOTE | 2017-07-09 19:45 | NUR ---
RECEIVED REPORT FROM AM NURSE. PT RESTING IN BED, AOX1, ABLE TO VERBALIZE NEEDS, PT REORIENTED, WILL CONTINUE WITH CONSTANT REINFORCEMENT. PT DENIES CHEST PAIN, SOB OR S/S OF ACUTE DISTRESS. PT SEEN WITH O2 NC AT BEDSIDE, O2 2L NC PUT BACK ON, SPO2 99%, RR 20 UNLABORED, PT REINFORCED TO KEEP O2 NC ON. LEFT AV SHUNT NOTED, THRILL AND BRUIT NOTED. SUPRAPUBIC CATH NOTED, DRESSING CLEAN DRY AND INTACT, DRAINING CLOUDY [place] URINE. SACRAL DRESSING CLEAN DRY AND INTACT. RIGHT HEEL DRESSING CLEAN DRY AND INTACT. HEEL PROTECTORS ENSURED. RIGHT UPPER ARM PICC 2X LUMEN AND DRESSING ASYMPTOMATIC AND INTACT. IVF INFUSING WELL. DISCUSSED AND REVIEWED PLAN OF CARE WITH PT. WILL CONTINUE WITH CONSTANT REINFORCEMENT. PT TURNED AND REPOSITIONED, OFFLOADED PRESSURE AREAS. PT TOLERATED WELL. ALL NEEDS MET. IVF INFUSING WELL. SAFETY MEASURES ENSURED. CALL LIGHT WITHIN REACH. WILL CONTINUE TO MONITOR.
[2017-07-09 20:00] VITALS: BP 145/66
--- NOTE | 2017-07-09 20:45 | NUR ---
1400 CALL PLACED TO [facility] AND LEFT FOR YAMILE IN ADMISSIONS FOR CALL BACK REGARDING BED STATUS FOR PT TRANSFER BACK TO FACILITY. 1630 NO CALL BACK FROM [facility].
[2017-07-09] MEDS: DONEPEZIL 10 MG TAB PO SCH (22:14)
[2017-07-09] MEDS: SENNA 8.6 MG TAB PO SCH (22:14)
[2017-07-09] MEDS: ATORVASTATIN 20 MG TAB PO SCH (22:14)
--- NOTE | 2017-07-09 22:15 | NUR ---
INSULIN COVERAGE ADMINISTERED WITH EVENING SNACK AND EDUCATION. ADMINISTERED DUE MEDICATIONS WITH EDUCATION. PT STATED "OK," ABLE TO SWALLOW AND TOLERATE MEDS WELL. ALL NEEDS MET. IVF INFUSING WELL. SAFETY MEASURES ENSURED. CALL LIGHT WITHIN REACH. WILL CONTINUE TO MONITOR.
[2017-07-09] MEDS: INSULIN DETEMIR 100 UNITS/ML 10 ML VIAL SUBQ SCH (22:30)
[2017-07-10] VITALS: BP 134/57
--- NOTE | 2017-07-10 00:17 | NUR ---
PT SLEEPING COMFORTABLY, AROUSABLE TO NAME. NO S/S OF ACUTE DISTRESS. ALL NEEDS MET. IVF INFUSING WELL. SAFETY MEASURES ENSURED. CALL LIGHT WITHIN REACH. WILL CONTINUE TO MONITOR. Addendum: 07/10/17 at 0516 by Kiel Hernandez RN PT TURNED AND REPOSITIONED BY CNAs, OFFLOADED PRESSURE AREAS. PT TOLERATED WELL.
--- NOTE | 2017-07-10 01:46 | NUR ---
WOUND CARE PERFORMED ORDERED. DRESSINGS TO SACRUM AND RIGHT HEEL CHANGED, CLEAN DRY AND INTACT. PT TOLERATED WELL. ALL NEEDS MET. IVF INFUSING WELL. SAFETY MEASURES ENSURED. CALL LIGHT WITHIN REACH. WILL CONTINUE TO MONITOR. Addendum: 07/10/17 at 0514 by Kiel Hernandez RN PT TURNED AND REPOSITIONED, OFFLOADED PRESSURE AREAS. PT TOLERATED WELL.
--- NOTE | 2017-07-10 04:13 | NUR ---
PT TURNED AND REPOSITIONED, OFFLOADED PRESSURE AREAS. PT TOLERATED WELL. ALL NEEDS MET. IVF INFUSING WELL. SAFETY MEASURES ENSURED. CALL LIGHT WITHIN REACH. WILL CONTINUE TO MONITOR.
[2017-07-10] MEDS: ALGINATE ROPE TP SCH ×2 (04:37→13:20)
[2017-07-10] MEDS: LEVOTHYROXINE 0.1 MG TAB PO SCH (05:49)
[2017-07-10] MEDS: DEXTROSE 50% 50 ML SYR IVP PRN ×2 (05:58→07:55)
--- NOTE | 2017-07-10 06:00 | NUR ---
HEARD PT FROM [facility] ASKING FOR A DRINK OF WATER. BLOOD SUGAR CHECKED, 25. PT IS AWAKE, ALERT AND ABLE TO COMMUNICATE NEEDS. ADMINISTERED D50 PRN ORDERED WITH EDUCATION. GAVE PT SNACKS AND WATER. ADMINISTERED REMAINING DUE MED WITH EDUCATION. PT STATED "OK." WILL RECHECK BLOOD SUGAR, WILL MONITOR PT.
[2017-07-10] MEDS: BLOOD GLUCOSE MONITORING 1 DEV DEV FS SCH ×5 (06:04→21:21)
--- NOTE | 2017-07-10 06:20 | NUR ---
BLOOD SUGAR RECHECKED, 107. PT ASYMPTOMATIC, CONDITION STABLE.
--- NOTE | 2017-07-10 07:29 | NUR ---
ENDORSED PLAN OF CARE TO AM NURSE. CONDITION STABLE.
--- NOTE | 2017-07-10 07:29 | NUR ---
RECEIVED REPORT FROM NIGHT NURSE, PT IS AAOX2 [place], ON O2 2L VIA NC, RIGHT UPPER ARM DOUBLE LUMEN, LEFT AV SHUNT , SUPRAPUBIC CATH, SACRAL WOUND, RIGHT HEEL WOUND, INITIAL ASSESSMENT COMPLETED, REVIEWED PLAN OF CARE WITH PT PT, VERBALIZED UNDERSTANDING , ALL SAFETY PRECAOUTIONS MET. WILL CONTINUE TO MONITOR.
--- NOTE | 2017-07-10 07:55 | NUR ---
D50 PUSH GIVEN, BLOOD SUGAR 40. WILL REASSESS BLOOD SUGAR
[2017-07-10 08:00] VITALS: BP 103/66
--- NOTE | 2017-07-10 08:08 | NUR ---
BLOOD SUGAR RECHECK AT 130. WILL CONTINUE TO MONITOR.
--- NOTE | 2017-07-10 08:42 | NUR ---
BLOOD SUGAR REASSESSED 191. WILL CONTINUE TO MONITOR.
[2017-07-10] MEDS: VIT-B COMP/VIT-C/FOLIC ACID 1 TAB PO SCH (08:53)
[2017-07-10] MEDS: QUEtiapine FUMARATE 25 MG TAB PO SCH ×2 (08:54→21:13)
[2017-07-10] MEDS: SIMETHICONE 80 MG TAB.CHEW PO SCH ×3 (08:54→16:24)
[2017-07-10] MEDS: SENNA 8.6 MG TAB PO SCH ×3 (08:55→21:12)
[2017-07-10] MEDS: CALCIUM CARB/VIT-D 500 MG/200 IU 1 TAB PO SCH ×2 (08:55→21:11)
[2017-07-10] MEDS: hydrOXYzine HCL 10 MG TAB PO SCH ×3 (08:55→16:24)
[2017-07-10] MEDS: POTASSIUM CHLORIDE 10 MEQ TABER PO SCH ×2 (08:55→16:25)
[2017-07-10] MEDS: ZINC SULF 220 MG CAP PO SCH (08:55)
[2017-07-10] MEDS: MAGNESIUM OXIDE 400 MG TAB PO SCH (08:55)
[2017-07-10] MEDS: PIPER/TAZO 2.25GM/D5W PREMIX 50 ML IV SCH (08:56)
[2017-07-10] MEDS: FLUTICASONE NASAL 50 MCG/ACTUATION 16 GM BTL NS SCH ×2 (08:57→21:17)
[2017-07-10] MEDS: cloNIDine 0.1 MG TAB PO SCH ×2 (09:00→21:16)
[2017-07-10] MEDS: amLODIPine 5 MG TAB PO SCH (09:00)
[2017-07-10] MEDS ORDERED: POTASSIUM CHLORIDE 10 MEQ TABER PO SCH (11:15)
[2017-07-10] MEDS ORDERED: MAG SULF 2000 MG/WATER PREMIX 50 ML IV SCH (11:15)
--- NOTE | 2017-07-10 11:45 | NUR ---
PT CURRENTLY RESTING IN BED, ALL NEEDS MET, WILL CONTINUE TO MONITOR
[2017-07-10] MEDS: ONDANSETRON 4 MG ODT PO PRN (13:19)
[2017-07-10] MEDS: THERAHONEY GEL 42.5 GM TP SCH (13:20)
[2017-07-10] MEDS: Z-GUARD PASTE TP SCH (13:20)
--- NOTE | 2017-07-10 13:21 | NUR ---
DUE MEDICATIONS GIVEN, PT TOLERATED WELL, PT CURRENTLY WATCHING TV, NO S/S OF DISTRESS NOTED. WILL CONTINUE TO MONITOR.
[2017-07-10] MEDS ORDERED: POTASSIUM PHOSPHATE 15 MM in NACL 0.9% 250 ML IV SCH (15:00)
[2017-07-10 16:00] VITALS: BP 120/55
--- NOTE | 2017-07-10 16:32 | NUR ---
PT CURRENTLY RESTING, DUE MEDICATIONS GIVEN. ALL NEEDS MET. WILL CONTINUE TO MONITOR.
--- NOTE | 2017-07-10 18:25 | NUR ---
PT CURRENTLY SLEEPING, AWAKENS TO NAME. ALL NEEDS MET. WILL CONTINUE TO MONITOR.
--- NOTE | 2017-07-10 19:17 | NUR ---
ENDORSED PLAN OF CARE TO NIGHT NURSE, PT IN STABLE CONDITION
--- NOTE | 2017-07-10 19:30 | NUR ---
RECEIVED PT FROM WALE AGUIAR PT AOX1 HX DEMENTIA , PICC LINE ON RT UPPER ARM, AV SHUNT DIALYSIS ACCESS ON LEFT UPPER ARM PT NOT DISTRESS NOTED AT THIS TIME INITIAL ASSESSMENT DONE
[2017-07-10] MEDS: ALBUTEROL 0.083% 2.5 MG/3 ML NEBU INH PRN (19:39)
--- NOTE | 2017-07-10 20:17 | NUR ---
1999 placed patient on bipap due to shortness of breath. patient given hhntx. sats on ra was 86% settings of bipap are ipap 12 epap 6 rr12 and 40% pt improved after hhntx and on bipap
[2017-07-10] MEDS: INSULIN DETEMIR 100 UNITS/ML 10 ML VIAL SUBQ SCH (21:00)
[2017-07-10] MEDS: ATORVASTATIN 20 MG TAB PO SCH (21:11)
[2017-07-10] MEDS: DONEPEZIL 10 MG TAB PO SCH (21:13)
--- NOTE | 2017-07-10 21:30 | NUR ---
BLOOD SUGAR TEST 122 NOT COVERAGE AN PT WITH POOR APPETITE REFUSED TO EAT LEVEMIR INSULINE IS NO GIVEN FOR HX THIS am to have had low blood sugar,
--- NOTE | 2017-07-10 23:00 | NUR ---
PT TOOK BIPAP OFF. TRIED TO PUT O2 BACK ON HIM BUT DANIEL WAS HITTING.. PT WOULD NOT LET US CHECK HIS SATS..RN AWARE. PT DOES NOT HAVE SOB AT THIS TIME
[2017-07-11] VITALS: BP 149/69
[2017-07-11] MEDS: ALGINATE ROPE TP SCH ×2 (01:00→13:00)
--- NOTE | 2017-07-11 01:00 | NUR ---
PT STABLE NOT SOB NOTED 02 SAT 97% REPOSITONED Q2H
--- NOTE | 2017-07-11 04:00 | NUR ---
SPONGE BATH GIVEN LINEN CHANGED SURPA PUBIC CATHETER DRAINING SMALL AMOUNT OF YELLOW COLOR URINE
[2017-07-11] MEDS: LEVOTHYROXINE 0.1 MG TAB PO SCH (05:58)
[2017-07-11] MEDS: BLOOD GLUCOSE MONITORING 1 DEV DEV FS SCH ×2 (06:06→11:37)
[2017-07-11] MEDS: INSULIN LISPRO SLIDING SCALE 100 UNITS/ML VIAL SUBQ PRN ×2 (06:08→12:33)
--- NOTE | 2017-07-11 07:04 | NUR ---
BLOOD SUGAR TEST 173 COVERAGE WITH 2 UNITS REG INSULIN, AT ROOM AIR, 98% NOT RESP DISTRESS NOTED.
--- NOTE | 2017-07-11 07:15 | NUR ---
RECEIVED REPORT FROM NIGHT NURSE, PT IS AAOX2 [place], ON O2 2L VIA NC, RIGHT UPPER ARM DOUBLE LUMEN, LEFT AV SHUNT , SUPRAPUBIC CATH, SACRAL WOUND, RIGHT HEEL WOUND, INITIAL ASSESSMENT COMPLETED, REVIEWED PLAN OF CARE WITH PT PT, VERBALIZED UNDERSTANDING , ALL SAFETY PRECAUTIONS MET. WILL CONTINUE TO MONITOR.
[2017-07-11 08:00] VITALS: BP 146/64
--- NOTE | 2017-07-11 08:07 | NUR ---
AWAKE AND ALERT SATURATION 85% ON ROOM AIR POST HHN THERAPY PLACED PATIENT BACK ON SUPPLEMENTAL OXYGEN AT 3 LPM VIA NC HEMODIALYSIS IN PROGRESS Addendum: 07/11/17 at 0836 by Gonzalez Beckman RT RESPIRONICS BIPAP VISION IN ROOM FOR PRN USAGE
[2017-07-11] MEDS: ALBUTEROL 0.083% 2.5 MG/3 ML NEBU INH PRN ×2 (08:17→14:29)
[2017-07-11] MEDS: amLODIPine 5 MG TAB PO SCH (09:00)
[2017-07-11] MEDS ORDERED: EPOETIN ALFA 4,000 UNITS/ML VIAL IV SCH (09:00)
[2017-07-11] MEDS ORDERED: EPOETIN ALFA IV SCH (09:00)
[2017-07-11] MEDS: cloNIDine 0.1 MG TAB PO SCH (09:00)
[2017-07-11] MEDS: FLUTICASONE NASAL 50 MCG/ACTUATION 16 GM BTL NS SCH (09:14)
[2017-07-11] MEDS: SENNA 8.6 MG TAB PO SCH (09:15)
[2017-07-11] MEDS: MAGNESIUM OXIDE 400 MG TAB PO SCH (09:15)
[2017-07-11] MEDS: ZINC SULF 220 MG CAP PO SCH (09:15)
[2017-07-11] MEDS: hydrOXYzine HCL 10 MG TAB PO SCH ×2 (09:15→12:29)
[2017-07-11] MEDS: VIT-B COMP/VIT-C/FOLIC ACID 1 TAB PO SCH (09:15)
[2017-07-11] MEDS: QUEtiapine FUMARATE 25 MG TAB PO SCH (09:15)
[2017-07-11] MEDS ORDERED: EPOETIN ALFA 2,000 UNITS/ML VIAL ONE (09:15)
[2017-07-11] MEDS: SIMETHICONE 80 MG TAB.CHEW PO SCH ×2 (09:16→12:29)
[2017-07-11] MEDS: CALCIUM CARB/VIT-D 500 MG/200 IU 1 TAB PO SCH (09:16)
--- NOTE | 2017-07-11 09:35 | NUR ---
DUE MEDICATIONS GIVEN, PT CURRENTLY GETTING DIALYSIS, BP MEDICATION NOT GIVEN , PROCRIT STK-MED 2,000 NOT GIVEN, ALREADY GAVE A TOTAL OF 5000, DIALYSIS NURSE CURRENTLY IN ROOM, ALL NEEDS MET. WILL CONTINUE TO MONITOR.
[2017-07-11] MEDS: Z-GUARD PASTE TP SCH (13:00)
[2017-07-11] MEDS: THERAHONEY GEL 42.5 GM TP SCH (13:00)
--- NOTE | 2017-07-11 13:17 | NUR ---
PT CURRENTLY EATING, AT BEDSIDE, ALL NEEDS MET. WILL CONTINUE TO MONITOR.
--- NOTE | 2017-07-11 13:21 | NUR ---
1025 RECEIVED CALL FROM YAMILE IN ADMISSIONS AT [facility] AND HE STATED THAT PT CAN GO TO ROOM 101C. CALL REPORT TO [phone] AND REQUEST NURSING STATION FOR ROOM 101. [facility] TRANSPORT SET UP FOR 1500 PICKUP.
--- NOTE | 2017-07-11 14:00 | NUR ---
PT UNABLE TO SIGNED DISCHARGE PAPERWORK, DISCHARGE EDUCATION GIVEN TO PT AND , ALL PERSONAL BELONGINGS WITH PT, Addendum: 07/11/17 at 1542 by Sylvia Varela RN DISCHARGE PICTURES TAKEN.
--- NOTE | 2017-07-11 14:15 | NUR ---
GAVE REPORT TO LUISA AGUIAR [phone] [facility].
--- NOTE | 2017-07-11 15:30 | NUR ---
[facility] IN TO X RAY CONTROL EQUIPMENT REPAIRER PT. PT DISCHARGE IN STABLE CONDITION
== END 2017-07-11 15:30 | disposition home or self-care (01) | DRG 871 ==
LOC: MED 20:48 → MTU 07-01 00:46
PROVIDERS: ADMIT Preventive Medicine Preventive Medicine/Occupational Environmental Medicine; ATTEND Preventive Medicine Preventive Medicine/Occupational Environmental Medicine
PROC: 5A09357 Assistance with Respiratory Ventilation, Less than 24 Consecutive Hours, Continuous Positive Airway Pressure (ICD-10-PCS; 2017-07-01)
PROC: 5A1D60Z (ICD-10-PCS; principal; 2017-07-02)
PROC: 02HV33Z Insertion of Infusion Device into Superior Vena Cava, Percutaneous Approach (ICD-10-PCS; 2017-07-07)
PROC: B548ZZA Ultrasonography of Superior Vena Cava, Guidance (ICD-10-PCS; 2017-07-07)
DX: A41.9 Sepsis, unspecified organism (principal); J96.00 Acute respiratory failure, unspecified whether with hypoxia or hypercapnia; I63.9 Cerebral infarction, unspecified; N18.6 End stage renal disease; J18.9 Pneumonia, unspecified organism; L89.159 Pressure ulcer of sacral region, unspecified stage; I13.11 Hypertensive heart and chronic kidney disease without heart failure, with stage 5 chronic kidney disease, or end stage renal disease; E11.22 Type 2 diabetes mellitus with diabetic chronic kidney disease; J44.0 Chronic obstructive pulmonary disease with (acute) lower respiratory infection; T83.090A Other mechanical complication of cystostomy catheter, initial encounter; N39.0 Urinary tract infection, site not specified; L97.419 Non-pressure chronic ulcer of right heel and midfoot with unspecified severity; E87.1 Hypo-osmolality and hyponatremia; E11.65 Type 2 diabetes mellitus with hyperglycemia; D63.1 Anemia in chronic kidney disease; N13.9 Obstructive and reflux uropathy, unspecified; E03.9 Hypothyroidism, unspecified; Y73.8 Miscellaneous gastroenterology and urology devices associated with adverse incidents, not elsewhere classified; E11.42 Type 2 diabetes mellitus with diabetic polyneuropathy; E11.621 Type 2 diabetes mellitus with foot ulcer; F32.9 Major depressive disorder, single episode, unspecified; R74.0 Nonspecific elevation of levels of transaminase and lactic acid dehydrogenase [LDH]; E78.5 Hyperlipidemia, unspecified; E83.39 Other disorders of phosphorus metabolism; E83.42 Hypomagnesemia; E83.52 Hypercalcemia; E87.5 Hyperkalemia; E87.6 Hypokalemia; K76.0 Fatty (change of) liver, not elsewhere classified; B96.5 Pseudomonas (aeruginosa) (mallei) (pseudomallei) as the cause of diseases classified elsewhere; L29.9 Pruritus, unspecified; B95.62 Methicillin resistant Staphylococcus aureus infection as the cause of diseases classified elsewhere; B96.4 Proteus (mirabilis) (morganii) as the cause of diseases classified elsewhere; G30.9 Alzheimer's disease, unspecified; F02.80 Dementia in other diseases classified elsewhere, unspecified severity, without behavioral disturbance, psychotic disturbance, mood disturbance, and anxiety; I25.10 Atherosclerotic heart disease of native coronary artery without angina pectoris; K21.9 Gastro-esophageal reflux disease without esophagitis; Z99.2 Dependence on renal dialysis; Z88.6 Allergy status to analgesic agent; Z86.73 Personal history of transient ischemic attack (TIA), and cerebral infarction without residual deficits; Z88.8 Allergy status to other drugs, medicaments and biological substances; Z90.49 Acquired absence of other specified parts of digestive tract; Z79.4 Long term (current) use of insulin